=== PATIENT | male | born 1955 | race Caucasian/White ===

== ENCOUNTER 2018-05-07 11:02 | Inpatient (IN) ==
[2018-05-09] MEDS ORDERED: MethylPREDNISolone Sod Succinate Inj 125 MG/2 ML Vial ONE (06:25)
[2018-05-09] MEDS ORDERED: Heparin - SQ 10,000 UNITS/ML Vial SQ ONE (06:25)
--- NOTE | 2018-05-09 08:47 | XR ---
EXAM DATE: 05/09/2018 8:43 AM EDT AGE/SEX: 62 years / Male INDICATIONS: Update on right pneumothorax. CLINICAL DATA: This is the patient's subsequent encounter. Patient reports that signs and symptoms h ave been present for 2 days and indicates a pain score of 0/10. MEDICAL/SURGICAL HISTORY: None. . Abdominal aortic aneurysm repair. Right sided chest tube. COMPARISON: No prior exams available for comparison. FINDINGS: Moderate right pneumothorax with parietal and visceral pleura by 3 cm laterally. Left lung clear. Mild compensated cardiomegaly CONCLUSION: Persistent right pneumothorax. Electronically signed by: Ben Monroy MD 05/09/2018 8:46 AM EDT
--- NOTE | 2018-05-09 08:48 | XR ---
EXAM DATE: 05/09/2018 8:45 AM EDT AGE/SEX: 62 years / Male INDICATIONS: Evaluate right pneumothorax post chest tube placement. CLINICAL DATA: This is the patient's subsequent encounter. Patient reports that signs and symptoms h ave been present for 2 days and indicates a pain score of 0/10. MEDICAL/SURGICAL HISTORY: None. . Abdominal aortic aneurysm repair. Right sided chest tube. COMPARISON: [facility] – [place]ST 1V SINGLE AP, 05/09/2018. . FINDINGS: No interval change in the right pneumothorax. Compensated cardiomegaly. Left lung clear. CONCLUSION: Persistent right pneumothorax, no interval change Electronically signed by: Ben Monroy MD 05/09/2018 8:46 AM EDT
[2018-05-09] MEDS ORDERED: MethylPREDNISolone Sod Succinate Inj 125 MG/2 ML Vial IV.PUSH SCH (09:00)
[2018-05-09] MEDS ORDERED: Heparin - SQ 10,000 UNITS/ML Vial SQ SCH (09:00)
[2018-05-09] MEDS ORDERED: fentaNYL Citrate Inj 100 MCG/2 ML Ampul IV.PUSH ONE (09:00)
--- NOTE | 2018-05-09 09:12 | P.PNCC ---
Subjective Subjective Remarks/Hospital Course: Patient is a 62-year-old obese male with past medical history significant for long-standing tobacco abuse, history of AAA status post repair who presented to the emergency department with ongoing shortness of breath and cough. Apparently he woke up yesterday morning with severe coughing spell which progressed to severe shortness of breath and chest pain. Chest x-ray done in ED showed a spontaneous pneumothorax on the right side. A right pigtail chest tube was placed with expansion of pneumothorax. Patient was admitted to the hospitalist service I was contacted today by Dr. Liao as the patient was acutely short of breath. A stat chest x-ray which showed large tension pneumothorax in the right -sided with dislodgment of the pigtail chest tube. Patient was emergently moved to the ICU where I evaluated him. Patient in severe distress oxygen saturation 75% on 100% nonrebreather. Severe wheezing heard on the left side diminished air entry on the right side. Patient is in respiratory extremis. After explaining the procedure I placed emergent right-sided pigtail catheter with immediate relief of symptoms and improvement in O2 sat. Over the next 5 minutes oxygen saturation improved to 90%. Patient was given [id number] breathing treatments. For COPD exacerbation I will place the patient on DuoNeb every 4 hours scheduled and as needed, IV Solu-Medrol 125 mg 1 and 60 mg IV Q 8 hours. Also start him on Symbicort and Spiriva. IV Levaquin for empiric coverage of COPD exacerbation. Will use BiPAP as needed Patient is breathing more comfortably today facemask oxygen. But chest x-ray today a.m. shows right sided moderate pneumothorax. Despite right pigtail chest tube in place. I will place a large bore chest tube today patient agreeable Objective Vital Signs / I&O: Vital Signs 05/09/18 00:00 05/09/18 04:00 05/09/18 05:15 Temperature 97.7 F 97.7 F Pulse Rate 90 70 76 Respiratory Rate 16 15 18 Blood Pressure 133/60 128/59 L Pulse Oximetry 91 L 91 L Intake & Output 05/08/18 05/09/18 05/09/18 18:59 06:59 18:59 Intake Total 240 / 240 Output Total 800 / 800 Balance -560 / -560 Weight 115 kg 117.3 kg Intake: Oral 240 / 240 Output: Urine 800 / 800 Other: # Voids 3 Result Diagrams: 05/07/18 11:00 05/07/18 11:00 Objective Remarks: GENERAL: Well-nourished obese white male, in mild distress, on simple mask SKIN: Warm and dry EYES: No scleral icterus. No injection or drainage. ENT: Simple mask in place CARDIOVASCULAR: S1-S2 normal no murmurs RESPIRATORY: Air entry diminished on the right side bilateral mild wheezing. Right-sided pigtail catheter in place with 1+ leak GASTROINTESTINAL: Abdomen soft, non-tender. Obese protuberant Extremities: No obvious deformities. NEUROLOGICAL: Awake and alert. No focal deficits Assessment and Plan - Assessment and Plan Plan: ASSESSMENT: Recurrent right-sided pneumothorax Large right tension pneumothorax status post right-sided chest tube Acute hypoxemic respiratory failure Acute COPD exacerbation History of AAA repair Tobacco abuse PLAN: NEURO: -As needed morphine for pain otherwise minimize sedation RESP: -s/p Right 10 [place] pigtail chest tube emergently placed for right-sided tension pneumothorax 05/08 -There is some reexpansion of pneumothorax without tension, plan to place new large bore chest tube today -Avoid BiPAP if possible -IV Solu-Medrol 125 mg IV 1 and 60 mg IV every 8 hours -DuoNeb every 4 hours, Symbicort, and Spiriva. DuoNeb every 2 hours as needed for shortness of breath -Levaquin 500 mg IV daily 24 hours -Strongly advised to quit smoking CV: -Normal saline IV fluids 50 ml per hour for 24 hours -Continue aspirin 325 mg daily GI: -Heart healthy diet after new chest tube is placed : -Monitor renal function closely. No indication for Bryant catheter ID: -Check sputum culture if available, IV Levaquin empirically HEME: -Monitor CBC, CMP, coags if needed ENDO: -Electrolyte replacement per ICU protocol PROPH: -Bilateral lower extremity SCDs. Heparin 5000 units subcu every 8 hours-hold for chest tube placement LINES: -Utilize peripheral IVs, central line if needed CC time 32 min excluding procedures Code Status: Full
[2018-05-09] MEDS ORDERED: Lidocaine 1%/Epinephrine 1:100,000 Inj 50 ML Vial ONE (09:34)
--- NOTE | 2018-05-09 10:13 | P.PCN ---
Date of procedure: 05/09/18 Pre-op diagnosis: Large right pneumothorax Post-op diagnosis: same Procedure: PROCEDURE: Right-sided 20 F chest tube placement INDICATION: Hypoxemic respiratory failure, large right pneumothorax CONSENT: Consent was obtained from patient prior to the procedure. Indications, risks, and benefits were explained. PROCEDURE SUMMARY: Chest x-ray, reviewed, the appropriate side was confirmed. I wore a surgical cap , mask with protective eyewear, sterile gown and sterile gloves throughout the procedure. The patient was prepped and draped in a sterile manner using chlorhexidine scrub after the appropriate level was confirmed. 1% lidocaine with epi was used to anesthetize the skin, subcutaneous tissue, superior aspect of the rib periosteum and parietal pleura. A 1 cml skin incision was made at the marked site and Edyta forceps was used to blunt dissect to the intercostal space and then to enter the pleural space. There was a large gaxiola of air. Finger was used to explore the track and the pleural space. A 20F chest tube was placed and connected to -40 wall suction, and there was initially 4+ airleak. Chest tube was secured with 0 silk sutures and occlusive dressing was applied. Oxygen saturation improved 95. A post-procedure chest x-ray is pending at the time of this note. Estimated blood loss is < 3 ml. Anesthesia: local Surgeon: Bety Mayfield Estimated blood loss (mL): 3 Pathology: none sent Condition: stable Disposition: ICU
--- NOTE | 2018-05-09 11:24 | XR ---
EXAM DATE: 05/09/2018 11:22 AM EDT AGE/SEX: 62 years / Male INDICATIONS: Evaluate right side pneumothorax CLINICAL DATA: This is the patient's subsequent encounter. Patient reports that signs and symptoms h ave been present for 1 day and indicates a pain score of 0/10. MEDICAL/SURGICAL HISTORY: None. Abdominal aortic aneurysm repair. Right chest tube COMPARISON: [facility] – [place] CHEST 1V SINGLE AP, 05/09/2018. . FINDINGS: Good reexpansion of the right lung with large bore chest tube in the right apex. Minimal parenchymal changes left lung. Mild compensated cardiomegaly. CONCLUSION: Good reexpansion of right lung with large bore chest tube. Electronically signed by: Ben Monroy MD 05/09/2018 11:23 AM EDT
[2018-05-09] MEDS ORDERED: Sod Chloride 0.9% Inj 1,000 ML IV.SIG SCH (12:45)
[2018-05-09] MEDS: guaiFENesin/Dextromethorphan 200 MG/20 MG 10 ML UDC PO PRN ×2 (12:47→16:52)
[2018-05-09] MEDS: Heparin - SQ 10,000 UNITS/ML Vial SQ SCH ×2 (13:27→21:06)
[2018-05-09] MEDS: MethylPREDNISolone Sod Succinate Inj 125 MG/2 ML Vial IV.PUSH SCH ×2 (13:29→21:07)
[2018-05-09] MEDS: Budesonide-Formoterol 80/4.5 MCG 6.9 GM Inhaler INH SCH ×2 (21:10→21:19)
--- NOTE | 2018-05-10 03:13 | XR ---
EXAM DATE: 05/10/2018 3:07 AM EDT AGE/SEX: 62 years / Male INDICATIONS: Evaluate right side pneumothorax. CLINICAL DATA: This is the patient's subsequent encounter. Patient reports that signs and symptoms h ave been present for 3 days and indicates a pain score of Nonresponsive. MEDICAL/SURGICAL HISTORY: None. . Abdominal aortic aneurysm repair. Right chest tube. COMPARISON: [facility] – [place], CHEST 1V SINGLE AP, 05/09/2018. . FINDINGS: Right chest tube remains projected in the right apex. No evidence of pneumothorax. There is a new opa city in the right lower lung having configuration suggesting fluid in the minor fissure. No infiltrat es seen in the left lung. Stable subcutaneous emphysema about the right chest wall. CONCLUSION: 1. No evidence of pneumothorax. Right chest tube in place. 2. New opacity in the right lower lung suggesting loculated fluid in the minor fissure. Electronically signed by: Herber Mathis MD 05/10/2018 3:12 AM EDT
[2018-05-10 05:03] LABS: Hematocrit 38.6 % (39.0-51.0); Hemoglobin 12.8 gm/dL (13.0-17.0); Mean Corpuscular HGB Conc 33.2 % (32.0-36.0); Mean Corpuscular Hemoglobin 31.4 pg (27.0-34.0); Mean Corpuscular Volume 94.6 fL (80.0-100.0); Mean Platelet Volume 8.4 fL (7.0-11.0); Platelet Count 355 th/mm3 (150-450); Red Blood Count 4.08 mil/mm3 (4.50-5.90); Red Cell Distribution Width 14.7 % (11.6-17.2); White Blood Count 15.5 th/mm3 (4.0-11.0)
[2018-05-10] MEDS: Heparin - SQ 10,000 UNITS/ML Vial SQ SCH ×3 (06:37→21:04)
[2018-05-10] MEDS: MethylPREDNISolone Sod Succinate Inj 125 MG/2 ML Vial IV.PUSH SCH ×3 (06:37→21:03)
--- NOTE | 2018-05-10 09:20 | P.PN ---
Subjective Interval history: Nursing denies any deterioration since last night. Patient himself says he feels much better, shortness of breath is much improved. Physical Exam Vital signs: Vital Signs 05/09/18 10:10 05/09/18 12:00 05/09/18 12:43 Temperature 97.7 F Pulse Rate 68 Respiratory Rate Blood Pressure 159/68 H Pulse Oximetry 95 92 L 93 L 05/09/18 16:00 05/09/18 20:00 05/09/18 21:06 Temperature 98 F 97.9 F Pulse Rate 68 82 Respiratory Rate 22 Blood Pressure 132/59 L 168/72 H Pulse Oximetry 93 L 93 L 93 L 05/10/18 00:55 05/10/18 00:59 05/10/18 03:17 Temperature 97.7 F Pulse Rate 77 Respiratory Rate 16 Blood Pressure 180/77 H 157/75 H Pulse Oximetry 93 L 05/10/18 04:00 05/10/18 04:03 05/10/18 08:46 Temperature 97.7 F Pulse Rate 65 61 Respiratory Rate 15 15 Blood Pressure 150/70 H Pulse Oximetry 92 L 94 L Intake & Output 05/09/18 05/10/18 05/10/18 18:59 06:59 18:59 Intake Total 820 / 820 1260 / 1260 Output Total 1999 1400 / 1400 Balance -1180 / -1180 -140 / -140 Weight 111.1 kg Intake: Oral 820 / 820 1260 / 1260 Output: Urine 1999 1400 / 1400 Other: # Voids 3 2 Narrative: Good air expansion on bilateral lung sabillon, slight wheezing heard on the right lung field, 2 chest tubes in on the right thorax Unlabored breathing, no acute distress Results - Labs CBC & Chem 7: 05/10/18 04:09 05/07/18 11:00 Laboratory Results - last 24 hr 05/10/18 04:09 WBC 15.5 H RBC 4.08 L Hgb 12.8 L Hct 38.6 L MCV 94.6 MCH 31.4 MCHC 33.2 RDW 14.7 Plt Count 355 MPV 8.4 - Imaging Impressions Chest X-Ray 05/09/18 10:14 CONCLUSION: Good reexpansion of right lung with large bore chest tube. Chest X-Ray 05/10/18 00:00 CONCLUSION: 1. No evidence of pneumothorax. Right chest tube in place. 2. New opacity in the right lower lung suggesting loculated fluid in the minor fissure. Assessment and Plan - Plan Recurrent right-sided pneumothorax likely secondary to ruptured bleb secondary to underlying undiagnosed COPD -Large right tension pneumothorax status post right-sided chest tube -Acute hypoxemic respiratory failure -Acute COPD exacerbation - consulting pulmonology -Avoid BiPAP if possible -IV Solu-Medrol 125 mg IV 1 and 60 mg IV every 8 hours -DuoNeb every 4 hours, Symbicort, and Spiriva. DuoNeb every 2 hours as needed for shortness of breath -Levaquin 500 mg IV daily 24 hours -Bilateral lower extremity SCDs. Heparin 5000 units subcu every 8 hours-hold for chest tube placement
[2018-05-10] MEDS: Budesonide-Formoterol 80/4.5 MCG 6.9 GM Inhaler INH SCH ×2 (10:14→21:04)
[2018-05-11] MEDS: MethylPREDNISolone Sod Succinate Inj 125 MG/2 ML Vial IV.PUSH SCH ×3 (05:41→21:58)
[2018-05-11] MEDS: Heparin - SQ 10,000 UNITS/ML Vial SQ SCH ×3 (05:41→21:59)
[2018-05-11] MEDS: Budesonide-Formoterol 80/4.5 MCG 6.9 GM Inhaler INH SCH ×2 (10:08→22:00)
--- NOTE | 2018-05-11 16:02 | P.PN ---
Subjective Interval history: Nursing denies any deterioration since last night. Patient himself reports feeling no shortness of breath. Reports mild chest pain at insertion sites. Physical Exam Vital signs: Vital Signs 05/10/18 16:35 05/10/18 20:00 05/10/18 21:20 Temperature 98.1 F Pulse Rate 73 76 Respiratory Rate 19 24 Blood Pressure 151/72 H Pulse Oximetry 97 05/10/18 22:35 05/10/18 22:36 05/11/18 00:00 Temperature 98.6 F Pulse Rate 66 Respiratory Rate 16 14 Blood Pressure 163/71 H Pulse Oximetry 98 05/11/18 04:00 05/11/18 04:23 05/11/18 08:00 Temperature 98.4 F 98.0 F Pulse Rate 62 67 Respiratory Rate 10 L 12 Blood Pressure 153/78 H 142/65 H Pulse Oximetry 94 L 94 L 05/11/18 12:00 05/11/18 12:05 05/11/18 13:04 Temperature 98.6 F Pulse Rate 70 77 Respiratory Rate 17 18 12 Blood Pressure 174/96 H Pulse Oximetry 98 Intake & Output 05/10/18 05/11/18 05/11/18 18:59 06:59 18:59 Intake Total 1200 / 1200 720 / 720 Output Total 875 / 875 1550 / 1550 Balance 325 / 325 -830 / -830 Weight 118 kg Intake: Oral 1200 / 1200 720 / 720 Output: Urine 875 / 875 1550 / 1550 Other: # Voids 1 3 Narrative: [address] over the right hemithorax. Unlabored breathing, clear lungs bilaterally No cyanosis Results - Labs CBC & Chem 7: 05/10/18 04:09 05/07/18 11:00 Assessment and Plan - Plan Recurrent right-sided pneumothorax likely secondary to ruptured bleb secondary to underlying undiagnosed COPD -Large right tension pneumothorax status post right-sided chest tube -Acute hypoxemic respiratory failure -Acute COPD exacerbation -pulmonology following; managing Chest tubes -Avoid BiPAP if possible - -DuoNeb every 4 hours, Symbicort, and Spiriva. DuoNeb -Levaquin -Bilateral lower extremity SCDs. Heparin 5000 units subcu every 8 hours-hold for chest tube placement
--- NOTE | 2018-05-11 19:11 | P.PNPL ---
Subjective Interval history: 62 YOWM with Nicotine use, AAA, Rt PTX Breathing better On NC Has mild chest pain Physical Exam Vital signs: Vital Signs 05/10/18 20:00 05/10/18 21:20 05/10/18 22:35 Temperature 98.1 F Pulse Rate 76 66 Respiratory Rate 24 16 Blood Pressure 151/72 H Pulse Oximetry 97 05/10/18 22:36 05/11/18 00:00 05/11/18 04:00 Temperature 98.6 F 98.4 F Pulse Rate 62 Respiratory Rate 14 10 L Blood Pressure 163/71 H 153/78 H Pulse Oximetry 98 05/11/18 04:23 05/11/18 08:00 05/11/18 12:00 Temperature 98.0 F 98.6 F Pulse Rate 67 70 Respiratory Rate 12 17 Blood Pressure 142/65 H 174/96 H Pulse Oximetry 94 L 94 L 98 05/11/18 12:05 05/11/18 13:04 05/11/18 16:00 Temperature 98.3 F Pulse Rate 77 69 Respiratory Rate 18 12 26 H Blood Pressure 153/72 H Pulse Oximetry 95 Intake & Output 05/11/18 05/11/18 05/12/18 06:59 18:59 06:59 Intake Total 720 / 720 720 / 720 Output Total 1550 / 1550 2024 Balance -830 / -830 -1305 / -1305 Weight 118 kg Intake: Oral 720 / 720 720 / 720 Output: Urine 1550 / 1550 2024 Other: # Voids 3 5 Date of Last Bowel Movement 05/10/18 # Bowel Movements 0 GENERAL: SKIN: Warm and dry. HEAD: Normocephalic. EYES: No scleral icterus. No injection or drainage. NECK: Supple, trachea midline. No JVD or lymphadenopathy. CARDIOVASCULAR: Regular rate and rhythm without murmurs, gallops, or rubs. RESPIRATORY: Breath sounds equal bilaterally. No accessory muscle use. Rt chest chest tubes GASTROINTESTINAL: Abdomen soft, non-tender, nondistended. MUSCULOSKELETAL: No cyanosis, or edema. BACK: Nontender without obvious deformity. No CVA tenderness. Assessment and Plan - Plan IMPRESSION: Right PTX COPD Nicotine use H/O AAA repair Chest wall pain PLAN: Chest tubes to suction CXR in AM Supplement 02 Percocet for pain
--- NOTE | 2018-05-12 04:15 | XR ---
EXAM DATE: 05/12/2018 4:09 AM EDT AGE/SEX: 62 years / Male INDICATIONS: Evaluate for pneumothorax. CLINICAL DATA: This is the patient's subsequent encounter. Patient reports that signs and symptoms h ave been present for 3 days and indicates a pain score of 0/10. MEDICAL/SURGICAL HISTORY: None. . Abdominal aortic aneurysm repair. Right chest tube. COMPARISON: [facility], CHEST 1V SINGLE AP, 05/10/2018. [facility], CHEST 1V SINGLE AP, 05/09/2018. [facility], CHEST 1 V SINGLE AP, 05/09/2018. . FINDINGS: Right chest tube tip remains projected in the lateral right apex. No evidence of pneumothorax. Patchy areas of infiltrate in the central lower left lung similar to prior. Interval resolution of the opac ity in the right lower lung. Decreasing subcutaneous emphysema about the lateral right chest wall. CONCLUSION: 1. No evidence of pneumothorax. Chest tube stable position. 2. Interval resolution of the loculated pleural effusion in the right minor fissure. Electronically signed by: Herber Mathis MD 05/12/2018 4:14 AM EDT
[2018-05-12] MEDS: MethylPREDNISolone Sod Succinate Inj 125 MG/2 ML Vial IV.PUSH SCH ×3 (07:35→22:02)
[2018-05-12] MEDS: Heparin - SQ 10,000 UNITS/ML Vial SQ SCH ×3 (07:36→22:01)
[2018-05-12] MEDS: Budesonide-Formoterol 80/4.5 MCG 6.9 GM Inhaler INH SCH ×2 (10:26→20:49)
--- NOTE | 2018-05-12 16:22 | P.PN ---
Subjective Interval history: Nursing reports that night nursing felt that 1 of the patient's chest tubes was getting dislodged. This morning the patient says he only has one chest tube and that it is water-sealed now per pulmonology. Denies any shortness of breath. Physical Exam Vital signs: Vital Signs 05/11/18 20:00 05/11/18 20:52 05/11/18 23:56 Temperature 98.4 F 97.8 F Pulse Rate 77 67 Respiratory Rate 18 18 Blood Pressure 166/77 H 194/87 H Pulse Oximetry 96 96 94 L 05/12/18 00:01 05/12/18 01:14 05/12/18 03:39 Temperature Pulse Rate 68 79 Respiratory Rate 16 19 Blood Pressure 155/72 H Pulse Oximetry 05/12/18 03:41 05/12/18 03:58 05/12/18 05:28 Temperature 98.1 F Pulse Rate 76 74 Respiratory Rate 18 Blood Pressure 158/99 H Pulse Oximetry 93 L 95 05/12/18 08:00 05/12/18 12:00 Temperature 98.5 F 98.4 F Pulse Rate 70 18 L Respiratory Rate 18 18 Blood Pressure 160/72 H 151/78 H Pulse Oximetry 92 L 96 Intake & Output 05/11/18 05/12/18 05/12/18 18:59 06:59 18:59 Intake Total 720 / 720 480 / 480 Output Total 2024 650 / 650 400 / 400 Balance -1305 / -1305 -170 / -170 -400 / -400 Weight 118 kg Intake: Oral 720 / 720 480 / 480 Output: Urine 2024 650 / 650 400 / 400 Chest Tube Drainage 0 / 0 #2 Mid-Axillary Chest 0 / 0 Other: # Voids 5 Date of Last Bowel Movement 05/10/18 05/12/18 # Bowel Movements 0 0 Narrative: Good air movement in bilateral lung sabillon Has mild crackles heard all throughout the right lung field Results - Labs CBC & Chem 7: 05/10/18 04:09 05/07/18 11:00 - Imaging Impressions Chest X-Ray 05/12/18 00:00 CONCLUSION: 1. No evidence of pneumothorax. Chest tube stable position. 2. Interval resolution of the loculated pleural effusion in the right minor fissure. Assessment and Plan - Plan Recurrent right-sided pneumothorax likely secondary to ruptured bleb secondary to underlying undiagnosed COPD -Large right tension pneumothorax status post right-sided chest tube -Acute hypoxemic respiratory failure -Acute COPD exacerbation -pulmonology following; now has one chest tube which is water-sealed. Anticipate discontinuing chest tube tomorrow. -Avoid BiPAP if possible - -DuoNeb every 4 hours, Symbicort, and Spiriva. DuoNeb -Levaquin -Bilateral lower extremity SCDs. Heparin 5000 units subcu every 8 hours-hold for chest tube placement
--- NOTE | 2018-05-12 16:38 | P.PNPL ---
Subjective Interval history: 62 YOWM with PTX One chest tube fell off has one chest tube to suction CXR no PTX no SOB Physical Exam Vital signs: Vital Signs 05/11/18 20:00 05/11/18 20:52 05/11/18 23:56 Temperature 98.4 F 97.8 F Pulse Rate 77 67 Respiratory Rate 18 18 Blood Pressure 166/77 H 194/87 H Pulse Oximetry 96 96 94 L 05/12/18 00:01 05/12/18 01:14 05/12/18 03:39 Temperature Pulse Rate 68 79 Respiratory Rate 16 19 Blood Pressure 155/72 H Pulse Oximetry 05/12/18 03:41 05/12/18 03:58 05/12/18 05:28 Temperature 98.1 F Pulse Rate 76 74 Respiratory Rate 18 Blood Pressure 158/99 H Pulse Oximetry 93 L 95 05/12/18 08:00 05/12/18 12:00 Temperature 98.5 F 98.4 F Pulse Rate 70 18 L Respiratory Rate 18 18 Blood Pressure 160/72 H 151/78 H Pulse Oximetry 92 L 96 Intake & Output 05/11/18 05/12/18 05/12/18 18:59 06:59 18:59 Intake Total 720 / 720 480 / 480 Output Total 2024 650 / 650 400 / 400 Balance -1305 / -1305 -170 / -170 -400 / -400 Weight 118 kg Intake: Oral 720 / 720 480 / 480 Output: Urine 2024 650 / 650 400 / 400 Chest Tube Drainage 0 / 0 #2 Mid-Axillary Chest 0 / 0 Other: # Voids 5 Date of Last Bowel Movement 05/10/18 05/12/18 # Bowel Movements 0 0 GENERAL: WBWN WM, NAD SKIN: Warm and dry. HEAD: Normocephalic. EYES: No scleral icterus. No injection or drainage. NECK: Supple, trachea midline. No JVD or lymphadenopathy. CARDIOVASCULAR: Regular rate and rhythm without murmurs, gallops, or rubs. RESPIRATORY: Breath sounds equal bilaterally. No accessory muscle use. Rt chest tube in place GASTROINTESTINAL: Abdomen soft, non-tender, nondistended. MUSCULOSKELETAL: No cyanosis, or edema. BACK: Nontender without obvious deformity. No CVA tenderness. Assessment and Plan - Plan IMPRESSION: Right PTX COPD Nicotine use H/O AAA repair Chest wall pain PLAN: Clamp Chest tubes CXR in AM Supplement 02 Percocet for pain If no ptx, will dc chest tube tommorow
--- NOTE | 2018-05-12 16:44 | P.PN ---
Subjective Interval history: RN reports that there was a concern that the patient had dislodged 1 of his chest tubes last night. This morning the patient only has one chest tube and it has been water-sealed. Denies any shortness of breath. Physical Exam Vital signs: Vital Signs 05/11/18 20:00 05/11/18 20:52 05/11/18 23:56 Temperature 98.4 F 97.8 F Pulse Rate 77 67 Respiratory Rate 18 18 Blood Pressure 166/77 H 194/87 H Pulse Oximetry 96 96 94 L 05/12/18 00:01 05/12/18 01:14 05/12/18 03:39 Temperature Pulse Rate 68 79 Respiratory Rate 16 19 Blood Pressure 155/72 H Pulse Oximetry 05/12/18 03:41 05/12/18 03:58 05/12/18 05:28 Temperature 98.1 F Pulse Rate 76 74 Respiratory Rate 18 Blood Pressure 158/99 H Pulse Oximetry 93 L 95 05/12/18 08:00 05/12/18 12:00 Temperature 98.5 F 98.4 F Pulse Rate 70 18 L Respiratory Rate 18 18 Blood Pressure 160/72 H 151/78 H Pulse Oximetry 92 L 96 Intake & Output 05/11/18 05/12/18 05/12/18 18:59 06:59 18:59 Intake Total 720 / 720 480 / 480 Output Total 2024 650 / 650 400 / 400 Balance -1305 / -1305 -170 / -170 -400 / -400 Weight 118 kg Intake: Oral 720 / 720 480 / 480 Output: Urine 2024 650 / 650 400 / 400 Chest Tube Drainage 0 / 0 #2 Mid-Axillary Chest 0 / 0 Other: # Voids 5 Date of Last Bowel Movement 05/10/18 05/12/18 # Bowel Movements 0 0 Narrative: right chest tube is in place Unlabored breathing bilaterally, very mild crepitus sounds heard over the right lung field otherwise good airflow in both lungs Results - Labs CBC & Chem 7: 05/10/18 04:09 05/07/18 11:00 - Imaging Impressions Chest X-Ray 05/12/18 00:00 CONCLUSION: 1. No evidence of pneumothorax. Chest tube stable position. 2. Interval resolution of the loculated pleural effusion in the right minor fissure. Assessment and Plan - Plan Recurrent right-sided pneumothorax likely secondary to ruptured bleb secondary to underlying undiagnosed COPD -Large right tension pneumothorax status post right-sided chest tube -Acute hypoxemic respiratory failure -Acute COPD exacerbation -pulmonology following; Now with one right-sided chest tube sealed off,-if no pneumothorax tomorrow can DC chest tube and possibly go home if clear with pulmonology -DuoNeb every 4 hours, Symbicort, and Spiriva. DuoNeb Levaquin -Bilateral lower extremity SCDs. Heparin 5000 units subcu every 8 hours-hold for chest tube placement
[2018-05-13] MEDS: Heparin - SQ 10,000 UNITS/ML Vial SQ SCH ×3 (06:05→21:44)
[2018-05-13] MEDS: MethylPREDNISolone Sod Succinate Inj 125 MG/2 ML Vial IV.PUSH SCH ×3 (06:06→21:45)
[2018-05-13] MEDS: Budesonide-Formoterol 80/4.5 MCG 6.9 GM Inhaler INH SCH ×2 (08:32→20:07)
--- NOTE | 2018-05-13 10:19 | XR ---
EXAM DATE: 05/13/2018 10:14 AM EDT AGE/SEX: 62 years / Male INDICATIONS: Pneumothorax CLINICAL DATA: This is the patient's subsequent encounter. Patient reports that signs and symptoms h ave been present for 1 week and indicates a pain score of 3/10. MEDICAL/SURGICAL HISTORY: None. . Abdominal aortic aneurysm repair. Right chest tube COMPARISON: [facility], CHEST 1V SINGLE AP, 05/12/2018. . FINDINGS: The right-sided chest remains in place. No definite pneumothorax is demonstrated. There continues to be subcutaneous emphysema along the right chest wall which appears to be increased compared to the pr ior study. The left lung is grossly clear. Heart size is stable. The bony structures are stable. CONCLUSION: Right-sided chest tube remains in place. No definite pneumothorax. Increasing subcutaneous emphysema along the right chest wall. Electronically signed by: Pillo Castellanos MD 05/13/2018 10:18 AM EDT
--- NOTE | 2018-05-13 10:41 | P.PNIM ---
Subjective Interval history: 62-year-old white male being admitted for pneumothorax. Patient was in his usual state of health until earlier this week when he had stuffy nose and a runny nose. Last night he had little bit shortness of breath but was able to go to sleep. However he woke up this morning with a substantial coughing spell and had cough associated chest pain. This eventually progressed to having substantial shortness of breath and thus he decided to seek medical attention. Patient was noted to be mildly hypoxic but normotensive upon arriving to the emergency department. he had chest x-ray done which showed a spontaneous pneumothorax in the right side. The ER physician performed chest tube insertion with improvement in the pneumothorax. Patient denies having any chest pain as of the coughing episodes except for after his chest tube was inserted. Doing well on NRB, speaking in complete sentences. Denies any nausea vomiting, denies any fevers or chills. 7-5 has had chest tube placed earlier in this admission it is clamped now PATIENT STATES STILL VERY SOB ON 6L BY SIMPLE MASK STILL HAS RIGHT SIDE CHEST TUBE IN PLACE VERY COARSE AND RHONCHI AND WHEEZES ON LUNG EXAM DW RN AND PT Physical Exam Vital signs: Vital Signs 05/12/18 12:00 05/12/18 16:00 05/12/18 19:03 Temperature 98.4 F 98.2 F Pulse Rate 18 L 85 105 H Respiratory Rate 18 16 18 Blood Pressure 151/78 H 174/88 H Pulse Oximetry 96 94 L 05/12/18 20:00 05/13/18 00:00 05/13/18 03:22 Temperature 97.8 F 97.3 F L 97.9 F Pulse Rate 75 66 71 Respiratory Rate 20 19 18 Blood Pressure 156/77 H 156/73 H 153/68 H Pulse Oximetry 95 94 L 96 05/13/18 03:53 05/13/18 08:00 05/13/18 09:17 Temperature 97.2 F L Pulse Rate 60 77 Respiratory Rate 18 16 Blood Pressure 179/84 H Pulse Oximetry 92 L Intake & Output 05/12/18 05/13/18 05/13/18 18:59 06:59 18:59 Intake Total 240 / 240 480 / 480 Output Total 400 / 400 1375 / 1375 Balance -160 / -160 -895 / -895 Weight 118 kg Intake: Oral 240 / 240 480 / 480 Output: Urine 400 / 400 1375 / 1375 Other: Date of Last Bowel Movement 05/12/18 05/12/18 # Bowel Movements 0 Narrative: GENERAL: AWAKE AND ALERT AND ORIENTED X3 HAS RIGHT SIDE CHEST TUBE SKIN: Warm and dry. HEAD: Atraumatic. Normocephalic. EYES: Pupils equal and round. No scleral icterus. No injection or drainage. EOMI ENT: No nasal bleeding or discharge. Mucous membranes pink and moist. NECK: Trachea midline. No JVD. CARDIOVASCULAR: Regular rate and rhythm. S1-S2 no S3 or S4 no heave or thrill or rub or gallop RESPIRATORY: No accessory muscle use. Rhonchi and wheezes throughout both lung sabillon bilaterally. Very coarse breath sounds Breath sounds equal bilaterally. GASTROINTESTINAL: Abdomen soft, non-tender, nondistended. Hepatic and splenic margins not palpable. MUSCULOSKELETAL: Extremities without clubbing, cyanosis, or edema. No obvious deformities. NEUROLOGICAL: Awake and alert. No obvious cranial nerve deficits. Motor grossly within normal limits. Five out of 5 muscle strength in the arms and legs. Normal speech. PSYCHIATRIC: Appropriate mood and affect; insight and judgment normal. Right-sided chest tube still in place clamped Results - Labs CBC & Chem 7: 05/10/18 04:09 05/07/18 11:00 Laboratory Results WBC 15.5 th/mm3 (4.0-11.0) H 05/10/18 04:09 RBC 4.08 mil/mm3 (4.50-5.90) L 05/10/18 04:09 Hgb 12.8 gm/dL (13.0-17.0) L 05/10/18 04:09 Hct 38.6 % (39.0-51.0) L 05/10/18 04:09 MCV 94.6 fL (80.0-100.0) 05/10/18 04:09 MCH 31.4 pg (27.0-34.0) 05/10/18 04:09 MCHC 33.2 % (32.0-36.0) 05/10/18 04:09 RDW 14.7 % (11.6-17.2) 05/10/18 04:09 Plt Count 355 th/mm3 (150-450) 05/10/18 04:09 MPV 8.4 fL (7.0-11.0) 05/10/18 04:09 Neut % (Auto) 36.6 % (16.0-70.0) 05/07/18 11:00 Lymph % (Auto) 46.2 % (9.0-44.0) H 05/07/18 11:00 [place] % (Auto) 9.4 % (0.0-8.0) H 05/07/18 11:00 Eos % (Auto) 6.6 % (0.0-4.0) H 05/07/18 11:00 Baso % (Auto) 1.2 % (0.0-2.0) 05/07/18 11:00 Neut # (Auto) 3.2 TH/MM3 (1.8-7.7) 05/07/18 11:00 Lymph # (Auto) 4.1 TH/MM3 (1.0-4.8) 05/07/18 11:00 [place] # (Auto) 0.8 TH/MM3 (0-0.9) 05/07/18 11:00 Eos # (Auto) 0.6 TH/MM3 (0-0.4) H 05/07/18 11:00 Baso # (Auto) 0.1 TH/MM3 (0-0.2) 05/07/18 11:00 CBC Comment DIFF FINAL 05/07/18 11:00 PT 10.3 SEC (9.8-11.6) 05/07/18 11:00 INR 1.0 RATIO 05/07/18 11:00 APTT 22.9 SEC (24.3-30.1) L 05/07/18 11:00 Puncture Site RT BRACHIAL 05/08/18 10:45 Patient Temperature 98.6 05/08/18 10:45 HCO3 24 mmol/L (22-26) 05/08/18 10:45 Base Excess -1.2 mmol/L (-2-2) 05/08/18 10:45 O2 Saturation 84 % (90-100) L* 05/08/18 10:45 ABG pH 7.33 (7.380-7.420) L 05/08/18 10:45 ABG pCO2 46 mmHg (38-42) H 05/08/18 10:45 ABG pO2 53 mmHg (61-120) L* 05/08/18 10:45 ABG O2 Content 16.1 Vol % (12.0-20.0) 05/08/18 10:45 ABG Carboxyhemoglobin 0.9 % (0-4) 05/08/18 10:45 ABG Methemoglobin 1.0 % (0-2) 05/08/18 10:45 Hemoglobin 13.7 G/DL (12.0-16.0) 05/08/18 10:45 O2 Delivery Device NRB 05/08/18 10:45 Liter Flow 15 L/M 05/08/18 10:45 Vent Setting [id number] 05/07/18 11:07 Inspired O2 100 % 05/07/18 11:07 Sodium 140 MEQ/L (136-145) 05/07/18 11:00 Potassium 3.8 MEQ/L (3.5-5.1) 05/07/18 11:00 Chloride 107 MEQ/L (98-107) 05/07/18 11:00 Carbon Dioxide 23.1 MEQ/L (21.0-32.0) 05/07/18 11:00 Anion Gap 10 MEQ/L (5-15) 05/07/18 11:00 BUN 18 MG/DL (7-18) 05/07/18 11:00 Creatinine 1.12 MG/DL (0.60-1.30) 05/07/18 11:00 Estimated GFR 66 ML/MIN (>89) L 05/07/18 11:00 Random Glucose 144 MG/DL (74-106) H 05/07/18 11:00 Calcium 9.0 MG/DL (8.5-10.1) 05/07/18 11:00 Magnesium 2.0 MG/DL (1.5-2.5) 05/07/18 11:00 Total Bilirubin 0.4 MG/DL (0.2-1.0) 05/07/18 11:00 AST 54 U/L (15-37) H 05/07/18 11:00 ALT 66 U/L (12-78) 05/07/18 11:00 Alkaline Phosphatase 79 U/L (45-117) 05/07/18 11:00 Total Creatine Kinase 148 U/L (39-308) 05/07/18 11:00 CK-MB (CK-2) 2.6 NG/ML (0.5-3.6) 05/07/18 11:00 Troponin I LESS THAN 0.02 NG/ML (0.02-0.05) L 05/07/18 11:00 B-Natriuretic Peptide 32 PG/ML (0-100) 05/07/18 11:00 Total Protein 8.0 GM/DL (6.4-8.2) 05/07/18 11:00 Albumin 4.1 GM/DL (3.4-5.0) 05/07/18 11:00 Nasal Screen MRSA (PCR) MRSA NOT DETECTED (NOT DETECT) 05/08/18 13:30 Impressions Chest X-Ray 05/13/18 00:00 CONCLUSION: Right-sided chest tube remains in place. No definite pneumothorax. Increasing subcutaneous emphysema along the right chest wall. - Imaging Impressions Chest X-Ray 05/13/18 00:00 CONCLUSION: Right-sided chest tube remains in place. No definite pneumothorax. Increasing subcutaneous emphysema along the right chest wall. - Procedures Chest tube on the right Assessment and Plan - Plan Recurrent right-sided pneumothorax likely secondary to ruptured bleb secondary to underlying undiagnosed COPD -Large right tension pneumothorax status post right-sided chest tube -Acute hypoxemic respiratory failure -Acute COPD exacerbation -pulmonology following; Now with one right-sided chest tube sealed off,-if no pneumothorax tomorrow can DC chest tube if clear with pulmonology -DuoNeb every 4 hours, Symbicort, and Spiriva. DuoNeb Levaquin ADD MUCINEX AND IS -Bilateral lower extremity SCDs. Heparin 5000 units subcu every 8 hours-hold for chest tube placement Code Status: FULL CODE Discussed Condition With: DEREJE RN AND PT Discharge Planning: WILL NEED HOME OXYGEN AND NEBULIZER AT DISCHARGE
[2018-05-13] MEDS: guaiFENesin 600 MG ER Tablet PO SCH ×2 (14:05→20:07)
--- NOTE | 2018-05-13 19:06 | P.PNPL ---
Subjective Interval history: 62 YOWM with PTX One chest tube fell off has one chest tube to suction CXR no PTX but has increased SQ Emphysema SOB, felt better after putting chest tube to suction Physical Exam Vital signs: Vital Signs 05/12/18 20:00 05/13/18 00:00 05/13/18 03:22 Temperature 97.8 F 97.3 F L 97.9 F Pulse Rate 75 66 71 Respiratory Rate 20 19 18 Blood Pressure 156/77 H 156/73 H 153/68 H Pulse Oximetry 95 94 L 96 05/13/18 03:53 05/13/18 08:00 05/13/18 09:17 Temperature 97.2 F L Pulse Rate 60 77 Respiratory Rate 18 16 Blood Pressure 179/84 H Pulse Oximetry 92 L 05/13/18 11:07 05/13/18 12:00 05/13/18 16:58 Temperature 97.6 F Pulse Rate 81 80 Respiratory Rate 19 18 Blood Pressure 158/74 H Pulse Oximetry 97 95 Intake & Output 05/13/18 05/13/18 05/14/18 06:59 18:59 06:59 Intake Total 480 / 480 960 / 960 Output Total 1375 / 1375 600 / 600 Balance -895 / -895 360 / 360 Weight 118 kg Intake: Oral 480 / 480 960 / 960 Output: Urine 1375 / 1375 600 / 600 Other: Date of Last Bowel Movement 05/12/18 # Bowel Movements 0 Narrative: GENERAL: AWAKE AND ALERT AND ORIENTED X3 HAS RIGHT SIDE CHEST TUBE SKIN: Warm and dry. HEAD: Atraumatic. Normocephalic. EYES: Pupils equal and round. No scleral icterus. No injection or drainage. EOMI ENT: No nasal bleeding or discharge. Mucous membranes pink and moist. NECK: Trachea midline. No JVD. CARDIOVASCULAR: Regular rate and rhythm. S1-S2 no S3 or S4 no heave or thrill or rub or gallop RESPIRATORY: No accessory muscle use. Rhonchi and wheezes throughout both lung sabillon bilaterally. Very coarse breath sounds Breath sounds equal bilaterally. SQ Emphysema GASTROINTESTINAL: Abdomen soft, non-tender, nondistended. Hepatic and splenic margins not palpable. MUSCULOSKELETAL: Extremities without clubbing, cyanosis, or edema. No obvious deformities. NEUROLOGICAL: Awake and alert. No obvious cranial nerve deficits. Motor grossly within normal limits. Five out of 5 muscle strength in the arms and legs. Normal speech. PSYCHIATRIC: Appropriate mood and affect; insight and judgment normal. Assessment and Plan - Plan IMPRESSION: Right PTX COPD Nicotine use H/O AAA repair Chest wall pain PLAN: Chest tubes to suction Rpt cxr in AM CXR in AM Supplement 02 Percocet for pain
[2018-05-14] MEDS: MethylPREDNISolone Sod Succinate Inj 125 MG/2 ML Vial IV.PUSH SCH ×3 (05:44→21:59)
[2018-05-14] MEDS: Heparin - SQ 10,000 UNITS/ML Vial SQ SCH ×3 (05:44→21:59)
--- NOTE | 2018-05-14 06:56 | XR ---
EXAM DATE: 05/14/2018 6:50 AM EDT AGE/SEX: 62 years / Male INDICATIONS: Short of breath, cough, evaluate right side chest tube and pneumothorax CLINICAL DATA: This is the patient's subsequent encounter. Patient reports that signs and symptoms h ave been present for 1 week and indicates a pain score of 2/10. MEDICAL/SURGICAL HISTORY: . pneumothorax, subcutaneous emphysema . chest tube COMPARISON: . FINDINGS: Left base parenchymal consolidation again noted, not significantly changed. Small right pleural effus ion, some loculated laterally also not significantly changed. Right chest tube remains in place. A small apical pneumothorax is suspected. There is persistent ches t wall emphysema. Stable heart size, upper limits of normal. CONCLUSION: 1. Right chest tube with a tiny apical pneumothorax. 2. Very small right pleural effusion not significantly changed. 3. No significant change left base consolidation. 4. Persistent chest wall emphysema. Electronically signed by: Chaparro Patel MD 05/14/2018 6:55 AM EDT
[2018-05-14 07:20] LABS: Baso % (Auto) 0.1 % (0.0-2.0); Hematocrit 39.9 % (39.0-51.0); Hemoglobin 13.4 gm/dL (13.0-17.0); Lymph # (Auto) 1.2 th/mm3 (1.0-4.8); Lymph % (Auto) 7.8 % (9.0-44.0); Mean Corpuscular HGB Conc 33.7 % (32.0-36.0); Mean Corpuscular Volume 94.9 fL (80.0-100.0); Mean Platelet Volume 8.5 fL (7.0-11.0); Mono # (Auto) 0.9 th/mm3 (0.0-0.9); Mono % (Auto) 5.6 % (0.0-8.0); Neut # (Auto) 13.3 th/mm3 (1.8-7.7); Neut % (Auto) 86.5 % (16.0-70.0); Platelet Count 324 th/mm3 (150-450); Red Cell Distribution Width 14.4 % (11.6-17.2); White Blood Count 15.4 th/mm3 (4.0-11.0)
[2018-05-14 07:44] LABS: Alanine Aminotransferase 179 U/L (12-78); Albumin 3.1 g/dL (3.4-5.0); Alkaline Phosphatase 69 U/L (45-117); Anion Gap 11 meq/L (5-15); Aspartate Aminotransferase 79 U/L (15-37); Blood Urea Nitrogen 33 mg/dL (7-18); Calcium 8.5 mg/dL (8.5-10.1); Carbon Dioxide 24.2 meq/L (21.0-32.0); Chloride 108 meq/L (98-107); Glomerular Filtration Rate 63 mL/min (>89); Glucose,Random 291 mg/dL (74-106); Magnesium 2.4 mg/dL (1.5-2.5); Phosphorus 2.6 mg/dL (2.5-4.9); Potassium 4.7 meq/L (3.5-5.1); Sodium 143 meq/L (136-145); Thyroid Stimulating Hormone 0.212 uIU/mL (0.358-3.740); Total Protein 6.4 g/dL (6.4-8.2)
[2018-05-14] MEDS: guaiFENesin 600 MG ER Tablet PO SCH ×2 (08:21→22:00)
--- NOTE | 2018-05-14 10:50 | XR ---
EXAM DATE: 05/14/2018 10:29 AM EDT AGE/SEX: 62 years / Male INDICATIONS: Pneumothorax. CLINICAL DATA: This is the patient's subsequent encounter. Patient reports that signs and symptoms h ave been present for 4 - 6 days and indicates a pain score of 0/10. MEDICAL/SURGICAL HISTORY: None. . Abdominal aortic aneurysm repair. Right chest tube COMPARISON: [facility], CHEST 1V SINGLE AP, 05/14/2018. . , FINDINGS: The right chest tube remains in place. No definite pneumothorax is seen. However, there is some limit ation due to the subcutaneous emphysema overlying the right chest. There has been no significant zuniga ges compared to the prior study. There is some mild atelectasis in the left lung base which is stable . The heart size is stable. No significant pleural effusions. CONCLUSION: Right-sided chest tube remains in place with no significant pneumothorax. No significant changes compared to the prior study. Electronically signed by: Pillo Castellanos MD 05/14/2018 10:49 AM EDT
--- NOTE | 2018-05-14 11:49 | P.PNIM ---
Subjective Interval history: Reports breathing in the same not worse. No productive cough. Feels better when chest tubes on suction. Reports that as needed breathing treatments to help Physical Exam Vital signs: Vital Signs 05/13/18 12:00 05/13/18 16:00 05/13/18 16:58 Temperature 97.6 F 97.7 F Pulse Rate 81 80 80 Respiratory Rate 19 18 18 Blood Pressure 158/74 H 145/82 H Pulse Oximetry 95 98 05/13/18 19:51 05/13/18 20:10 05/13/18 23:57 Temperature 97.8 F Pulse Rate 85 91 H 71 Respiratory Rate 18 Blood Pressure 159/89 H Pulse Oximetry 92 L 05/14/18 00:00 05/14/18 04:00 05/14/18 08:00 Temperature 97.6 F 98.0 F 97.6 F Pulse Rate 85 68 64 Respiratory Rate 17 18 18 Blood Pressure 167/83 H 158/76 H 146/71 H Pulse Oximetry 99 97 95 Intake & Output 05/13/18 05/14/18 05/14/18 18:59 06:59 18:59 Intake Total 960 / 960 720 / 720 Output Total 600 / 600 1400 / 1400 Balance 360 / 360 -680 / -680 Intake: Oral 960 / 960 720 / 720 Output: Urine 600 / 600 1400 / 1400 Chest Tube Drainage 0 / 0 #2 Mid-Axillary Chest 0 / 0 Other: Date of Last Bowel Movement 05/12/18 05/12/18 05/13/18 # Bowel Movements 0 Narrative: GENERAL: This is a well-nourished, well-developed patient, in no apparent distress. CARDIOVASCULAR: Regular rate and rhythm without murmurs, gallops, or rubs. RESPIRATORY: Right-sided expiratory wheeze with some crackles Right chest wallchest tube in place GASTROINTESTINAL: Abdomen soft, non-tender, nondistended. Normal active bowel sounds MUSCULOSKELETAL: Extremities without clubbing, cyanosis, or edema. NEURO: Alert & Oriented x4 to person, place, time, situation. Moves all ext x4 Results - Labs CBC & Chem 7: 05/14/18 05:05 05/14/18 05:35 Laboratory Results - last 24 hr 05/14/18 05/14/18 05/14/18 05:05 05:35 05:35 WBC 15.4 H RBC 4.20 L Hgb 13.4 Hct 39.9 MCV 94.9 MCH 32.0 MCHC 33.7 RDW 14.4 Plt Count 324 MPV 8.5 Prelim Diff (Auto) Slide review pending Neut % (Auto) 86.5 H Lymph % (Auto) 7.8 L [place] % (Auto) 5.6 Eos % (Auto) 0.0 Baso % (Auto) 0.1 Neut # (Auto) 13.3 H Lymph # (Auto) 1.2 [place] # (Auto) 0.9 Eos # (Auto) 0.0 Baso # (Auto) 0.0 WBC Differential . Diff Scan Auto diff confirmed Differential Comment . Sodium 143 Potassium 4.7 Chloride 108 H Carbon Dioxide 24.2 Anion Gap 11 BUN 33 H Creatinine 1.16 Estimated GFR 63 L Random Glucose 291 H Calcium 8.5 Phosphorus 2.6 Magnesium 2.4 Total Bilirubin 0.3 AST 79 H ALT 179 H Alkaline Phosphatase 69 Total Protein 6.4 Albumin 3.1 L TSH 0.212 L Free T4 0.76 - Imaging Impressions Chest X-Ray 05/14/18 00:00 CONCLUSION: 1. Right chest tube with a tiny apical pneumothorax. 2. Very small right pleural effusion not significantly changed. 3. No significant change left base consolidation. 4. Persistent chest wall emphysema. Chest X-Ray 05/14/18 00:00 CONCLUSION: Right-sided chest tube remains in place with no significant pneumothorax. No significant changes compared to the prior study. - Procedures Chest tube on the right Assessment and Plan - Plan 1. Recurrent right-sided pneumothorax likely secondary to ruptured bleb secondary to underlying undiagnosed COPD with continued hypoxemia -Large right tension pneumothorax status post right-sided chest tube, management per pulmonary Dr. Lennon -Acute hypoxemic respiratory failure -Acute COPD exacerbationstart scheduled DuoNeb treatments -pulmonology following; -DuoNeb every 6 hours, Levaquin Encourage incentive spirometry use Dose of Lasix given today Portable chest x-ray reviewed 2. Leukocytosis likely due to steroids 3. DVT prophylaxis-Bilateral lower extremity SCDs. Heparin 5000 units subcu every 8 hours-hold for chest tube placement Discharge Planning: Home when medically stable
[2018-05-14 12:47] LABS: Hemoglobin A1c 6.8 % (4.3-6.0)
[2018-05-14] MEDS: Budesonide-Formoterol 80/4.5 MCG 6.9 GM Inhaler INH SCH ×2 (14:46→22:06)
[2018-05-14] MEDS: levoFLOXacin 750 MG Tablet PO SCH (14:50)
--- NOTE | 2018-05-14 18:40 | P.PNPL ---
Subjective Interval history: 62 YOWM with PTX Chest tube to suction CXR no ptx Denies sob or CP Physical Exam Vital signs: Vital Signs 05/13/18 19:51 05/13/18 20:10 05/13/18 23:57 Temperature 97.8 F Pulse Rate 85 91 H 71 Respiratory Rate 18 Blood Pressure 159/89 H Pulse Oximetry 92 L 05/14/18 00:00 05/14/18 04:00 05/14/18 08:00 Temperature 97.6 F 98.0 F 97.6 F Pulse Rate 85 68 64 Respiratory Rate 17 18 18 Blood Pressure 167/83 H 158/76 H 146/71 H Pulse Oximetry 99 97 95 05/14/18 12:00 05/14/18 15:31 05/14/18 16:00 Temperature 98.3 F 97.6 F Pulse Rate 83 83 79 Respiratory Rate 19 19 18 Blood Pressure 131/58 L 125/57 L Pulse Oximetry 98 95 Intake & Output 05/13/18 05/14/18 05/14/18 18:59 06:59 18:59 Intake Total 960 / 960 720 / 720 1200 / 1200 Output Total 600 / 600 1400 / 1400 2100 / 2100 Balance 360 / 360 -680 / -680 -900 / -900 Intake: Oral 960 / 960 720 / 720 1200 / 1200 Output: Urine 600 / 600 1400 / 1400 2100 / 2100 Chest Tube Drainage 0 / 0 #2 Mid-Axillary Chest 0 / 0 Other: Date of Last Bowel Movement 05/12/18 05/12/18 05/13/18 # Bowel Movements 0 Narrative: GENERAL: This is a well-nourished, well-developed patient, in no apparent distress. CARDIOVASCULAR: Regular rate and rhythm without murmurs, gallops, or rubs. RESPIRATORY: Right-sided expiratory wheeze with some crackles Right chest wallchest tube in place No air leak GASTROINTESTINAL: Abdomen soft, non-tender, nondistended. Normal active bowel sounds MUSCULOSKELETAL: Extremities without clubbing, cyanosis, or edema. NEURO: Alert & Oriented x4 to person, place, time, situation. Moves all ext x4 Assessment and Plan - Plan IMPRESSION: Right PTX COPD Nicotine use H/O AAA repair Chest wall pain PLAN: Chest tubes to water seal CXR in AM Supplement 02 Percocet for pain
--- NOTE | 2018-05-14 20:27 | P.PN ---
Subjective Interval history: not seen Physical Exam Vital signs: Vital Signs 05/13/18 23:57 05/14/18 00:00 05/14/18 04:00 Temperature 97.6 F 98.0 F Pulse Rate 71 85 68 Respiratory Rate 17 18 Blood Pressure 167/83 H 158/76 H Pulse Oximetry 99 97 05/14/18 08:00 05/14/18 12:00 05/14/18 15:31 Temperature 97.6 F 98.3 F Pulse Rate 64 83 83 Respiratory Rate 18 19 19 Blood Pressure 146/71 H 131/58 L Pulse Oximetry 95 98 05/14/18 16:00 Temperature 97.6 F Pulse Rate 79 Respiratory Rate 18 Blood Pressure 125/57 L Pulse Oximetry 95 Intake & Output 05/14/18 05/14/18 05/15/18 06:59 18:59 06:59 Intake Total 720 / 720 1200 / 1200 Output Total 1400 / 1400 2100 / 2100 Balance -680 / -680 -900 / -900 Intake: Oral 720 / 720 1200 / 1200 Output: Urine 1400 / 1400 2100 / 2100 Chest Tube Drainage 0 / 0 #2 Mid-Axillary Chest 0 / 0 Other: Date of Last Bowel Movement 05/12/18 05/13/18 # Bowel Movements 0 Results - Labs CBC & Chem 7: 05/14/18 05:05 05/14/18 05:35 Laboratory Results - last 24 hr 05/14/18 05/14/18 05/14/18 05:05 05:35 05:35 WBC 15.4 H RBC 4.20 L Hgb 13.4 Hct 39.9 MCV 94.9 MCH 32.0 MCHC 33.7 RDW 14.4 Plt Count 324 MPV 8.5 Prelim Diff (Auto) Slide review pending Neut % (Auto) 86.5 H Lymph % (Auto) 7.8 L [place] % (Auto) 5.6 Eos % (Auto) 0.0 Baso % (Auto) 0.1 Neut # (Auto) 13.3 H Lymph # (Auto) 1.2 [place] # (Auto) 0.9 Eos # (Auto) 0.0 Baso # (Auto) 0.0 WBC Differential . Diff Scan Auto diff confirmed Differential Comment . Sodium Potassium Chloride Carbon Dioxide Anion Gap BUN Creatinine Estimated GFR Random Glucose Hemoglobin A1c 6.8 H Calcium Phosphorus Magnesium Total Bilirubin AST ALT Alkaline Phosphatase Total Protein Albumin TSH Free T4 0.76 05/14/18 05:35 WBC RBC Hgb Hct MCV MCH MCHC RDW Plt Count MPV Prelim Diff (Auto) Neut % (Auto) Lymph % (Auto) [place] % (Auto) Eos % (Auto) Baso % (Auto) Neut # (Auto) Lymph # (Auto) [place] # (Auto) Eos # (Auto) Baso # (Auto) WBC Differential Diff Scan Differential Comment Sodium 143 Potassium 4.7 Chloride 108 H Carbon Dioxide 24.2 Anion Gap 11 BUN 33 H Creatinine 1.16 Estimated GFR 63 L Random Glucose 291 H Hemoglobin A1c Calcium 8.5 Phosphorus 2.6 Magnesium 2.4 Total Bilirubin 0.3 AST 79 H ALT 179 H Alkaline Phosphatase 69 Total Protein 6.4 Albumin 3.1 L TSH 0.212 L Free T4 - Imaging Impressions Chest X-Ray 05/14/18 00:00 CONCLUSION: 1. Right chest tube with a tiny apical pneumothorax. 2. Very small right pleural effusion not significantly changed. 3. No significant change left base consolidation. 4. Persistent chest wall emphysema. Chest X-Ray 05/14/18 00:00 CONCLUSION: Right-sided chest tube remains in place with no significant pneumothorax. No significant changes compared to the prior study. - Procedures Chest tube on the right Assessment and Plan - Plan 1. Recurrent right-sided pneumothorax likely secondary to ruptured bleb secondary to underlying undiagnosed COPD with continued hypoxemia -Large right tension pneumothorax status post right-sided chest tube, management per pulmonary. On water seal -Acute hypoxemic respiratory failure -Acute COPD exacerbation scheduled DuoNeb treatments -Levaquin Encourage incentive spirometry use 2. Leukocytosis likely due to steroids 3. New onset DM A1c 6.8. Diabetic education. Monitor FS with SSC 4. Elevated AST and ALT. Med related ? Asymptomatic. Monitor DVT prophylaxis-Bilateral lower extremity SCDs. Heparin 5000 units subcu every 8 hours
--- NOTE | 2018-05-15 05:40 | XR ---
EXAM DATE: 05/15/2018 4:03 AM EDT AGE/SEX: 62 years / Male INDICATIONS: Shortness of breath. CLINICAL DATA: This is the patient's subsequent encounter. Patient reports that signs and symptoms h ave been present for 1 week and indicates a pain score of 1/10. MEDICAL/SURGICAL HISTORY: Aneurysm, abdominal. . Abdominal aortic aneurysm repair. Right chest tube COMPARISON: [facility] [place], CHEST 1V SINGLE AP, 05/14/2018. . FINDINGS: Single AP view of the chest. Subcutaneous emphysema again seen on the right. Right-sided chest tube r emains in place. There is evidence of a small right apical pneumothorax measuring 1 cm. Lungs are hanna ar. Cardiomediastinal silhouette unchanged. CONCLUSION: 1. Small right apical pneumothorax now seen. 2. Right-sided chest tube remains in place. Electronically signed by: Raimundo Barragan MD 05/15/2018 5:39 AM EDT
[2018-05-15] MEDS: Heparin - SQ 10,000 UNITS/ML Vial SQ SCH ×3 (05:53→22:05)
[2018-05-15] MEDS: MethylPREDNISolone Sod Succinate Inj 125 MG/2 ML Vial IV.PUSH SCH ×2 (05:53→13:50)
[2018-05-15 07:58] LABS: Alanine Aminotransferase 171 U/L (12-78)
[2018-05-15 08:00] LABS: Alkaline Phosphatase 70 U/L (45-117); Total Protein 6.6 g/dL (6.4-8.2)
[2018-05-15 08:01] LABS: Albumin 3.1 g/dL (3.4-5.0); Anion Gap 12 meq/L (5-15); Blood Urea Nitrogen 40 mg/dL (7-18); Calcium 9.2 mg/dL (8.5-10.1); Carbon Dioxide 23.7 meq/L (21.0-32.0); Chloride 103 meq/L (98-107); Glomerular Filtration Rate 56 mL/min (>89); Glucose,Random 310 mg/dL (74-106); Sodium 139 meq/L (136-145)
[2018-05-15 08:09] LABS: Aspartate Aminotransferase 40 U/L (15-37); Potassium 4.9 meq/L (3.5-5.1)
[2018-05-15] MEDS: levoFLOXacin 750 MG Tablet PO SCH (09:41)
[2018-05-15] MEDS: Budesonide-Formoterol 80/4.5 MCG 6.9 GM Inhaler INH SCH ×2 (09:41→20:36)
[2018-05-15] MEDS: guaiFENesin 600 MG ER Tablet PO SCH ×2 (09:41→20:35)
--- NOTE | 2018-05-15 17:17 | P.PN ---
Subjective Interval history: Follow-up pneumothorax. Denies chest pain and shortness of breath still on nasal cannula. Physical Exam Vital signs: Vital Signs 05/14/18 20:00 05/14/18 20:41 05/14/18 23:00 Temperature 98.6 F Pulse Rate 98 H 79 Respiratory Rate 18 18 20 Blood Pressure 151/76 H Pulse Oximetry 96 05/15/18 00:00 05/15/18 04:00 05/15/18 08:00 Temperature 98.2 F 97.8 F 97.4 F L Pulse Rate 73 65 67 Respiratory Rate 18 18 12 Blood Pressure 152/67 H 149/67 H 152/77 H Pulse Oximetry 95 98 96 05/15/18 08:58 05/15/18 12:00 05/15/18 13:23 Temperature 98.0 F Pulse Rate 85 92 H 73 Respiratory Rate 17 12 14 Blood Pressure 149/74 H Pulse Oximetry 97 95 Intake & Output 05/14/18 05/15/18 05/15/18 18:59 06:59 18:59 Intake Total 1200 / 1200 640 / 640 Output Total 2100 / 2100 1525 / 1525 Balance -900 / -900 -885 / -885 Intake: Oral 1200 / 1200 640 / 640 Output: Urine 2100 / 2100 1525 / 1525 Other: Date of Last Bowel Movement 05/13/18 05/13/18 Narrative: GENERAL: This is a well-nourished, well-developed patient, in no apparent distress. Skin is warm no lesions CARDIOVASCULAR: Regular rate and rhythm without murmurs, gallops, or rubs. RESPIRATORY: Equal breath sounds right chest tube in place GASTROINTESTINAL: Abdomen soft, non-tender, nondistended. Normal active bowel sounds MUSCULOSKELETAL: Extremities without clubbing, cyanosis, or edema. NEURO: Alert & Oriented x4 to person, place, time, situation. Moves all ext x4 Results - Labs CBC & Chem 7: 05/14/18 05:05 05/15/18 06:37 Laboratory Results - last 24 hr 05/15/18 06:37 Sodium 139 Potassium 4.9 Chloride 103 Carbon Dioxide 23.7 Anion Gap 12 BUN 40 H Creatinine 1.30 Estimated GFR 56 L Random Glucose 310 H Calcium 9.2 Total Bilirubin 0.5 AST 40 H ALT 171 H Alkaline Phosphatase 70 Total Protein 6.6 Albumin 3.1 L - Imaging Impressions Chest X-Ray 05/15/18 18:40 CONCLUSION: 1. Small right apical pneumothorax now seen. 2. Right-sided chest tube remains in place. - Procedures Chest tube on the right Assessment and Plan - Plan 1. Recurrent right-sided pneumothorax likely secondary to ruptured bleb secondary to underlying undiagnosed COPD with continued hypoxemia -Large right tension pneumothorax status post right-sided chest tube, management per pulmonary. Repeat chest x-ray shows small right pneumothorax however patient is asymptomatic per pulmonary continue waterseal and repeat chest x-ray in the morning. If patient develops chest pain or increasing shortness of breath or increasing pneumothorax may need to be back on suction 2. Acute hypoxemic respiratory failure. Improving wean oxygen to keep saturations at least 92% 3. Acute COPD exacerbation scheduled DuoNeb treatments -Levaquin, Encourage incentive spirometry use 4. Leukocytosis likely due to steroids 5. New onset DM A1c 6.8. Diabetic education. Monitor FS with SSC 6. Elevated AST and ALT. Med related ? Asymptomatic. Monitor check Tylenol level and hepatitis profile DVT prophylaxis-Bilateral lower extremity SCDs. Heparin 5000 units subcu every 8 hours Discharge Planning: Discharge when chest tube removed
[2018-05-15] MEDS: MethylPREDNISolone Sod Succinate Inj 40 MG/ML Vial IV.PUSH SCH (20:35)
[2018-05-16] MEDS: Heparin - SQ 10,000 UNITS/ML Vial SQ SCH ×3 (06:30→21:29)
--- NOTE | 2018-05-16 09:25 | XR ---
EXAM DATE: 05/16/2018 9:22 AM EDT AGE/SEX: 62 years / Male INDICATIONS: Evaluate pneumothorax CLINICAL DATA: This is the patient's subsequent encounter. Patient reports that signs and symptoms h ave been present for 1 week and indicates a pain score of 0/10. MEDICAL/SURGICAL HISTORY: . Aneurysm, abdominal. . Abdominal aortic aneurysm repair . . Right chest tube COMPARISON: [facility] – [place], CHEST 1V SINGLE AP, 05/15/2018. . FINDINGS: A single AP view of the chest demonstrates bibasilar densities. Diminished lung volumes. Subcutaneous emphysema on the right. Right-sided chest tube without pneumothorax. The cardiomediastinal contours are unremarkable. Osseous structures are intact. CONCLUSION: Right-sided chest tube without pneumothorax. Electronically signed by: Mariano Lawrence MD 05/16/2018 9:23 AM EDT
[2018-05-16] MEDS: guaiFENesin 600 MG ER Tablet PO SCH ×2 (09:30→20:39)
[2018-05-16] MEDS: levoFLOXacin 750 MG Tablet PO SCH (09:30)
[2018-05-16] MEDS: MethylPREDNISolone Sod Succinate Inj 40 MG/ML Vial IV.PUSH SCH ×2 (09:30→20:39)
[2018-05-16] MEDS: Budesonide-Formoterol 80/4.5 MCG 6.9 GM Inhaler INH SCH ×2 (09:31→20:41)
[2018-05-16 12:58] LABS: Total Protein 6.4 g/dL (6.4-8.2)
[2018-05-16 13:54] LABS: Hepatitis A IgM Antibody Nonreactive (Nonreactive); Hepatitits B Surface Antigen Nonreactive (Nonreactive)
--- NOTE | 2018-05-16 15:12 | P.PN ---
Subjective Interval history: Follow-up pneumothorax. Denies chest pain and shortness of breath. Asking if he has COPD Physical Exam Vital signs: Vital Signs 05/15/18 16:00 05/15/18 20:00 05/15/18 20:47 Temperature 97.7 F 97.6 F Pulse Rate 79 78 Respiratory Rate 12 18 Blood Pressure 151/78 H 155/74 H Pulse Oximetry 97 96 95 05/16/18 00:00 05/16/18 04:00 05/16/18 08:00 Temperature 97.8 F 97.2 F L 97.4 F L Pulse Rate 83 98 H 73 Respiratory Rate 18 18 12 Blood Pressure 140/69 148/69 H 153/78 H Pulse Oximetry 95 95 96 05/16/18 08:24 05/16/18 12:00 Temperature 97.6 F Pulse Rate 80 Respiratory Rate 12 Blood Pressure 158/73 H Pulse Oximetry 97 94 L Intake & Output 05/15/18 05/16/18 05/16/18 18:59 06:59 18:59 Intake Total 1500 / 1500 Output Total 3500 / 3500 Balance -1999 / -1999 Weight 118 kg Intake: Oral 1500 / 1500 Output: Urine 3500 / 3500 Other: # Voids 5 Date of Last Bowel Movement 05/13/18 05/13/18 05/13/18 # Bowel Movements 1 Narrative: GENERAL: This is a well-nourished, well-developed patient, in no apparent distress. Skin is warm no lesions CARDIOVASCULAR: Regular rate and rhythm RESPIRATORY: Equal breath sounds right chest tube in place GASTROINTESTINAL: Abdomen soft, non-tender, nondistended. Normal active bowel sounds MUSCULOSKELETAL: Extremities without clubbing, cyanosis, or edema. NEURO: Alert & Oriented x4 to person, place, time, situation. Moves all ext x4 Results - Labs CBC & Chem 7: 05/14/18 05:05 05/15/18 06:37 Laboratory Results - last 24 hr 05/14/18 05/15/18 05/16/18 05:35 06:37 11:50 Sodium 139 Potassium 4.9 Chloride 103 Carbon Dioxide 23.7 Anion Gap 12 BUN 40 H Creatinine 1.30 Estimated GFR 56 L Random Glucose 310 H Calcium 9.2 Total Bilirubin 0.5 Direct Bilirubin Indirect Bilirubin AST 40 H ALT 171 H Alkaline Phosphatase 70 Total Protein 6.6 Albumin 3.1 L Acetaminophen Less than 2.0 L Less than 2.0 L Hepatitis A IgM Ab Nonreactive Hep Bs Antigen Nonreactive Hep B Core IgM Ab Nonreactive Hep C IgG Ab Nonreactive 05/16/18 11:50 Sodium Potassium Chloride Carbon Dioxide Anion Gap BUN Creatinine Estimated GFR Random Glucose Calcium Total Bilirubin 0.6 Direct Bilirubin 0.1 Indirect Bilirubin 0.5 AST 60 H ALT 198 H Alkaline Phosphatase 74 Total Protein 6.4 Albumin 3.0 L Acetaminophen Hepatitis A IgM Ab Hep Bs Antigen Hep B Core IgM Ab Hep C IgG Ab - Imaging Impressions Chest X-Ray 05/16/18 09:00 CONCLUSION: Right-sided chest tube without pneumothorax. Assessment and Plan - Assessment (1) Pneumothorax, acute Code(s): J93.83 - Other pneumothorax Status: Acute (2) COPD (chronic obstructive pulmonary disease) Code(s): J44.9 - Chronic obstructive pulmonary disease, unspecified Status: Chronic - Plan 1. Recurrent right-sided pneumothorax likely secondary to ruptured bleb secondary to underlying undiagnosed COPD with continued hypoxemia -Large right tension pneumothorax status post right-sided chest tube, management per pulmonary. Repeat chest x-ray shows no pneumothorax per pulmonary continue waterseal and repeat chest x-ray in the morning. If patient develops chest pain or increasing shortness of breath or increasing pneumothorax may need to be back on suction 2. Acute hypoxemic respiratory failure. Improving wean oxygen to keep saturations at least 92% 3. Acute COPD exacerbation scheduled DuoNeb treatments -Levaquin, Encourage incentive spirometry use 4. Leukocytosis likely due to steroids 5. New onset DM A1c 6.8. Diabetic education. Monitor FS with SSC 6. Elevated AST and ALT. Med related ? Tylenol level not elevated. Hepatitis profile negative. Asymptomatic. Monitor DVT prophylaxis-Bilateral lower extremity SCDs. Heparin 5000 units subcu every 8 hours Discharge Planning: Discharge when chest tube removed
[2018-05-17] MEDS: Heparin - SQ 10,000 UNITS/ML Vial SQ SCH ×3 (05:44→21:02)
--- NOTE | 2018-05-17 09:39 | XR ---
EXAM DATE: 05/17/2018 9:37 AM EDT AGE/SEX: 62 years / Male INDICATIONS: Shortness of breath. CLINICAL DATA: This is the patient's subsequent encounter. Patient reports that signs and symptoms h ave been present for 1 week and indicates a pain score of 0/10. MEDICAL/SURGICAL HISTORY: Aneurysm, abdominal. Abdominal aortic aneurysm repair. COMPARISON: [facility], CHEST 1V SINGLE AP, 05/16/2018. . FINDINGS: Large bore chest tube in place on the left moderate subcutis emphysema. Moderate cardiomegaly without significant failure. Minimal parenchymal changes left base. CONCLUSION: Moderate compensated cardiomegaly Large bore chest tube in place in the left with decreasing interstitial edema. Electronically signed by: Ben Monroy MD 05/17/2018 9:38 AM EDT
[2018-05-17] MEDS: guaiFENesin 600 MG ER Tablet PO SCH ×2 (10:08→21:02)
[2018-05-17] MEDS: levoFLOXacin 750 MG Tablet PO SCH (10:08)
[2018-05-17] MEDS: MethylPREDNISolone Sod Succinate Inj 40 MG/ML Vial IV.PUSH SCH (10:10)
--- NOTE | 2018-05-17 10:33 | P.PN ---
Subjective Interval history: Follow-up pneumothorax. No new complaints. Chest tube currently on waterseal repeat chest x-ray shows no pneumothorax awaiting pulmonary evaluation. Physical Exam Vital signs: Vital Signs 05/16/18 12:00 05/16/18 16:00 05/16/18 16:06 Temperature 97.6 F 97.7 F Pulse Rate 80 72 76 Respiratory Rate 12 14 16 Blood Pressure 158/73 H 158/80 H Pulse Oximetry 94 L 95 05/16/18 20:00 05/16/18 20:07 05/17/18 00:00 Temperature 97.8 F 97.8 F Pulse Rate 93 H 81 77 Respiratory Rate 18 18 18 Blood Pressure 165/90 H 146/69 H Pulse Oximetry 96 94 L 95 05/17/18 04:00 05/17/18 07:52 05/17/18 08:00 Temperature 98.1 F 97.6 F Pulse Rate 82 91 H 95 H Respiratory Rate 18 16 20 Blood Pressure 136/76 142/80 H Pulse Oximetry 93 L 94 L 94 L Intake & Output 05/16/18 05/17/18 05/17/18 18:59 06:59 18:59 Intake Total 900 / 900 Output Total 40 / 40 1300 / 1300 Balance -40 / -40 -400 / -400 Weight 118.2 kg Intake: Oral 900 / 900 Output: Urine 1300 / 1300 Chest Tube Drainage 40 / 40 #2 Mid-Axillary Chest 40 / 40 Other: # Voids 6 Date of Last Bowel Movement 05/13/18 # Bowel Movements 1 Narrative: GENERAL: This is a well-nourished, well-developed patient, in no apparent distress. Skin is warm no lesions CARDIOVASCULAR: Regular rate and rhythm RESPIRATORY: Equal breath sounds right chest tube in place on waterseal GASTROINTESTINAL: Abdomen soft, non-tender, nondistended. Normal active bowel sounds MUSCULOSKELETAL: Extremities without clubbing, cyanosis, or edema. NEURO: Alert & Oriented x4 to person, place, time, situation. Moves all ext x4 Results - Labs CBC & Chem 7: 05/14/18 05:05 05/15/18 06:37 Laboratory Results - last 24 hr 05/15/18 05/16/18 05/16/18 06:37 11:50 11:50 Total Bilirubin 0.6 Direct Bilirubin 0.1 Indirect Bilirubin 0.5 AST 60 H ALT 198 H Alkaline Phosphatase 74 Total Protein 6.4 Albumin 3.0 L Acetaminophen Less than 2.0 L Hepatitis A IgM Ab Nonreactive Hep Bs Antigen Nonreactive Hep B Core IgM Ab Nonreactive Hep C IgG Ab Nonreactive - Imaging Impressions Chest X-Ray 05/17/18 09:00 CONCLUSION: Moderate compensated cardiomegaly Large bore chest tube in place in the left with decreasing interstitial edema. Assessment and Plan - Assessment (1) Pneumothorax, acute Code(s): J93.83 - Other pneumothorax Status: Acute (2) COPD (chronic obstructive pulmonary disease) Code(s): J44.9 - Chronic obstructive pulmonary disease, unspecified Status: Chronic - Plan 1. Recurrent right-sided pneumothorax likely secondary to ruptured bleb secondary to underlying undiagnosed COPD with continued hypoxemia -Large right tension pneumothorax status post right-sided chest tube, management per pulmonary. Repeat chest x-ray shows no pneumothorax on waterseal. Anticipate to be clamped today and repeat chest x-ray in the morning. If patient develops chest pain or increasing shortness of breath or increasing pneumothorax may need to be back on suction 2. Acute hypoxemic respiratory failure. Improving wean oxygen to keep saturations at least 92% 3. Acute COPD exacerbation scheduled DuoNeb treatments. Improving -Levaquin, Encourage incentive spirometry use 4. Leukocytosis likely due to steroids 5. New onset DM A1c 6.8. Diabetic education. Monitor FS with SSC 6. Elevated AST and ALT. Med related ? Tylenol level not elevated. Hepatitis profile negative. Asymptomatic. Monitor DVT prophylaxis-Bilateral lower extremity SCDs. Heparin 5000 units subcu every 8 hours Discharge Planning: Discharge when chest tube removed
--- NOTE | 2018-05-17 16:48 | P.PNPL ---
Subjective Interval history: 62 YOWM with PTX Chest tube to water seal CXR no ptx Denies sob or CP Up in chair Physical Exam Vital signs: Vital Signs 05/16/18 20:00 05/16/18 20:07 05/17/18 00:00 Temperature 97.8 F 97.8 F Pulse Rate 93 H 81 77 Respiratory Rate 18 18 18 Blood Pressure 165/90 H 146/69 H Pulse Oximetry 96 94 L 95 05/17/18 04:00 05/17/18 07:52 05/17/18 08:00 Temperature 98.1 F 97.6 F Pulse Rate 82 91 H 95 H Respiratory Rate 18 16 20 Blood Pressure 136/76 142/80 H Pulse Oximetry 93 L 94 L 94 L 05/17/18 11:40 05/17/18 12:01 Temperature 99.1 F Pulse Rate 105 H 81 Respiratory Rate 20 16 Blood Pressure 130/82 Pulse Oximetry 94 L Intake & Output 05/16/18 05/17/18 05/17/18 18:59 06:59 18:59 Intake Total 900 / 900 Output Total 40 / 40 1300 / 1300 Balance -40 / -40 -400 / -400 Weight 118.2 kg Intake: Oral 900 / 900 Output: Urine 1300 / 1300 Chest Tube Drainage 40 / 40 #2 Mid-Axillary Chest 40 / 40 Other: # Voids 6 Date of Last Bowel Movement 05/13/18 # Bowel Movements 1 Narrative: GENERAL: This is a well-nourished, well-developed patient, in no apparent distress. Skin is warm no lesions CARDIOVASCULAR: Regular rate and rhythm RESPIRATORY: Equal breath sounds right chest tube in place on waterseal Small SQ Emphtsema GASTROINTESTINAL: Abdomen soft, non-tender, nondistended. Normal active bowel sounds MUSCULOSKELETAL: Extremities without clubbing, cyanosis, or edema. NEURO: Alert & Oriented x4 to person, place, time, situation. Moves all ext x4 Assessment and Plan - Plan IMPRESSION: Right PTX COPD Nicotine use H/O AAA repair Chest wall pain PLAN: Chest tubes to water seal CXR in AM Supplement 02 Percocet for pain Advised pt to call RN if sob or CP DW RN, if SOB or CP, get stat CXR and Unclamp chest tube
[2018-05-17] MEDS: Morphine Inj 4 MG/ML Vial IV.PUSH PRN (16:52)
[2018-05-17] MEDS: predniSONE 20 MG Tablet PO SCH (21:02)
[2018-05-17] MEDS: Budesonide-Formoterol 80/4.5 MCG 6.9 GM Inhaler INH SCH ×2 (22:03)
[2018-05-18 02:16] LABS: Creatine Kinase 76 U/L (39-308)
--- NOTE | 2018-05-18 02:45 | XR ---
EXAM DATE: 05/18/2018 2:28 AM EDT AGE/SEX: 62 years / Male INDICATIONS: Chest Pain. CLINICAL DATA: This is the patient's subsequent encounter. Patient reports that signs and symptoms h ave been present for 1 week and indicates a pain score of 3/10. MEDICAL/SURGICAL HISTORY: . Aneurysm, abdominal . Abdominal aortic aneurysm repair. COMPARISON: [facility] – [place], CHEST EXPIRATION ONLY, 05/17/2018. . FINDINGS: Stable large bore left-sided chest tube in place. Interval development of large left-sided pneumothor ax with slight mediastinal shift to the left Worsening chest wall subcutaneous emphysema. Persistent bilateral lower lobe airspace disease. Cardiomediastinal contours are stable. Remainder of exam is un changed. CONCLUSION: 1. Stable right-sided chest tube with interval development of large right-sided pneumothorax with sl ight leftward mediastinal shift. Findings were personally discussed with the patient's nurse, Reg, at the time of this dictation. Electronically signed by: Joel Auguste MD 05/18/2018 2:44 AM EDT
[2018-05-18] MEDS: Heparin - SQ 10,000 UNITS/ML Vial SQ SCH ×3 (05:24→22:08)
--- NOTE | 2018-05-18 06:39 | XR ---
EXAM DATE: 05/18/2018 6:32 AM EDT AGE/SEX: 62 years / Male INDICATIONS: Evaluate pneumothorax. CLINICAL DATA: This is the patient's initial encounter. Patient reports that signs and symptoms have been present for 1 day and indicates a pain score of 2/10. MEDICAL/SURGICAL HISTORY: None. Chest tube, right. COMPARISON: [facility] – [place], CHEST 1V SINGLE AP, 05/18/2018. . FINDINGS: There is a stable right-sided chest tube with significant interval improvement in right-sided pneumot horax. Stable bibasilar airspace disease. Cardiomediastinal contours are stable. Redemonstration of d iffuse subcutaneous emphysema. CONCLUSION: 1. Stable right-sided chest tube with near interval resolution of right-sided pneumothorax. 2. Persistent moderate subcutaneous emphysema. 3. Stable bilateral lower lung zone airspace disease. Electronically signed by: Joel Auguste MD 05/18/2018 6:38 AM EDT
[2018-05-18] MEDS: levoFLOXacin 750 MG Tablet PO SCH (08:56)
[2018-05-18] MEDS: guaiFENesin 600 MG ER Tablet PO SCH ×2 (08:56→20:37)
[2018-05-18] MEDS: predniSONE 20 MG Tablet PO SCH (08:56)
[2018-05-18] MEDS: Budesonide-Formoterol 80/4.5 MCG 6.9 GM Inhaler INH SCH ×2 (08:56→20:37)
--- NOTE | 2018-05-18 10:37 | P.PN ---
Subjective Interval history: Follow-up pneumothorax. Events noted increase right sided pneumothorax when CT was clamped. CT was then placed on suction with resolved pneumothorax on follow -up x-ray. At this time patient has no complaints. Discussed with pulmonary will consult CTS and obtain chest CT. Physical Exam Vital signs: Vital Signs 05/17/18 11:40 05/17/18 12:01 05/17/18 16:59 Temperature 99.1 F 98.9 F Pulse Rate 105 H 81 86 Respiratory Rate 20 16 20 Blood Pressure 130/82 136/74 Pulse Oximetry 94 L 95 05/17/18 19:49 05/17/18 20:00 05/18/18 00:00 Temperature 98.4 F 98 F Pulse Rate 100 H 90 75 Respiratory Rate 16 18 20 Blood Pressure 145/75 H 178/82 H Pulse Oximetry 93 L 91 L 93 L 05/18/18 04:00 05/18/18 07:42 05/18/18 08:00 Temperature 98.4 F 98.1 F Pulse Rate 73 75 78 Respiratory Rate 20 14 17 Blood Pressure 133/71 140/79 Pulse Oximetry 95 93 L 94 L Intake & Output 05/17/18 05/18/18 05/18/18 18:59 06:59 18:59 Intake Total 480 / 480 Output Total 600 / 600 Balance -120 / -120 Intake: Oral 480 / 480 Output: Urine 600 / 600 Other: Date of Last Bowel Movement 05/13/18 05/17/18 Narrative: GENERAL: This is a well-nourished, well-developed patient, in no apparent distress. Skin is warm no lesions CARDIOVASCULAR: Regular rate and rhythm RESPIRATORY: Equal breath sounds right chest tube in place on suction Small SQ Emphtsema GASTROINTESTINAL: Abdomen soft, non-tender, nondistended. Normal active bowel sounds MUSCULOSKELETAL: Extremities without clubbing, cyanosis, or edema. NEURO: Alert & Oriented x4 to person, place, time, situation. Moves all ext x4 Results - Labs CBC & Chem 7: 05/14/18 05:05 05/15/18 06:37 Laboratory Results - last 24 hr 05/18/18 01:41 Total Creatine Kinase 76 Troponin I Less than 0.02 L - Imaging Impressions Chest X-Ray 05/18/18 06:00 CONCLUSION: 1. Stable right-sided chest tube with near interval resolution of right-sided pneumothorax. 2. Persistent moderate subcutaneous emphysema. 3. Stable bilateral lower lung zone airspace disease. Chest X-Ray 05/18/18 16:49 CONCLUSION: 1. Stable right-sided chest tube with interval development of large right- sided pneumothorax with slight leftward mediastinal shift. Findings were personally discussed with the patient's nurse, Reg, at the time of this dictation. Assessment and Plan - Assessment (1) Pneumothorax, acute Code(s): J93.83 - Other pneumothorax Status: Acute (2) COPD (chronic obstructive pulmonary disease) Code(s): J44.9 - Chronic obstructive pulmonary disease, unspecified Status: Chronic - Plan 1. Recurrent right-sided pneumothorax likely secondary to ruptured bleb secondary to underlying undiagnosed COPD with continued hypoxemia -Large right tension pneumothorax with clamped CT status post right-sided chest tube, management per pulmonary. Repeat chest x-ray shows no pneumothorax on suction. At this time patient has no complaints. Discussed with pulmonary will consult CTS and obtain chest CT. 2. Acute hypoxemic respiratory failure. Improving wean oxygen to keep saturations at least 92% 3. Acute COPD exacerbation scheduled DuoNeb treatments. Improving -Levaquin, Encourage incentive spirometry use 4. Leukocytosis likely due to steroids 5. New onset DM A1c 6.8. Diabetic education. Monitor FS with SSC 6. Elevated AST and ALT. Med related ? Tylenol level not elevated. Hepatitis profile negative. Asymptomatic. Monitor DVT prophylaxis-Bilateral lower extremity SCDs. Heparin 5000 units subcu every 8 hours Discharge Planning: Discharge when chest tube removed
[2018-05-18 11:08] LABS: Creatine Kinase 66 U/L (39-308)
--- NOTE | 2018-05-18 11:54 | CT ---
EXAM DATE: 05/18/2018 11:47 AM EDT AGE/SEX: 62 years / Male INDICATIONS: PNU EMO THORAX/CHEST TUBE CLINICAL DATA: This is the patient's subsequent encounter. Patient reports that signs and symptoms h ave been present for 2 weeks and indicates a pain score of 5/10. MEDICAL/SURGICAL HISTORY: None. None. RADIATION DOSE: 19.39 CTDI (mGy) COMPARISON: No prior exams available for comparison. TECHNIQUE: Multiple contiguous axial images were obtained through the chest without contrast. Image s were obtained in suspended respiration using multiple row detector helical technique. Using automa roula exposure control and adjustment of the mA and/or kV according to patient size, radiation dose was kept as low as reasonably achievable to obtain optimal diagnostic quality images. DICOM format imag e data is available electronically for review and comparison. FINDINGS: There is severe subcutaneous emphysema present extending into the base of the neck as well as along b oth lateral chest aguayo. There is a right-sided pneumothorax without tension. Chest tube is in place laterally and could be further advanced into the lung apex. There is subsegmental atelectasis in the both bases. A small pneumomediastinum is present. Examination of the mediastinum demonstrates no abnormally enlarged lymph nodes by CT criteria. No axi llary or hilar abnormalities are identified. Coronary artery calcifications are not present. The adre nal glands are unremarkable. There is decreased density of the liver with respect to the spleen comp atible with fatty infiltration. The spleen is unremarkable. CONCLUSION: Severe subcutaneous emphysema with right apical pneumothorax without tension. Chest tube is present but could be further advanced into the right apex. Electronically signed by: Chris Phan MD 05/18/2018 11:53 AM EDT
--- NOTE | 2018-05-18 14:39 | ECG ---
Date Performed: 05/18/2018 Time Performed: 13:19:21 PTAGE: 62 years EKG: Sinus rhythm WITH OCCASIONAL VENTRICULAR PREMATURE COMPLEXES LEFT ANTERIOR FASCICULAR BLOCK POSSIBLE ANTERIOR ERNESTO CARDIAL INFARCTION , OF INDETERMINATE AGE ABNORMAL ECG Compared to prior electrocardiogram, Premature ventricular contractions are now present . PREVIOUS TRACING : 05/18/2018 08.19 DOCTOR: Berto Baker Interpretating Date/Time 05/18/2018 14:38:22
--- NOTE | 2018-05-18 16:54 | ECG ---
Date Performed: 05/18/2018 Time Performed: 01:35:30 PTAGE: 62 years EKG: Sinus rhythm Left axis deviation Possible inferior infarct - age undetermined Abnormal ECG PREVIOUS TRACING : 05/07/2018 11.05 Since the previous tracing, no significant change noted DOCTOR: Casandra Lucas Interpretating Date/Time 05/18/2018 16:53:52
--- NOTE | 2018-05-18 16:54 | ECG ---
Date Performed: 05/18/2018 Time Performed: 08:19:10 PTAGE: 62 years EKG: Sinus rhythm MARKED LEFT AXIS DEVIATION POSSIBLE ANTERIOR MYOCARDIAL INFARCTION , PROBABLY OLD ABNORMAL ECG PREVIOUS TRACING : 05/18/2018 01.35 Since the previous tracing, no significant change noted DOCTOR: Casandra Lucas Interpretating Date/Time 05/18/2018 16:54:07
--- NOTE | 2018-05-18 18:51 | P.PNPL ---
Subjective Interval history: 62 YOWM with PTX Chest tube to Suction Developed large ptx after clamping, resolved when CT put to suction CXR no ptx Denies sob or CP Up in chair Physical Exam Vital signs: Vital Signs 05/17/18 19:49 05/17/18 20:00 05/18/18 00:00 Temperature 98.4 F 98 F Pulse Rate 100 H 90 75 Respiratory Rate 16 18 20 Blood Pressure 145/75 H 178/82 H Pulse Oximetry 93 L 91 L 93 L 05/18/18 04:00 05/18/18 07:42 05/18/18 08:00 Temperature 98.4 F 98.1 F Pulse Rate 73 75 78 Respiratory Rate 20 14 17 Blood Pressure 133/71 140/79 Pulse Oximetry 95 93 L 94 L 05/18/18 09:25 05/18/18 12:00 05/18/18 13:25 Temperature 97.2 F L Pulse Rate 98 H 99 H Respiratory Rate 18 18 14 Blood Pressure 118/75 Pulse Oximetry 94 L 05/18/18 16:00 Temperature 97.8 F Pulse Rate 96 H Respiratory Rate 17 Blood Pressure 134/70 Pulse Oximetry 95 Intake & Output 05/17/18 05/18/18 05/18/18 18:59 06:59 18:59 Intake Total 480 / 480 1560 / 1560 Output Total 600 / 600 1350 / 1350 Balance -120 / -120 210 / 210 Intake: Oral 480 / 480 1560 / 1560 Output: Urine 600 / 600 1300 / 1300 Chest Tube Drainage 50 / 50 #2 Mid-Axillary Chest 50 / 50 Other: Date of Last Bowel Movement 05/13/18 05/17/18 # Bowel Movements 0 Narrative: GENERAL: This is a well-nourished, well-developed patient, in no apparent distress. Skin is warm no lesions CARDIOVASCULAR: Regular rate and rhythm RESPIRATORY: Equal breath sounds right chest tube in place on suction Small SQ Emphtsema GASTROINTESTINAL: Abdomen soft, non-tender, nondistended. Normal active bowel sounds MUSCULOSKELETAL: Extremities without clubbing, cyanosis, or edema. NEURO: Alert & Oriented x4 to person, place, time, situation. Moves all ext x4 Assessment and Plan - Plan IMPRESSION: Right PTX COPD Nicotine use H/O AAA repair Chest wall pain PLAN: Chest tubes to Suction Supplement 02 Percocet for pain CTS consulted DW Pt
[2018-05-19] MEDS: Morphine Inj 4 MG/ML Vial IV.PUSH PRN ×3 (04:00→11:07)
[2018-05-19] MEDS: Heparin - SQ 10,000 UNITS/ML Vial SQ SCH ×3 (05:06→21:12)
[2018-05-19] MEDS: guaiFENesin 600 MG ER Tablet PO SCH ×2 (09:53→21:10)
[2018-05-19] MEDS: predniSONE 20 MG Tablet PO SCH (09:53)
[2018-05-19] MEDS: Budesonide-Formoterol 80/4.5 MCG 6.9 GM Inhaler INH SCH ×2 (09:54→21:10)
--- NOTE | 2018-05-19 11:34 | XR ---
EXAM DATE: 05/19/2018 11:27 AM EDT AGE/SEX: 62 years / Male INDICATIONS: Cough and shortness of breath. CLINICAL DATA: This is the patient's subsequent encounter. Patient reports that signs and symptoms h ave been present for 3 weeks and indicates a pain score of 3/10. MEDICAL/SURGICAL HISTORY: None. . Chest tube, right. COMPARISON: [facility] – [place], CHEST 1V SINGLE AP, 05/18/2018. . FINDINGS: Large bore chest tube in place on the right. Tube has been pulled back slightly. Stable right subcutaneous emphysema. Minimal bibasilar parenchymal changes Mild prominence the cardiac silhouette. CONCLUSION: No pneumothorax with chest tube on the right. Stable subcutaneous emphysema. Chest tube has been pulled back slightly. Electronically signed by: Ben Monroy MD 05/19/2018 11:32 AM EDT
--- NOTE | 2018-05-19 12:45 | P.PN ---
Subjective Interval history: Follow-up pneumothorax. He has no new complaints. Awaiting CTS evaluation Physical Exam Vital signs: Vital Signs 05/18/18 12:55 05/18/18 13:25 05/18/18 16:00 Temperature 97.8 F Pulse Rate 99 H 96 H Respiratory Rate 18 14 17 Blood Pressure 134/70 Pulse Oximetry 95 05/18/18 16:30 05/18/18 20:00 05/18/18 20:15 Temperature 98.4 F Pulse Rate 94 H Respiratory Rate 18 17 Blood Pressure 153/85 H Pulse Oximetry 98 93 L 05/19/18 00:20 05/19/18 05:25 05/19/18 08:00 Temperature 98.6 F 98.2 F 98.3 F Pulse Rate 113 H 110 H 114 H Respiratory Rate 18 19 22 Blood Pressure 120/59 L 133/94 H 114/67 Pulse Oximetry 94 L 93 L 94 L Intake & Output 05/18/18 05/19/18 05/19/18 18:59 06:59 18:59 Intake Total 1560 / 1560 720 / 720 Output Total 1350 / 1350 1100 / 1100 150 / 150 Balance 210 / 210 -380 / -380 -150 / -150 Intake: Oral 1560 / 1560 720 / 720 Output: Urine 1300 / 1300 1100 / 1100 Chest Tube Drainage 50 / 50 150 / 150 #2 Mid-Axillary Chest 50 / 50 150 / 150 Other: Date of Last Bowel Movement 05/17/18 05/17/18 # Bowel Movements 0 0 Narrative: GENERAL: This is a well-nourished, well-developed patient, in no apparent distress. Skin is warm no lesions CARDIOVASCULAR: Regular rate and rhythm RESPIRATORY: Equal breath sounds right chest tube in place on suction Small SQ Emphysema. B/l expiratory GASTROINTESTINAL: Abdomen soft, non-tender, nondistended. Normal active bowel sounds MUSCULOSKELETAL: Extremities without clubbing, cyanosis, or edema. NEURO: Alert & Oriented x4 to person, place, time, situation. Moves all ext x4 Results - Labs CBC & Chem 7: 05/14/18 05:05 05/15/18 06:37 - Imaging Impressions Chest X-Ray 05/19/18 10:57 CONCLUSION: No pneumothorax with chest tube on the right. Stable subcutaneous emphysema. Chest tube has been pulled back slightly. Assessment and Plan - Assessment (1) Pneumothorax, acute Code(s): J93.83 - Other pneumothorax Status: Acute (2) COPD (chronic obstructive pulmonary disease) Code(s): J44.9 - Chronic obstructive pulmonary disease, unspecified Status: Chronic - Plan 1. Recurrent right-sided pneumothorax likely secondary to ruptured bleb secondary to underlying undiagnosed COPD with continued hypoxemia -Large right tension pneumothorax with clamped CT status post right-sided chest tube, management per pulmonary. Repeat chest x-ray shows no pneumothorax on suction. At this time patient has no complaints. Discussed with pulmonary, awaiting CTS consult. CT chest results noted 2. Acute hypoxemic respiratory failure. Improving wean oxygen to keep saturations at least 92% 3. Acute COPD exacerbation scheduled DuoNeb treatments. Improving continue scheduled nebulizations status post Levaquin 4. Leukocytosis likely due to steroids 5. New onset DM A1c 6.8. Diabetic education. Monitor FS with SSC 6. Elevated AST and ALT. Med related ? Tylenol level not elevated. Hepatitis profile negative. Asymptomatic. Monitor DVT prophylaxis-Bilateral lower extremity SCDs. Heparin 5000 units subcu every 8 hours Discharge Planning: Discharge when chest tube removed
--- NOTE | 2018-05-19 18:27 | P.PNPL ---
Subjective Interval history: 62 YOWM with PTX Chest tube to Suction CXR no ptx Denies sob or CP Up in chair Physical Exam Vital signs: Vital Signs 05/18/18 20:00 05/18/18 20:15 05/19/18 00:20 Temperature 98.4 F 98.6 F Pulse Rate 94 H 113 H Respiratory Rate 17 18 Blood Pressure 153/85 H 120/59 L Pulse Oximetry 98 93 L 94 L 05/19/18 05:25 05/19/18 08:00 05/19/18 12:00 Temperature 98.2 F 98.3 F 97.7 F Pulse Rate 110 H 114 H 112 H Respiratory Rate 19 22 18 Blood Pressure 133/94 H 114/67 99/59 L Pulse Oximetry 93 L 94 L 90 L 05/19/18 16:00 Temperature 98.1 F Pulse Rate 98 H Respiratory Rate 17 Blood Pressure 111/61 Pulse Oximetry 90 L Intake & Output 05/18/18 05/19/18 05/19/18 18:59 06:59 18:59 Intake Total 1560 / 1560 720 / 720 Output Total 1350 / 1350 1100 / 1100 150 / 150 Balance 210 / 210 -380 / -380 -150 / -150 Intake: Oral 1560 / 1560 720 / 720 Output: Urine 1300 / 1300 1100 / 1100 Chest Tube Drainage 50 / 50 150 / 150 #2 Mid-Axillary Chest 50 / 50 150 / 150 Other: Date of Last Bowel Movement 05/17/18 05/17/18 # Bowel Movements 0 0 Narrative: GENERAL: This is a well-nourished, well-developed patient, in no apparent distress. Skin is warm no lesions CARDIOVASCULAR: Regular rate and rhythm RESPIRATORY: Equal breath sounds right chest tube in place on suction Small SQ Emphysema. B/l expiratory GASTROINTESTINAL: Abdomen soft, non-tender, nondistended. Normal active bowel sounds MUSCULOSKELETAL: Extremities without clubbing, cyanosis, or edema. NEURO: Alert & Oriented x4 to person, place, time, situation. Moves all ext x4 Assessment and Plan - Plan IMPRESSION: Right PTX COPD Nicotine use H/O AAA repair Chest wall pain PLAN: Chest tubes to Suction Supplement 02 Percocet for pain CTS consulted DW Pt Awaiting CTS input.
[2018-05-20] MEDS: Heparin - SQ 10,000 UNITS/ML Vial SQ SCH ×3 (06:26→21:09)
--- NOTE | 2018-05-20 07:35 | MB ---
cc: Kaushal Barroso MD DATE: 05/19/2018 HISTORY OF PRESENT ILLNESS: This is a 62-year-old male, chronic COPD, tobacco abuse, presented to the emergency room with recent upper respiratory symptoms, severe coughing spell, which was worse and severe shortness of breath and right-sided chest discomfort. The ED showed a spontaneous pneumothorax on the right, a right pigtail catheter was placed with expansion of the pneumothorax. Patient then developed a post large tension pneumothorax. He was seen in the ICU. An emergent right-sided pigtail catheter with immediate relief of symptoms was obtained by critical care. O2 saturation improved. He was placed on medication for COPD exacerbation and also Levaquin for chronic obstructive pulmonary disease exacerbation. Apparently, they have attempted to clamp his chest tube unsuccessfully and pneumothorax recurred. We were consulted for possible video-assisted thoracoscopy, bleb resection. PAST MEDICAL HISTORY: Tobacco abuse, COPD. PAST SURGICAL HISTORY: Include history of aortic abdominal aneurysm repair in 2008 in [facility]. ALLERGIES: THE PATIENT HAS NO KNOWN ALLERGIES. MEDICATIONS: He takes an aspirin at home. Has not seen a physician in a couple of years. His prior physician was Dr. Geraldo Jesus. FAMILY HISTORY: Noncontributory. SOCIAL HISTORY: Again, the patient lives with his significant other. He is with 4 children. Has been smoking for about 40 years. REVIEW OF SYSTEMS: As above in the HPI, other 12 systems unremarkable. PHYSICAL EXAMINATION: VITAL SIGNS: Blood pressure 114/60, heart rate of 110, temperature max 98.3. GENERAL: The patient is awake, alert, no acute distress. HEENT: Head is normocephalic, atraumatic. Pupils equal and reactive. 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 HEART: Sounds S1, S2, slightly tachycardic. LUNGS: He has got some coarse breath sounds with some faint expiratory wheeze. Right-sided chest tube to 40 cm of suction. No air leak. ABDOMEN: Soft, nontender. No masses or organomegaly. EXTREMITIES: No cyanosis, clubbing, or edema. LABORATORY DATA: Shows hemoglobin 13, hematocrit of 39. White cell count of 15, platelet count of 324. Sodium 139, potassium 4.9, BUN of 40, creatinine 1.30, AST 60, ALT to 198. INR 1.0. IMPRESSION: This is 62-year-old with spontaneous pneumothorax with a CT showing blebs in the right apical area. He has severe subcutaneous emphysema in the base of the neck also, both chest side with some improvement. He failed a clamping of his tube. At this time, he has reexpanded his right lung. He is to continue the suction at 40 cm and slowly reduce that suction as tolerated. If the patient again is unable to keep his right lung expanded, evaluation for video-assisted thoracoscopy, bleb resection as per Dr. Taylor العلي, who is following for Dr. Barroso. Dictated by GABBY Zheng MD MONO Gill/HERNAN , 02:13 PM , 02:39 PM
[2018-05-20] MEDS: predniSONE 20 MG Tablet PO SCH (09:59)
[2018-05-20] MEDS: guaiFENesin 600 MG ER Tablet PO SCH ×2 (09:59→21:09)
[2018-05-20] MEDS: Budesonide-Formoterol 80/4.5 MCG 6.9 GM Inhaler INH SCH ×2 (10:18→21:10)
--- NOTE | 2018-05-20 11:23 | P.PN ---
Subjective Interval history: Follow-up pneumothorax with difficulty sleeping because of coughing. Denies increasing shortness of breath or chest pain. Discussed with pulmonary recommendations of cardiothoracic surgery Physical Exam Vital signs: Vital Signs 05/19/18 12:00 05/19/18 16:00 05/19/18 17:20 Temperature 97.7 F 98.1 F Pulse Rate 112 H 98 H 96 H Respiratory Rate 18 17 24 Blood Pressure 99/59 L 111/61 Pulse Oximetry 90 L 90 L 05/19/18 21:35 05/19/18 21:49 05/20/18 00:40 Temperature 98.4 F 97.9 F Pulse Rate 109 H 111 H 91 H Respiratory Rate 17 19 18 Blood Pressure 109/64 134/72 Pulse Oximetry 92 L 94 L 92 L 05/20/18 04:00 05/20/18 10:25 Temperature 98.4 F Pulse Rate 96 H 94 H Respiratory Rate 18 17 Blood Pressure 160/89 H Pulse Oximetry 95 Intake & Output 05/19/18 05/20/18 05/20/18 18:59 06:59 18:59 Intake Total 720 / 720 Output Total 150 / 150 145 / 145 Balance -150 / -150 575 / 575 Intake: Oral 720 / 720 Output: Chest Tube Drainage 150 / 150 145 / 145 #2 Mid-Axillary Chest 150 / 150 145 / 145 Other: # Voids 2 Date of Last Bowel Movement 05/17/18 # Bowel Movements 0 Narrative: GENERAL: This is a well-nourished, well-developed patient, in no apparent distress. Skin is warm no lesions CARDIOVASCULAR: Regular rate and rhythm RESPIRATORY: Equal breath sounds right chest tube in place on suction Small SQ Emphysema. No wheezes today GASTROINTESTINAL: Abdomen soft, non-tender, nondistended. Normal active bowel sounds MUSCULOSKELETAL: Extremities without clubbing, cyanosis, or edema. NEURO: Alert & Oriented x4 to person, place, time, situation. Moves all ext x4 Results - Labs CBC & Chem 7: 05/14/18 05:05 05/15/18 06:37 - Imaging Impressions Chest X-Ray 05/19/18 10:57 CONCLUSION: No pneumothorax with chest tube on the right. Stable subcutaneous emphysema. Chest tube has been pulled back slightly. Assessment and Plan - Assessment (1) Pneumothorax, acute Code(s): J93.83 - Other pneumothorax Status: Acute (2) COPD (chronic obstructive pulmonary disease) Code(s): J44.9 - Chronic obstructive pulmonary disease, unspecified Status: Chronic - Plan 1. Recurrent right-sided pneumothorax likely secondary to ruptured bleb secondary to underlying undiagnosed COPD with continued hypoxemia -Large right tension pneumothorax with clamped CT status post right-sided chest tube, management per pulmonary. Repeat chest x-ray shows no pneumothorax on suction. At this time patient has no complaints. Discussed with pulmonary recommendations CTS repeat weaning process chest tube. If he fails again he may need VATS with bleb resection 2. Acute hypoxemic respiratory failure. Improving wean oxygen to keep saturations at least 92% 3. Acute COPD exacerbation scheduled DuoNeb treatments. Improving continue scheduled nebulizations status post Levaquin 4. Leukocytosis likely due to steroids 5. New onset DM A1c 6.8. Diabetic education. Monitor FS with SSC 6. Elevated AST and ALT. Med related ? Tylenol level not elevated. Hepatitis profile negative. Asymptomatic. Monitor DVT prophylaxis-Bilateral lower extremity SCDs. Heparin 5000 units subcu every 8 hours Discharge Planning: Discharge when chest tube removed
--- NOTE | 2018-05-20 16:35 | XR ---
EXAM DATE: 05/20/2018 4:28 PM EDT AGE/SEX: 62 years / Male INDICATIONS: R/o pneumothorax, short of breath. CLINICAL DATA: This is the patient's initial encounter. Patient reports that signs and symptoms have been present for 1 day and indicates a pain score of 0/10. MEDICAL/SURGICAL HISTORY: None. . chest tube COMPARISON: [facility], CHEST 1V SINGLE AP, 05/19/2018. . FINDINGS: There is a right-sided chest tube. A pneumothorax is not seen. There is a right pleural effusion. The re is increased density at the right base. The left lung is grossly clear. The heart size is mild enl arged. There are subjacent emphysema seen in the right chest. CONCLUSION: Right chest tube with a persistent moderate right pleural effusion. A pneumothorax is not seen. Increased density at the right base likely related to some accompanying atelectasis or consolidation. Cardiomegaly. Electronically signed by: Chaparro Blount MD 05/20/2018 4:34 PM EDT
--- NOTE | 2018-05-20 16:40 | P.PNCA ---
- Note Subjective/Hospital Course: No complaints. Right chest tube is clamped. Objective: Vital Signs - 24 hr 05/19/18 17:20 05/19/18 21:35 05/19/18 21:49 Temperature 98.4 F Pulse Rate 96 H 109 H 111 H Respiratory Rate 24 17 19 Blood Pressure 109/64 Pulse Oximetry 92 L 94 L 05/20/18 00:40 05/20/18 04:00 05/20/18 08:00 Temperature 97.9 F 98.4 F 98.2 F Pulse Rate 91 H 96 H 101 H Respiratory Rate 18 18 20 Blood Pressure 134/72 160/89 H 140/93 H Pulse Oximetry 92 L 95 92 L 05/20/18 10:25 05/20/18 12:00 Temperature 98 F Pulse Rate 94 H 86 Respiratory Rate 17 20 Blood Pressure 130/71 Pulse Oximetry 92 L Result Diagrams: 05/14/18 05:05 05/15/18 06:37 Imaging: Chest CT 05/18/18 00:00 CONCLUSION: Severe subcutaneous emphysema with right apical pneumothorax without tension. Chest tube is present but could be further advanced into the right apex. Chest X-Ray 05/20/18 16:05 CONCLUSION: Right chest tube with a persistent moderate right pleural effusion. A pneumothorax is not seen. Increased density at the right base likely related to some accompanying atelectasis or consolidation. Cardiomegaly. Cardiovascular: RRR Pulmonary: CTA CT: 145ml cloudy yellow fluid/12 hrs, no air leak - Plan (1) Pneumothorax, acute Plan: Chest tube has been clamped by Dr. Sanders. Will review CXR tomorrow. He may have an issue with pleural fluid, but I do not see an air leak. If his CXR is stable, agree with pulling tube.
[2018-05-20] MEDS: Morphine Inj 4 MG/ML Vial IV.PUSH PRN (17:27)
--- NOTE | 2018-05-20 18:13 | P.PNPL ---
Subjective Interval history: 62 YOWM with PTX Chest tube to Clamped CXR no ptx Denies sob or CP Up in chair Seen by If no ptx, plans to dc chest tube. Physical Exam Vital signs: Vital Signs 05/19/18 21:35 05/19/18 21:49 05/20/18 00:40 Temperature 98.4 F 97.9 F Pulse Rate 109 H 111 H 91 H Respiratory Rate 17 19 18 Blood Pressure 109/64 134/72 Pulse Oximetry 92 L 94 L 92 L 05/20/18 04:00 05/20/18 08:00 05/20/18 10:25 Temperature 98.4 F 98.2 F Pulse Rate 96 H 101 H 94 H Respiratory Rate 18 20 17 Blood Pressure 160/89 H 140/93 H Pulse Oximetry 95 92 L 05/20/18 12:00 05/20/18 16:46 Temperature 98 F Pulse Rate 86 77 Respiratory Rate 20 18 Blood Pressure 130/71 Pulse Oximetry 92 L 90 L Intake & Output 05/19/18 05/20/18 05/20/18 18:59 06:59 18:59 Intake Total 720 / 720 Output Total 150 / 150 145 / 145 Balance -150 / -150 575 / 575 Intake: Oral 720 / 720 Output: Chest Tube Drainage 150 / 150 145 / 145 #2 Mid-Axillary Chest 150 / 150 145 / 145 Other: # Voids 2 Date of Last Bowel Movement 05/17/18 05/17/18 # Bowel Movements 0 GENERAL: WBWN WM,NAD SKIN: Warm and dry. HEAD: Normocephalic. EYES: No scleral icterus. No injection or drainage. NECK: Supple, trachea midline. No JVD or lymphadenopathy. CARDIOVASCULAR: Regular rate and rhythm without murmurs, gallops, or rubs. RESPIRATORY: Breath sounds equal bilaterally. No accessory muscle use. Rt chest tube clamped GASTROINTESTINAL: Abdomen soft, non-tender, nondistended. MUSCULOSKELETAL: No cyanosis, or edema. BACK: Nontender without obvious deformity. No CVA tenderness. Assessment and Plan - Plan IMPRESSION: Right PTX COPD Nicotine use H/O AAA repair Chest wall pain PLAN: Chest tubes clamped Supplement 02 Percocet for pain DW Pt Ian CTS. CXR in AM DW pt and RN Unclamp chest tube and stat cxr if sob or CP
[2018-05-21] MEDS: Heparin - SQ 10,000 UNITS/ML Vial SQ SCH ×3 (06:54→21:38)
--- NOTE | 2018-05-21 06:54 | XR ---
EXAM DATE: 05/21/2018 6:49 AM EDT AGE/SEX: 62 years / Male INDICATIONS: Follow up pneumothorax. CLINICAL DATA: This is the patient's subsequent encounter. Patient reports that signs and symptoms h ave been present for 2 weeks and indicates a pain score of 3/10. MEDICAL/SURGICAL HISTORY: None. . Abdominal aortic aneurysm repair. Right sided chest tube COMPARISON: [facility] [place]ST 1V SINGLE AP, 05/20/2018. . FINDINGS: A single AP view of the chest demonstrates bibasilar densities with right basilar pleural-parenchymal density. Right-sided chest tube again seen. No pneumothorax. Subcutaneous emphysema on the right. Ri ght scapular fracture.. The cardiomediastinal contours are unremarkable. CONCLUSION: Stable chest. Electronically signed by: Mariano Lawrence MD 05/21/2018 6:53 AM EDT
[2018-05-21] MEDS: predniSONE 20 MG Tablet PO SCH (08:32)
[2018-05-21] MEDS: guaiFENesin 600 MG ER Tablet PO SCH ×2 (08:32→20:16)
--- NOTE | 2018-05-21 11:36 | P.PN ---
Subjective Interval history: Follow-up pneumothorax. Patient is doing well CT clamped since yesterday. Physical Exam Vital signs: Vital Signs 05/20/18 12:00 05/20/18 16:00 05/20/18 16:46 Temperature 98 F 98.6 F Pulse Rate 86 100 H 77 Respiratory Rate 20 16 18 Blood Pressure 130/71 129/66 Pulse Oximetry 92 L 100 90 L 05/20/18 19:24 05/20/18 19:48 05/20/18 23:54 Temperature 98.0 F 97.9 F Pulse Rate 78 95 H 84 Respiratory Rate 16 19 18 Blood Pressure 125/70 118/66 Pulse Oximetry 91 L 94 L 05/21/18 04:25 05/21/18 04:55 05/21/18 08:00 Temperature 97.5 F L 98.1 F Pulse Rate 76 87 90 Respiratory Rate 18 18 18 Blood Pressure 112/57 L 127/72 Pulse Oximetry 92 L 92 L 05/21/18 11:17 Temperature Pulse Rate 90 Respiratory Rate 17 Blood Pressure Pulse Oximetry Intake & Output 05/20/18 05/21/18 05/21/18 18:59 06:59 18:59 Intake Total 360 / 360 Output Total 100 / 100 300 / 300 Balance -100 / -100 60 / 60 Weight 118.2 kg Intake: Oral 360 / 360 Output: Urine 300 / 300 Chest Tube Drainage 100 / 100 #2 Mid-Axillary Chest 100 / 100 Other: # Voids 4 Date of Last Bowel Movement 05/17/18 05/21/18 # Bowel Movements 0 Narrative: GENERAL: This is a well-nourished, well-developed patient, in no apparent distress. Skin is warm no lesions CARDIOVASCULAR: Regular rate and rhythm RESPIRATORY: Equal breath sounds clamped right chest tube Small SQ Emphysema. Rhonchi noted GASTROINTESTINAL: Abdomen soft, non-tender, nondistended. Normal active bowel sounds MUSCULOSKELETAL: Extremities without clubbing, cyanosis, or edema. NEURO: Alert & Oriented x4 to person, place, time, situation. Moves all ext x4 Results - Labs CBC & Chem 7: 05/14/18 05:05 05/15/18 06:37 - Imaging Impressions Chest X-Ray 05/20/18 16:05 CONCLUSION: Right chest tube with a persistent moderate right pleural effusion. A pneumothorax is not seen. Increased density at the right base likely related to some accompanying atelectasis or consolidation. Cardiomegaly. Chest X-Ray 05/21/18 06:30 CONCLUSION: Stable chest. - Procedures chest tube right Assessment and Plan - Assessment (1) Pneumothorax, acute Code(s): J93.83 - Other pneumothorax Status: Acute (2) COPD (chronic obstructive pulmonary disease) Code(s): J44.9 - Chronic obstructive pulmonary disease, unspecified Status: Chronic - Plan 1. Recurrent right-sided pneumothorax likely secondary to ruptured bleb secondary to underlying undiagnosed COPD with continued hypoxemia. Improved chest tube clamped yesterday repeat chest x-ray 2 with no pneumothorax. Patient has right pleural effusion. Anticipate removal of chest tube today. Will defer to pulmonary regarding pleural effusion management. Oxygen walk test. 2. Acute hypoxemic respiratory failure. Improving wean oxygen to keep saturations at least 92% 3. Acute COPD exacerbation scheduled DuoNeb treatments. Improving continue scheduled nebulizations and tapering steroids status post Levaquin 4. Leukocytosis likely due to steroids 5. New onset DM A1c 6.8. Diabetic education. Monitor FS with SSC 6. Elevated AST and ALT. Med related ? Tylenol level not elevated. Hepatitis profile negative. Asymptomatic. Monitor DVT prophylaxis-Bilateral lower extremity SCDs. Heparin 5000 units subcu every 8 hours Discharge Planning: Discharge when chest tube removed. Aware not to take plane rides
[2018-05-21] MEDS: Budesonide-Formoterol 80/4.5 MCG 6.9 GM Inhaler INH SCH ×2 (16:19→20:16)
--- NOTE | 2018-05-21 18:17 | P.PNPL ---
Subjective Interval history: 62 YOWM with PTX Chest tube to Clamped CXR no ptx Denies sob or CP On unclamping chest tube, it drains pus like material Physical Exam Vital signs: Vital Signs 05/20/18 19:24 05/20/18 19:48 05/20/18 23:54 Temperature 98.0 F 97.9 F Pulse Rate 78 95 H 84 Respiratory Rate 16 19 18 Blood Pressure 125/70 118/66 Pulse Oximetry 91 L 94 L Pulse Oximetry [Resting on Room Air] Pulse Oximetry [Resting with Oxygen] 05/21/18 04:25 05/21/18 04:55 05/21/18 08:00 Temperature 97.5 F L 98.1 F Pulse Rate 76 87 90 Respiratory Rate 18 18 18 Blood Pressure 112/57 L 127/72 Pulse Oximetry 92 L 92 L Pulse Oximetry [Resting on Room Air] Pulse Oximetry [Resting with Oxygen] 05/21/18 11:17 05/21/18 12:00 05/21/18 13:21 Temperature 97.8 F Pulse Rate 90 Respiratory Rate 17 Blood Pressure 118/72 Pulse Oximetry 90 L Pulse Oximetry [Resting on Room Air] 85 L Pulse Oximetry [Resting with Oxygen] 93 L 05/21/18 15:51 Temperature Pulse Rate 70 Respiratory Rate 18 Blood Pressure Pulse Oximetry 93 L Pulse Oximetry [Resting on Room Air] Pulse Oximetry [Resting with Oxygen] Intake & Output 05/20/18 05/21/18 05/21/18 18:59 06:59 18:59 Intake Total 360 / 360 Output Total 100 / 100 300 / 300 Balance -100 / -100 60 / 60 Weight 118.2 kg Intake: Oral 360 / 360 Output: Urine 300 / 300 Chest Tube Drainage 100 / 100 #2 Mid-Axillary Chest 100 / 100 Other: # Voids 4 Date of Last Bowel Movement 05/17/18 05/21/18 # Bowel Movements 0 GENERAL: WBWN Male,NAD, non toxic SKIN: Warm and dry. HEAD: Normocephalic. EYES: No scleral icterus. No injection or drainage. NECK: Supple, trachea midline. No JVD or lymphadenopathy. CARDIOVASCULAR: Regular rate and rhythm without murmurs, gallops, or rubs. RESPIRATORY: Breath sounds equal bilaterally. No accessory muscle use. Chest tube in place GASTROINTESTINAL: Abdomen soft, non-tender, nondistended. MUSCULOSKELETAL: No cyanosis, or edema. BACK: Nontender without obvious deformity. No CVA tenderness. Narrative: GENERAL: This is a well-nourished, well-developed patient, in no apparent distress. Skin is warm no lesions CARDIOVASCULAR: Regular rate and rhythm RESPIRATORY: Equal breath sounds clamped right chest tube Small SQ Emphysema. Rhonchi noted GASTROINTESTINAL: Abdomen soft, non-tender, nondistended. Normal active bowel sounds MUSCULOSKELETAL: Extremities without clubbing, cyanosis, or edema. NEURO: Alert & Oriented x4 to person, place, time, situation. Moves all ext x4 Assessment and Plan - Plan IMPRESSION: Right PTX COPD Nicotine use H/O AAA repair Chest wall pain Pleural effusion, ? Empyema PLAN: Chest tubes back to suction Pl fluid for studies Start Abx Supplement 02 Percocet for pain DW Pt
[2018-05-21] MEDS: Piperacil/Tazo 3.375 GM Premix 50 ML IV.SIG SCH (20:16)
[2018-05-21 20:17] LABS: Lymphocytes,Pleural Fluid 1 %; Neutrophils,Pleural Fluid 94 %
[2018-05-21 20:18] LABS: Monocytes,Pleural Fluid 4 %
[2018-05-21 20:19] LABS: RBC,Pleural Fluid 10750 /mm3 (0-0)
[2018-05-22] MEDS: Morphine Inj 4 MG/ML Vial IV.PUSH PRN (00:04)
[2018-05-22] MEDS: Piperacil/Tazo 3.375 GM Premix 50 ML IV.SIG SCH ×3 (01:26→16:33)
[2018-05-22] MEDS: Heparin - SQ 10,000 UNITS/ML Vial SQ SCH ×3 (06:10→22:48)
[2018-05-22 07:33] LABS: Baso # (Auto) 0.2 th/mm3 (0.0-0.2); Baso % (Auto) 0.9 % (0.0-2.0); Eos # (Auto) 0.1 th/mm3 (0.0-0.4); Eos % (Auto) 0.5 % (0.0-4.0); Hematocrit 40.7 % (39.0-51.0); Hemoglobin 13.7 gm/dL (13.0-17.0); Lymph # (Auto) 2.1 th/mm3 (1.0-4.8); Lymph % (Auto) 11.9 % (9.0-44.0); Mean Corpuscular HGB Conc 33.7 % (32.0-36.0); Mean Corpuscular Volume 94.9 fL (80.0-100.0); Mean Platelet Volume 8.8 fL (7.0-11.0); Mono # (Auto) 1.1 th/mm3 (0.0-0.9); Mono % (Auto) 6.4 % (0.0-8.0); Neut # (Auto) 14.2 th/mm3 (1.8-7.7); Neut % (Auto) 80.3 % (16.0-70.0); Platelet Count 245 th/mm3 (150-450); Red Blood Count 4.29 mil/mm3 (4.50-5.90); Red Cell Distribution Width 14.1 % (11.6-17.2); White Blood Count 17.7 th/mm3 (4.0-11.0)
[2018-05-22 07:43] LABS: Alanine Aminotransferase 121 U/L (12-78); Albumin 2.2 g/dL (3.4-5.0); Anion Gap 12 meq/L (5-15); Aspartate Aminotransferase 53 U/L (15-37); Blood Urea Nitrogen 28 mg/dL (7-18); Carbon Dioxide 26.1 meq/L (21.0-32.0); Chloride 99 meq/L (98-107); Glomerular Filtration Rate 83 mL/min (>89); Glucose,Random 181 mg/dL (74-106); Magnesium 2.2 mg/dL (1.5-2.5); Potassium 4.5 meq/L (3.5-5.1); Sodium 137 meq/L (136-145)
[2018-05-22 07:46] LABS: Alkaline Phosphatase 82 U/L (45-117); Total Protein 6.7 g/dL (6.4-8.2)
[2018-05-22 08:16] LABS: Lactate Dehydrogenase 255 U/L (87-241)
[2018-05-22] MEDS: guaiFENesin 600 MG ER Tablet PO SCH ×2 (08:26→22:48)
[2018-05-22] MEDS: predniSONE 20 MG Tablet PO SCH (08:26)
[2018-05-22] MEDS: Budesonide-Formoterol 80/4.5 MCG 6.9 GM Inhaler INH SCH ×2 (08:28→23:04)
[2018-05-22] MEDS ORDERED: Dextrose 50% in Water 50 ML Vial IV.PUSH PRN (11:18)
--- NOTE | 2018-05-22 11:21 | P.PNIM ---
Subjective Interval history: The patient said that he had a lot of pain at times, especially when he coughed. He wanted to know what antibiotics he was on. He said he had a hard time sleeping. Discussed with nursing. Physical Exam Vital signs: Vital Signs 05/21/18 12:00 05/21/18 13:21 05/21/18 15:51 Temperature 97.8 F Pulse Rate 70 Respiratory Rate 18 Blood Pressure 118/72 Pulse Oximetry 90 L 93 L Pulse Oximetry [Resting on Room Air] 85 L Pulse Oximetry [Resting with Oxygen] 93 L 05/21/18 19:55 05/21/18 20:00 05/21/18 20:38 Temperature 98.1 F Pulse Rate 105 H 96 H 72 Respiratory Rate 17 16 Blood Pressure 143/70 H Pulse Oximetry 93 L Pulse Oximetry [Resting on Room Air] Pulse Oximetry [Resting with Oxygen] 05/22/18 00:00 05/22/18 04:01 05/22/18 08:00 Temperature 97.9 F 97.9 F Pulse Rate 78 83 95 H Respiratory Rate 16 18 Blood Pressure 156/85 H 134/70 Pulse Oximetry 98 94 L Pulse Oximetry [Resting on Room Air] Pulse Oximetry [Resting with Oxygen] 05/22/18 08:54 Temperature Pulse Rate 104 H Respiratory Rate 18 Blood Pressure Pulse Oximetry 93 L Pulse Oximetry [Resting on Room Air] Pulse Oximetry [Resting with Oxygen] Intake & Output 05/21/18 05/22/18 05/22/18 18:59 06:59 18:59 Intake Total 700 / 700 50 / 50 Output Total 0 / 0 910 / 910 Balance 0 / 0 -210 / -210 50 / 50 Weight 111.7 kg Intake: IV 100 / 100 50 / 50 Zosyn 3.375 GM Premix 50 ML @ 100 / 100 50 / 50 100 mls/hr IV.SIG Q6H SERGIO Rx#: [id number] Oral 600 / 600 Output: Urine 900 / 900 Chest Tube Drainage 0 / 0 10 / 10 #2 Mid-Axillary Chest 0 / 0 10 10 Other: # Voids 200 Date of Last Bowel Movement 05/21/18 05/21/18 05/21/18 Narrative: GENERAL: This is a well-nourished, well-developed patient, in no apparent distress CARDIOVASCULAR: Regular rate and rhythm RESPIRATORY: Chest tube on right; Rhonchi noted GASTROINTESTINAL: Abdomen soft, non-tender, nondistended. Normal active bowel sounds MUSCULOSKELETAL: Extremities without clubbing, cyanosis, or edema. NEURO: Alert & Oriented x4 to person, place, time, situation. Moves all ext x4 Results - Labs CBC & Chem 7: 05/22/18 06:34 05/22/18 06:34 Laboratory Results - last 24 hr 05/21/18 05/21/18 05/22/18 17:41 17:41 06:34 WBC 17.7 H RBC 4.29 L Hgb 13.7 Hct 40.7 MCV 94.9 MCH 32.0 MCHC 33.7 RDW 14.1 Plt Count 245 MPV 8.8 Neut % (Auto) 80.3 H Lymph % (Auto) 11.9 [place] % (Auto) 6.4 Eos % (Auto) 0.5 Baso % (Auto) 0.9 Neut # (Auto) 14.2 H Lymph # (Auto) 2.1 [place] # (Auto) 1.1 H Eos # (Auto) 0.1 Baso # (Auto) 0.2 WBC Differential . Differential Comment Auto diff final Sodium Potassium Chloride Carbon Dioxide Anion Gap BUN Creatinine Estimated GFR Random Glucose Calcium Magnesium Total Bilirubin AST ALT Alkaline Phosphatase Lactate Dehydrogenase Total Protein Albumin Pleural pH 6.5 Pleural RBC 01575 H Pleural Nuc Cells 937270 H Pleural Neutrophils 94 Pleural Lymphocytes 1 Pleural Monocytes 4 Pleural Histocytes 1 Pleural Fluid Comment Pleural Total Protein 5.0 Pleural LDH 04552 Pleural Glucose 19 05/22/18 05/22/18 06:34 06:35 WBC RBC Hgb Hct MCV MCH MCHC RDW Plt Count MPV Neut % (Auto) Lymph % (Auto) [place] % (Auto) Eos % (Auto) Baso % (Auto) Neut # (Auto) Lymph # (Auto) [place] # (Auto) Eos # (Auto) Baso # (Auto) WBC Differential Differential Comment Sodium 137 Potassium 4.5 Chloride 99 Carbon Dioxide 26.1 Anion Gap 12 BUN 28 H Creatinine 0.92 Estimated GFR 83 L Random Glucose 181 H Calcium 9.0 Magnesium 2.2 Total Bilirubin 0.9 AST 53 H ALT 121 H Alkaline Phosphatase 82 Lactate Dehydrogenase 255 H Cancelled Total Protein 6.7 Albumin 2.2 L Pleural pH Pleural RBC Pleural Nuc Cells Pleural Neutrophils Pleural Lymphocytes Pleural Monocytes Pleural Histocytes Pleural Fluid Comment Pleural Total Protein Pleural LDH Pleural Glucose Microbiology 05/21/18 17:41 Fluid - Pleural fluid Fungal Smear - Final No fungal elements seen 05/21/18 17:42 Fluid - Pleural fluid Gram Stain - Final - Procedures chest tube right Assessment and Plan - Assessment (1) Pneumothorax, acute Code(s): J93.83 - Other pneumothorax Status: Acute (2) COPD (chronic obstructive pulmonary disease) Code(s): J44.9 - Chronic obstructive pulmonary disease, unspecified Status: Chronic - Plan Recurrent right-sided pneumothorax Likely secondary to ruptured bleb secondary to underlying undiagnosed COPD with continued hypoxemia. Patient has right pleural effusion. When tube unclamped by pulmonology pus started draining so antibiotics were started. -continue IV Zosyn. Add vancomycin. -wean oxygen to keep saturations at least 92% -scheduled DuoNeb treatments. -tapering steroids. -follow up with pulmonology. Pain S/t chest tube. - pain control with a bowel regimen. Leukocytosis Likely s/t steroids. - monitor. New onset DM A1c 6.8%. - Diabetic education. - Monitor FS with SSC. Elevated AST and ALT Med related ? Tylenol level not elevated. Hepatitis profile negative. Asymptomatic. - Monitor. DVT prophylaxis-Bilateral lower extremity SCDs. Heparin 5000 units subcu every 8 hours
[2018-05-22] MEDS ORDERED: Vancomycin Consult Pharmacy 1 EACH OTHER SCH (12:00)
--- NOTE | 2018-05-22 12:18 | P.PNCA ---
- Note Subjective/Hospital Course: No complaints. Right chest tube is clamped. 05/22/18 Patient with copious purulent drainage from right chest tube. No complaints otherwise. Objective: Vital Signs - 24 hr 05/21/18 13:21 05/21/18 15:51 05/21/18 19:55 Temperature Pulse Rate 70 105 H Respiratory Rate 18 Blood Pressure Pulse Oximetry 93 L Pulse Oximetry [Resting on Room Air] 85 L Pulse Oximetry [Resting with Oxygen] 93 L 05/21/18 20:00 05/21/18 20:38 05/22/18 00:00 Temperature 98.1 F 97.9 F Pulse Rate 96 H 72 78 Respiratory Rate 17 16 16 Blood Pressure 143/70 H 156/85 H Pulse Oximetry 93 L 98 Pulse Oximetry [Resting on Room Air] Pulse Oximetry [Resting with Oxygen] 05/22/18 04:01 05/22/18 08:00 05/22/18 08:54 Temperature 97.9 F Pulse Rate 83 95 H 104 H Respiratory Rate 18 18 Blood Pressure 134/70 Pulse Oximetry 94 L 93 L Pulse Oximetry [Resting on Room Air] Pulse Oximetry [Resting with Oxygen] Labs: Laboratory Results - last 12 hr 05/22/18 05/22/18 05/22/18 06:34 06:34 06:35 WBC 17.7 H RBC 4.29 L Hgb 13.7 Hct 40.7 MCV 94.9 MCH 32.0 MCHC 33.7 RDW 14.1 Plt Count 245 MPV 8.8 Neut % (Auto) 80.3 H Lymph % (Auto) 11.9 [place] % (Auto) 6.4 Eos % (Auto) 0.5 Baso % (Auto) 0.9 Neut # (Auto) 14.2 H Lymph # (Auto) 2.1 [place] # (Auto) 1.1 H Eos # (Auto) 0.1 Baso # (Auto) 0.2 WBC Differential . Differential Comment Auto diff final Sodium 137 Potassium 4.5 Chloride 99 Carbon Dioxide 26.1 Anion Gap 12 BUN 28 H Creatinine 0.92 Estimated GFR 83 L POC Glucose Random Glucose 181 H Calcium 9.0 Magnesium 2.2 Total Bilirubin 0.9 AST 53 H ALT 121 H Alkaline Phosphatase 82 Lactate Dehydrogenase 255 H Cancelled Total Protein 6.7 Albumin 2.2 L 05/22/18 11:42 WBC RBC Hgb Hct MCV MCH MCHC RDW Plt Count MPV Neut % (Auto) Lymph % (Auto) [place] % (Auto) Eos % (Auto) Baso % (Auto) Neut # (Auto) Lymph # (Auto) [place] # (Auto) Eos # (Auto) Baso # (Auto) WBC Differential Differential Comment Sodium Potassium Chloride Carbon Dioxide Anion Gap BUN Creatinine Estimated GFR POC Glucose 327 H Random Glucose Calcium Magnesium Total Bilirubin AST ALT Alkaline Phosphatase Lactate Dehydrogenase Total Protein Albumin Result Diagrams: 05/22/18 06:34 05/22/18 06:34 Imaging: Chest CT 05/18/18 00:00 CONCLUSION: Severe subcutaneous emphysema with right apical pneumothorax without tension. Chest tube is present but could be further advanced into the right apex. Chest X-Ray 05/21/18 06:30 CONCLUSION: Stable chest. Pulmonary: decreased BS on right CT: minimal output today - Plan (1) Pneumothorax, acute Plan: Chest tube has been clamped by Dr. Sanders. Will review CXR tomorrow. He may have an issue with pleural fluid, but I do not see an air leak. If his CXR is stable, agree with pulling tube. Patient appears to have an empyema. He appears to have loculated fluid on the right on CXR I offered VATS exploration Thursday, but he is hesitant to have surgery. Chest CT ordered. I will discuss surgery again with him tomorrow if the CT shows loculated fluid.
[2018-05-22] MEDS: Insulin NovoLOG Aspart Correctional Sugar Inj SQ SCH ×3 (13:19→22:50)
--- NOTE | 2018-05-22 13:23 | XR ---
EXAM DATE: 05/22/2018 1:09 PM EDT AGE/SEX: 62 years / Male INDICATIONS: Shortness of breath. Cough. CLINICAL DATA: This is the patient's subsequent encounter. Patient reports that signs and symptoms h ave been present for 2 weeks and indicates a pain score of 4/10. MEDICAL/SURGICAL HISTORY: None. . Abdominal aortic aneurysm repair. Right sided chest tube COMPARISON: C, CHEST 1V SINGLE AP, 05/21/2018. C, [place]ST 1V SINGLE AP[place]2018[place] [facility] [place]18[place]2018. . FINDINGS: AP upright portable view of the chest demonstrates a moderate sized right-sided pleural effusion whic h appears essentially stable to slightly decreased in size as compared to the prior exam. Right-sided apically directed chest tube is present. Previously noted right-sided pneumothorax is not visible to day. Adjacent atelectasis is present. Heart size is normal. Pulmonary vasculature is normal. CONCLUSION: Stable right-sided chest tube. No visible pneumothorax on the current exam. The right-sided pleural e ffusion and adjacent atelectasis appears stable to slightly decreased in amount as compared to the pr ior exam. Electronically signed by: Daniela Villagomez MD 05/22/2018 1:21 PM EDT
--- NOTE | 2018-05-22 15:25 | MB ---
cc: Gurdeep Atkinson MD DATE: 05/22/2018 REQUESTING PHYSICIAN: Dr. Alex Garcia. REASON FOR CONSULTATION: Empyema of the lung. HISTORY OF PRESENT ILLNESS: This is a 62-year-old white male who was admitted to the hospital on 05/09/2018. The patient was noted to have spontaneous pneumothorax of the right lung. He underwent insertion of a pigtail chest tube after admission. He had subsequent x-rays that showed emphysema of the right lung and also persistent pleural effusion. The patient is now draining purulent drainage via the chest tube. Evaluation of the pleural fluid showed 135,000 nucleated cells with 94% neutrophils. Culture of the fluid has grown MRSA. The patient states that he is comfortable except for pain at the chest tube site. Because of the persistent drainage and now purulence, a repeat CAT scan has been ordered for further evaluation. He is afebrile. His white blood cell count is increasing. Today's white count is 17.7. The patient denies chills, fever, nausea, vomiting or shortness of breath. He has occasional cough. He states that he has no other complaints. The patient's blood sugar has been elevated this admission. PAST MEDICAL HISTORY: Abdominal aortic aneurysm repair in 2008. ALLERGIES: NO KNOWN DRUG ALLERGIES. MEDICATIONS: 1. Piperacillin/tazobactam 2. Vancomycin. 3. Percocet 5 every 4 hours p.r.n. 4. Morphine sulfate p.r.n. 5. Subcutaneous heparin. 6. Robitussin. 7. Mucinex. 8. Symbicort. 9. Aspirin. 10. DuoNebs. SOCIAL HISTORY: The patient smokes a pack of cigarettes a week. He has smoked for 40 years. No alcohol. No illicit drugs. FAMILY HISTORY: Noncontributory. REVIEW OF SYSTEMS: All systems have been reviewed and are negative, except for that listed in the history of present illness. PHYSICAL EXAMINATION: GENERAL: This is a well-developed male who is in no acute distress. He is awake and alert and oriented. VITAL SIGNS: Temperature 97.5, blood pressure 127/77, respirations 18, heart rate 81. HEENT: Head is atraumatic. Extraocular movements are grossly intact. Pupils reactive to light. No icterus. No conjunctival erythema. Oropharynx moist mucosa without lesions. NECK: Supple, no adenopathy. LUNGS: Decreased breath sounds on the right. Clear on the left. Chest tube exits the right lung and has purulent drainage. There is drainage around the chest tube and onto the dressing on the chest wall, which is very foul smelling. ABDOMEN: Bowel sounds present, soft, no tenderness appreciated. RECTAL: Not performed. EXTREMITIES: No clubbing, cyanosis or edema. SKIN: No diffuse rash. The skin is warm and moist. NEUROLOGIC: Nonfocal. PSYCHIATRIC: The patient is calm and cooperative. LABORATORY FINDINGS: WBC 17.7, platelets 245, 80% neutrophils, hemoglobin 13.7. Creatinine 1.3, estimated GFR 56, sodium 139, AST 60, ALT 198. IMPRESSION: 1. Right lung empyema. This probably is loculated. Methicillin resistant Staphylococcus aureus positive culture. 2. Leukocytosis secondary to empyema. RECOMMENDATIONS: 1. Continue the vancomycin. 2. Discontinue piperacillin/tazobactam. 3. Add clindamycin, which will give anaerobic coverage as well. 4. Isolation for coverage of MRSA. 5. The patient very likely will need surgical intervention to evacuate the empyema. He will need prolonged antibiotic treatment for this infection going forward. Thank you for this consultation. I will monitor the patient's progress and make further recommendations on followup. MD DANIEL Aviles/JACOB , 03:01 PM , 03:23 PM
[2018-05-22] MEDS: Vancomycin Inj 2,000 MG in Sodium Chlor 0.9% Inj 500 ML IV.SIG SCH (15:48)
--- NOTE | 2018-05-22 16:26 | P.PNPL ---
Subjective Interval history: 62 YOWM with PTX Chest tube to suction Has Purulent material draining Denies sob or CP Ian ID Physical Exam Vital signs: Vital Signs 05/21/18 19:55 05/21/18 20:00 05/21/18 20:38 Temperature 98.1 F Pulse Rate 105 H 96 H 72 Respiratory Rate 17 16 Blood Pressure 143/70 H Pulse Oximetry 93 L 05/22/18 00:00 05/22/18 04:01 05/22/18 08:00 Temperature 97.9 F 97.9 F Pulse Rate 78 83 95 H Respiratory Rate 16 18 Blood Pressure 156/85 H 134/70 Pulse Oximetry 98 94 L 05/22/18 08:54 05/22/18 12:00 05/22/18 12:21 Temperature 97.5 F L Pulse Rate 104 H 81 79 Respiratory Rate 18 19 18 Blood Pressure 127/77 Pulse Oximetry 93 L 91 L 05/22/18 13:19 05/22/18 16:00 Temperature 98.5 F Pulse Rate 83 Respiratory Rate 20 19 Blood Pressure 119/62 Pulse Oximetry 93 L Intake & Output 05/21/18 05/22/18 05/22/18 18:59 06:59 18:59 Intake Total 700 / 700 50 / 50 Output Total 0 / 0 910 / 910 Balance 0 / 0 -210 / -210 50 / 50 Weight 111.7 kg Intake: IV 100 / 100 50 / 50 Zosyn 3.375 GM Premix 50 ML @ 100 / 100 50 / 50 100 mls/hr IV.SIG Q6H SERGIO Rx#: [id number] Oral 600 / 600 Output: Urine 900 / 900 Chest Tube Drainage 0 / 0 10 / 10 #2 Mid-Axillary Chest 0 / 0 10 / 10 Other: # Voids 200 Date of Last Bowel Movement 05/21/18 05/21/18 05/21/18 GENERAL: WBWN Male,NAD SKIN: Warm and dry. HEAD: Normocephalic. EYES: No scleral icterus. No injection or drainage. NECK: Supple, trachea midline. No JVD or lymphadenopathy. CARDIOVASCULAR: Regular rate and rhythm without murmurs, gallops, or rubs. RESPIRATORY: Breath sounds equal bilaterally. No accessory muscle use. Rt Chest tube draining GASTROINTESTINAL: Abdomen soft, non-tender, nondistended. MUSCULOSKELETAL: No cyanosis, or edema. BACK: Nontender without obvious deformity. No CVA tenderness. Narrative: GENERAL: This is a well-nourished, well-developed patient, in no apparent distress CARDIOVASCULAR: Regular rate and rhythm RESPIRATORY: Chest tube on right; Rhonchi noted GASTROINTESTINAL: Abdomen soft, non-tender, nondistended. Normal active bowel sounds MUSCULOSKELETAL: Extremities without clubbing, cyanosis, or edema. NEURO: Alert & Oriented x4 to person, place, time, situation. Moves all ext x4 Assessment and Plan - Plan IMPRESSION: Right PTX COPD Nicotine use H/O AAA repair Chest wall pain Pleural effusion, Empyema PLAN: Chest tubes to suction Pl fluid for studies Abx Vanco and Clinda per ID Supplement 02 Percocet for pain DW Pt Will need decortication
[2018-05-22] MEDS: Clindamycin 900 mg/NS Premix 900 MG/50 ML PIGGYBACK IV.SIG SCH ×2 (17:57→23:04)
--- NOTE | 2018-05-22 21:09 | CT ---
EXAM DATE: 05/22/2018 9:00 PM EDT AGE/SEX: 62 years / Male INDICATIONS: Dyspnea; pleural effusion. CLINICAL DATA: This is the patient's subsequent encounter. Patient reports that signs and symptoms h ave been present for 4 - 6 days and indicates a pain score of 6/10. MEDICAL/SURGICAL HISTORY: Chronic obstructive pulmonary disease. Acute pneumothorax / empyema . RADIATION DOSE: 9.59 CTDI (mGy) COMPARISON: [facility] [place], [place] CHEST W/O CONTRAST, 05/18/2018. . TECHNIQUE: Multiple contiguous axial images were obtained through the chest without contrast. Image s were obtained in suspended respiration using multiple row detector helical technique. Using automa roula exposure control and adjustment of the mA and/or kV according to patient size, radiation dose was kept as low as reasonably achievable to obtain optimal diagnostic quality images. DICOM format imag e data is available electronically for review and comparison. FINDINGS: Lungs: There is a right-sided chest tube with a mild to moderate hydropneumothorax seen measuring up to 2.3 cm in thickness. There is emphysematous change in the upper lungs. There is increased density at the right middle and lower lobes. There are some mild patchy density at the anterior left lower l obe. Mediastinum: There is a mild amount is scattered air within the mediastinum. Significant adenopathy is not seen. Normal-sized lymph nodes are identified. Pleurae: There is a mild to moderate right hydropneumothorax measuring up to 2.3 cm. There is a righ t-sided chest tube present. Axillae: Unremarkable. Bony Structures: Unremarkable. Miscellaneous: There is very prominent soft tissue emphysema seen in the chest. This more prominent on the right side. There is diffuse decreased attenuation to the liver. CONCLUSION: 1. Fxid-gx-newistat right hydropneumothorax with a right-sided chest tube. 2. There is a consolidation or atelectasis at the right middle lobe, right lower lobe and to a lesse r degree the anterior left lower lobe. 3. Soft tissue emphysema. 4. Emphysematous change seen within the lungs. 5. Hepatic steatosis. Electronically signed by: Chaparro Blount MD 05/22/2018 9:08 PM EDT
[2018-05-23] MEDS: Heparin - SQ 10,000 UNITS/ML Vial SQ SCH ×3 (05:55→21:31)
[2018-05-23] MEDS: Clindamycin 900 mg/NS Premix 900 MG/50 ML PIGGYBACK IV.SIG SCH ×3 (06:00→22:03)
[2018-05-23 07:24] LABS: Hematocrit 39.4 % (39.0-51.0); Hemoglobin 12.9 gm/dL (13.0-17.0); Mean Corpuscular HGB Conc 32.9 % (32.0-36.0); Mean Corpuscular Hemoglobin 31.6 pg (27.0-34.0); Mean Corpuscular Volume 96.2 fL (80.0-100.0); Mean Platelet Volume 8.3 fL (7.0-11.0); Platelet Count 251 th/mm3 (150-450); Red Cell Distribution Width 14.9 % (11.6-17.2); White Blood Count 13.8 th/mm3 (4.0-11.0)
[2018-05-23] MEDS: predniSONE 20 MG Tablet PO SCH (08:31)
[2018-05-23] MEDS: guaiFENesin 600 MG ER Tablet PO SCH ×2 (08:33→21:31)
[2018-05-23] MEDS: Insulin NovoLOG Aspart Correctional Sugar Inj SQ SCH ×4 (10:40→21:32)
[2018-05-23] MEDS: Budesonide-Formoterol 80/4.5 MCG 6.9 GM Inhaler INH SCH ×2 (10:41→22:04)
--- NOTE | 2018-05-23 10:56 | P.PNIM ---
Subjective Interval history: The patient said he was feeling better now that he took his pain medications. He was hoping to avoid surgery. He says he would like to work with physical therapy every day if possible. No acute complaints at this time. He says [birth year]. Physical Exam Vital signs: Vital Signs 05/22/18 12:00 05/22/18 12:21 05/22/18 13:19 Temperature 97.5 F L Pulse Rate 93 H 79 Respiratory Rate 19 18 20 Blood Pressure 127/77 Pulse Oximetry 91 L 05/22/18 16:00 05/22/18 16:43 05/22/18 19:11 Temperature 98.5 F 98.7 F Pulse Rate 82 76 97 H Respiratory Rate 19 17 19 Blood Pressure 119/62 123/62 Pulse Oximetry 93 L 96 05/22/18 19:50 05/22/18 20:00 05/22/18 23:00 Temperature 98.4 F Pulse Rate 97 H 93 H 86 Respiratory Rate 16 19 Blood Pressure 134/73 Pulse Oximetry 95 97 05/22/18 23:13 05/23/18 00:00 05/23/18 01:09 Temperature Pulse Rate 89 Respiratory Rate 18 18 Blood Pressure Pulse Oximetry 05/23/18 03:45 05/23/18 04:01 05/23/18 08:00 Temperature 98.0 F 98.7 F Pulse Rate 84 71 82 Respiratory Rate 18 20 Blood Pressure 124/63 138/66 Pulse Oximetry 94 L 98 Intake & Output 05/22/18 05/23/18 05/23/18 18:59 06:59 18:59 Intake Total 1240 / 1240 770 / 770 Output Total 800 / 800 960 / 960 Balance 440 / 440 -190 / -190 Weight 111.7 kg Intake: IV 620 / 620 50 / 50 Cleocin 900 mg/NS Premix 900 mg 50 / 50 50 / 50 In 50 ml @ 100 mls/hr IV.SIG Q8H SERGIO Rx#:[id number] Zosyn 3.375 GM Premix 50 ML @ 50 / 50 100 mls/hr IV.SIG Q6H SERGIO Rx#: [id number] Vancomycin Inj 2,000 MG In NS 520 / 520 Inj 500 ML @ 250 mls/hr IV.SIG Q24H SERGIO Rx#:[id number] Oral 620 / 620 720 / 720 Output: Urine 800 / 800 950 / 950 Chest Tube Drainage #2 Mid-Axillary Chest Other: Date of Last Bowel Movement 05/21/18 05/21/18 # Bowel Movements 2 0 Narrative: GENERAL: This is a well-nourished, well-developed patient, in no apparent distress CARDIOVASCULAR: Regular rate and rhythm RESPIRATORY: Chest tube on right with purulent material draining; Rhonchi noted GASTROINTESTINAL: Abdomen soft, non-tender, nondistended. Normal active bowel sounds MUSCULOSKELETAL: Extremities without clubbing, cyanosis, or edema. NEURO: Alert & Oriented x4 to person, place, time, situation. Moves all ext x4 Results - Labs CBC & Chem 7: 05/23/18 06:20 05/22/18 06:34 Laboratory Results - last 24 hr 05/22/18 05/22/18 05/22/18 11:42 16:47 20:04 WBC RBC Hgb Hct MCV MCH MCHC RDW Plt Count MPV POC Glucose 327 H 309 H 265 H 05/23/18 05/23/18 06:20 07:57 WBC 13.8 H RBC 4.10 L Hgb 12.9 L Hct 39.4 MCV 96.2 MCH 31.6 MCHC 32.9 RDW 14.9 Plt Count 251 MPV 8.3 POC Glucose 130 H Microbiology 05/21/18 17:42 Fluid - Pleural fluid Gram Stain - Final 05/21/18 17:42 Fluid - Pleural fluid Body Fluid Culture - Final S. aureus MRSA 05/21/18 17:41 Fluid - Pleural fluid Fungal Smear - Final No fungal elements seen - Imaging Impressions Chest CT 05/22/18 00:00 CONCLUSION: 1. [id number] right hydropneumothorax with a right-sided chest tube. 2. There is a consolidation or atelectasis at the right middle lobe, right lower lobe and to a lesser degree the anterior left lower lobe. 3. Soft tissue emphysema. 4. Emphysematous change seen within the lungs. 5. Hepatic steatosis. Chest X-Ray 05/22/18 11:51 CONCLUSION: Stable right-sided chest tube. No visible pneumothorax on the current exam. The right-sided pleural effusion and adjacent atelectasis appears stable to slightly decreased in amount as compared to the prior exam. - Procedures chest tube right Assessment and Plan - Assessment (1) Pneumothorax, acute Code(s): J93.83 - Other pneumothorax Status: Acute (2) COPD (chronic obstructive pulmonary disease) Code(s): J44.9 - Chronic obstructive pulmonary disease, unspecified Status: Chronic - Plan Recurrent right-sided pneumothorax Likely secondary to ruptured bleb secondary to underlying undiagnosed COPD with continued hypoxemia. Patient has right pleural effusion. When tube unclamped by pulmonology pus started draining so antibiotics were started. CT surgery and ID consults appreciated. -continue IV vancomycin and clindamycin per ID. -wean oxygen to keep saturations at least 92%. -scheduled DuoNeb treatments. -tapering steroids to 20 mg daily. -follow up with pulmonology. Consult appreciated. -CTS following for possible procedure. Pain S/t chest tube. -pain control with a bowel regimen. -PT. Leukocytosis Likely s/t steroids. -monitor. New onset DM A1c 6.8%. -Diabetic education. -Monitor FS with SSC. -wean steroids. Elevated AST and ALT Med related ? Tylenol level not elevated. Hepatitis profile negative. Asymptomatic. - Monitor as needed. DVT prophylaxis-Bilateral lower extremity SCDs. Heparin 5000 units subcu every 8 hours
--- NOTE | 2018-05-23 11:53 | P.PNCA ---
- Note Subjective/Hospital Course: No complaints. Right chest tube is clamped. 05/22/18 Patient with copious purulent drainage from right chest tube. No complaints otherwise. 05/23/18 Doing well, no complaints Objective: Vital Signs - 24 hr 05/22/18 12:00 05/22/18 12:21 05/22/18 13:19 Temperature 97.5 F L Pulse Rate 93 H 79 Respiratory Rate 19 18 20 Blood Pressure 127/77 Pulse Oximetry 91 L 05/22/18 16:00 05/22/18 16:43 05/22/18 19:11 Temperature 98.5 F 98.7 F Pulse Rate 82 76 97 H Respiratory Rate 19 17 19 Blood Pressure 119/62 123/62 Pulse Oximetry 93 L 96 05/22/18 19:50 05/22/18 20:00 05/22/18 23:00 Temperature 98.4 F Pulse Rate 97 H 93 H 86 Respiratory Rate 16 19 Blood Pressure 134/73 Pulse Oximetry 95 97 05/22/18 23:13 05/23/18 00:00 05/23/18 01:09 Temperature Pulse Rate 89 Respiratory Rate 18 18 Blood Pressure Pulse Oximetry 05/23/18 03:45 05/23/18 04:01 05/23/18 08:00 Temperature 98.0 F 98.7 F Pulse Rate 84 71 82 Respiratory Rate 18 20 Blood Pressure 124/63 138/66 Pulse Oximetry 94 L 98 Labs: Laboratory Results - last 12 hr 05/23/18 05/23/18 06:20 07:57 WBC 13.8 H RBC 4.10 L Hgb 12.9 L Hct 39.4 MCV 96.2 MCH 31.6 MCHC 32.9 RDW 14.9 Plt Count 251 MPV 8.3 POC Glucose 130 H Result Diagrams: 05/23/18 06:20 05/22/18 06:34 Imaging: Chest CT 05/22/18 00:00 CONCLUSION: 1. [id number] right hydropneumothorax with a right-sided chest tube. 2. There is a consolidation or atelectasis at the right middle lobe, right lower lobe and to a lesser degree the anterior left lower lobe. 3. Soft tissue emphysema. 4. Emphysematous change seen within the lungs. 5. Hepatic steatosis. Chest X-Ray 05/22/18 11:51 CONCLUSION: Stable right-sided chest tube. No visible pneumothorax on the current exam. The right-sided pleural effusion and adjacent atelectasis appears stable to slightly decreased in amount as compared to the prior exam. Cardiovascular: RRR Pulmonary: Decreased BS on R CT: minimal output No air leak - Plan (1) Pneumothorax, acute Plan: Chest tube has been clamped by Dr. Sanders. Will review CXR tomorrow. He may have an issue with pleural fluid, but I do not see an air leak. If his CXR is stable, agree with pulling tube. I reviewed the chest CT and he has a mild to moderate loculated effusion. He is clinically improving with decreasing WBC. He has had a long course with the chest tube and there is a significant risk of morbidity with surgical intervention. He would likely require a formal decortication procedure if he decompensates. Recommend chest tube to water seal today and consider removal tomorrow if his CXR is stable.
[2018-05-23] MEDS: Vancomycin Inj 2,000 MG in Sodium Chlor 0.9% Inj 500 ML IV.SIG SCH (14:09)
--- NOTE | 2018-05-23 18:44 | P.PNPL ---
Subjective Interval history: 62 YOWM with PTX Chest tube to suction Has Purulent material draining Denies sob or CP Feels comfortable is following Physical Exam Vital signs: Vital Signs 05/22/18 19:11 05/22/18 19:50 05/22/18 20:00 Temperature 98.7 F Pulse Rate 97 H 97 H 93 H Respiratory Rate 19 16 Blood Pressure 123/62 Pulse Oximetry 96 95 05/22/18 23:00 05/22/18 23:13 05/23/18 00:00 Temperature 98.4 F Pulse Rate 86 89 Respiratory Rate 19 18 Blood Pressure 134/73 Pulse Oximetry 97 05/23/18 01:09 05/23/18 03:45 05/23/18 04:01 Temperature 98.0 F Pulse Rate 84 71 Respiratory Rate 18 18 Blood Pressure 124/63 Pulse Oximetry 94 L 05/23/18 08:00 05/23/18 12:00 05/23/18 12:05 Temperature 98.7 F 99.1 F Pulse Rate 77 87 Respiratory Rate 20 20 15 Blood Pressure 138/66 116/65 Pulse Oximetry 98 95 05/23/18 13:14 Temperature Pulse Rate Respiratory Rate 20 Blood Pressure Pulse Oximetry Intake & Output 05/22/18 05/23/18 05/23/18 18:59 06:59 18:59 Intake Total 1240 / 1240 820 / 820 550 / 550 Output Total 800 / 800 960 / 960 Balance 440 / 440 -140 / -140 550 / 550 Weight 111.7 kg Intake: IV 620 / 620 100 / 100 Cleocin 900 mg/NS Premix 900 mg 50 / 50 100 / 100 In 50 ml @ 100 mls/hr IV.SIG Q8H SERGIO Rx#:[id number] Zosyn 3.375 GM Premix 50 ML @ 50 / 50 100 mls/hr IV.SIG Q6H SERGIO Rx#: [id number] Vancomycin Inj 2,000 MG In NS 520 / 520 Inj 500 ML @ 250 mls/hr IV.SIG Q24H SERGIO Rx#:[id number] Oral 620 / 620 720 / 720 Other 550 / 550 Output: Urine 800 / 800 950 / 950 Chest Tube Drainage #2 Mid-Axillary Chest Other: Other Intake Source Saline Solution Date of Last Bowel Movement 07/13/18 07/13/18 07/13/18 # Bowel Movements 2 0 GENERAL: Obese WM,NAD, non toxic SKIN: Warm and dry. HEAD: Normocephalic. EYES: No scleral icterus. No injection or drainage. NECK: Supple, trachea midline. No JVD or lymphadenopathy. CARDIOVASCULAR: Regular rate and rhythm without murmurs, gallops, or rubs. RESPIRATORY: Breath sounds equal bilaterally. No accessory muscle use. Rt chest tube draining purulent drainage GASTROINTESTINAL: Abdomen soft, non-tender, nondistended. MUSCULOSKELETAL: No cyanosis, or edema. BACK: Nontender without obvious deformity. No CVA tenderness. Narrative: GENERAL: This is a well-nourished, well-developed patient, in no apparent distress CARDIOVASCULAR: Regular rate and rhythm RESPIRATORY: Chest tube on right with purulent material draining; Rhonchi noted GASTROINTESTINAL: Abdomen soft, non-tender, nondistended. Normal active bowel sounds MUSCULOSKELETAL: Extremities without clubbing, cyanosis, or edema. NEURO: Alert & Oriented x4 to person, place, time, situation. Moves all ext x4 Assessment and Plan - Plan IMPRESSION: Right PTX COPD Nicotine use H/O AAA repair Chest wall pain Pleural effusion, Empyema PLAN: Chest tubes to suction Pl fluid for studies Abx Vanco and Clinda per ID Supplement 02 Percocet for pain DW Pt Chest tube management per CTS.
[2018-05-24] MEDS: Heparin - SQ 10,000 UNITS/ML Vial SQ SCH ×3 (05:39→21:45)
[2018-05-24] MEDS: Clindamycin 900 mg/NS Premix 900 MG/50 ML PIGGYBACK IV.SIG SCH ×2 (06:05→15:45)
[2018-05-24] MEDS: Insulin NovoLOG Aspart Correctional Sugar Inj SQ SCH ×4 (08:18→21:45)
--- NOTE | 2018-05-24 09:30 | XR ---
EXAM DATE: 05/24/2018 8:48 AM EDT AGE/SEX: 63 years / Male INDICATIONS: Follow up pneumothorax. CLINICAL DATA: This is the patient's subsequent encounter. Patient reports that signs and symptoms h ave been present for 4 - 6 days and indicates a pain score of 0/10. MEDICAL/SURGICAL HISTORY: None. . Abdominal aortic aneurysm repair. Right sided chest tube [place]PAR[place]: [facility] [place]/22/2018. [facility] [place] 1[place]ING[place] AP, 05/22/[place]. . FINDINGS: Portable AP semiupright single view of the chest demonstrates a normal-sized cardiac silhouette. EKG lines overlie the patient and right chest tube remains present in the peripheral right mid hemithorax . Lungs are underinflated with subsegmental atelectasis at the left lung base. There is a small right pleural-based opacity with airspace opacity at the right lung base. No pneumothorax is identified. T here is stable right chest wall subcutaneous emphysema. CONCLUSION: Stable small right pleural effusion with atelectasis versus consolidation at the right lung base. Rig ht chest tube remains present and no pneumothorax is identified. Electronically signed by: Chaparro Beltran MD 05/24/2018 9:28 AM EDT
[2018-05-24] MEDS: guaiFENesin 600 MG ER Tablet PO SCH ×2 (11:29→21:45)
[2018-05-24] MEDS: predniSONE 20 MG Tablet PO SCH (11:29)
[2018-05-24] MEDS: Budesonide-Formoterol 80/4.5 MCG 6.9 GM Inhaler INH SCH ×2 (11:30→21:50)
--- NOTE | 2018-05-24 12:13 | P.PNIM ---
Subjective Interval history: The patient wants to go home. He says the only discomfort is at the site of his chest tube. He thinks he will have a bowel movement today. No other acute complaints. Physical Exam Vital signs: Vital Signs 05/23/18 13:14 05/23/18 16:00 05/23/18 19:40 Temperature 98.2 F Pulse Rate 65 Respiratory Rate 20 20 18 Blood Pressure 128/73 Pulse Oximetry 98 05/23/18 19:58 05/23/18 20:19 05/23/18 21:29 Temperature 98.7 F Pulse Rate 77 77 84 Respiratory Rate 18 16 Blood Pressure 143/87 H Pulse Oximetry 96 96 05/23/18 23:39 05/23/18 23:57 05/24/18 00:44 Temperature 98.9 F Pulse Rate 77 74 Respiratory Rate 19 18 Blood Pressure 128/79 Pulse Oximetry 97 05/24/18 03:18 05/24/18 04:00 05/24/18 07:14 Temperature 98.6 F Pulse Rate 75 67 78 Respiratory Rate 18 Blood Pressure 158/73 H Pulse Oximetry 96 05/24/18 08:00 05/24/18 08:19 05/24/18 11:21 Temperature 98.6 F Pulse Rate 72 76 80 Respiratory Rate 20 17 17 Blood Pressure 143/69 H Pulse Oximetry 96 96 Intake & Output 05/23/18 05/24/18 05/24/18 18:59 06:59 18:59 Intake Total 1000 / 1000 530 / 530 Output Total 1700 / 1700 975 / 975 Balance -700 / -700 -445 / -445 Weight 111.7 kg Intake: IV 50 / 50 50 / 50 Cleocin 900 mg/NS Premix 900 mg 50 / 50 50 / 50 In 50 ml @ 100 mls/hr IV.SIG Q8H SERGIO Rx#:[id number] Oral 400 / 400 480 / 480 Other 550 / 550 Output: Urine 1700 / 1700 975 / 975 Chest Tube Drainage 0 / 0 #2 Mid-Axillary Chest 0 / 0 Other: Other Intake Source Saline Solution Date of Last Bowel Movement 05/21/18 05/21/18 05/21/18 # Bowel Movements 0 0 Narrative: GENERAL: This is a well-nourished, well-developed patient, in no apparent distress CARDIOVASCULAR: Regular rate and rhythm RESPIRATORY: Chest tube on right with purulent material draining; Rhonchi noted. GASTROINTESTINAL: Abdomen soft, non-tender, nondistended. Normal active bowel sounds. MUSCULOSKELETAL: Extremities without clubbing, cyanosis, or edema. NEURO: Alert & Oriented x4 to person, place, time, situation. Moves all ext x4 Results - Labs CBC & Chem 7: 05/23/18 06:20 05/22/18 06:34 Laboratory Results - last 24 hr 05/21/18 05/23/18 05/23/18 17:41 12:13 16:26 POC Glucose 345 H 292 H Pleural Fluid Comment 05/23/18 05/24/18 05/24/18 21:25 08:00 11:27 POC Glucose 265 H 147 H 172 H Pleural Fluid Comment Microbiology 05/21/18 17:42 Fluid - Pleural fluid Gram Stain - Final 05/21/18 17:42 Fluid - Pleural fluid Body Fluid Culture - Final S. aureus MRSA - Imaging Impressions Chest X-Ray 05/24/18 06:00 CONCLUSION: Stable small right pleural effusion with atelectasis versus consolidation at the right lung base. Right chest tube remains present and no pneumothorax is identified. - Procedures chest tube right Assessment and Plan - Assessment (1) Pneumothorax, acute Code(s): J93.83 - Other pneumothorax Status: Acute (2) COPD (chronic obstructive pulmonary disease) Code(s): J44.9 - Chronic obstructive pulmonary disease, unspecified Status: Chronic - Plan Recurrent right-sided pneumothorax Likely secondary to ruptured bleb secondary to underlying undiagnosed COPD with continued hypoxemia. Patient has right pleural effusion. When tube unclamped by pulmonology pus started draining so antibiotics were started. CT surgery and ID consults appreciated. -continue IV vancomycin and clindamycin per ID. -wean oxygen to keep saturations at least 92%. -scheduled DuoNeb treatments. -tapering steroids to 20 mg daily. -follow up with pulmonology. Consult appreciated. -CTS following. Monitor for now. Pain S/t chest tube. -pain control with a bowel regimen. -PT. Leukocytosis Likely s/t steroids. -monitor. -wean steroids. New onset DM A1c 6.8%. -Diabetic education. -Monitor FS with SSC. -wean steroids. Elevated AST and ALT Med related ? Tylenol level not elevated. Hepatitis profile negative. Asymptomatic. - Monitor as needed. DVT prophylaxis-Bilateral lower extremity SCDs. Heparin 5000 units subcu every 8 hours
[2018-05-24] MEDS: Vancomycin Inj 2,000 MG in Sodium Chlor 0.9% Inj 500 ML IV.SIG SCH (13:09)
[2018-05-24 14:07] LABS: Baso # (Auto) 0.1 th/mm3 (0.0-0.2); Baso % (Auto) 0.5 % (0.0-2.0); Eos # (Auto) 0.2 th/mm3 (0.0-0.4); Eos % (Auto) 1.5 % (0.0-4.0); Hematocrit 38.7 % (39.0-51.0); Hemoglobin 12.8 gm/dL (13.0-17.0); Lymph # (Auto) 1.6 th/mm3 (1.0-4.8); Lymph % (Auto) 10.9 % (9.0-44.0); Mean Corpuscular HGB Conc 33.2 % (32.0-36.0); Mean Corpuscular Hemoglobin 31.5 pg (27.0-34.0); Mean Platelet Volume 8.1 fL (7.0-11.0); Mono # (Auto) 0.7 th/mm3 (0.0-0.9); Neut # (Auto) 12.4 th/mm3 (1.8-7.7); Neut % (Auto) 82.1 % (16.0-70.0); Platelet Count 255 th/mm3 (150-450); Red Blood Count 4.07 mil/mm3 (4.50-5.90); Red Cell Distribution Width 14.9 % (11.6-17.2); White Blood Count 15.1 th/mm3 (4.0-11.0)
--- NOTE | 2018-05-24 14:47 | P.PNCA ---
- Note Subjective/Hospital Course: No complaints. Right chest tube is clamped. 05/22/18 Patient with copious purulent drainage from right chest tube. No complaints otherwise. 05/23/18 Doing well, no complaints 05/24/18 no drainage from chest tube/ no air leak chest tube removed without difficulty pt chest tube site had yellowish foul smelling purulent drainage tube was not securely sutured site cleansed with chlorhexidine / sterile vaseline gauze dressing applied f/u CXR in am if worsening effusion / may need to consider right vats with decortication Objective: Vital Signs - 24 hr 05/23/18 16:00 05/23/18 19:40 05/23/18 19:58 Temperature 98.2 F Pulse Rate 65 77 Respiratory Rate 20 18 Blood Pressure 128/73 Pulse Oximetry 98 05/23/18 20:19 05/23/18 21:29 05/23/18 23:39 Temperature 98.7 F 98.9 F Pulse Rate 77 84 77 Respiratory Rate 18 16 19 Blood Pressure 143/87 H 128/79 Pulse Oximetry 96 96 97 05/23/18 23:57 05/24/18 00:44 05/24/18 03:18 Temperature 98.6 F Pulse Rate 74 75 Respiratory Rate 18 18 Blood Pressure 158/73 H Pulse Oximetry 96 05/24/18 04:00 05/24/18 07:14 05/24/18 08:00 Temperature 98.6 F Pulse Rate 67 78 72 Respiratory Rate 20 Blood Pressure 143/69 H Pulse Oximetry 96 05/24/18 08:19 05/24/18 11:21 05/24/18 12:00 Temperature 98.5 F Pulse Rate 76 80 78 Respiratory Rate 17 17 18 Blood Pressure 131/60 Pulse Oximetry 96 92 L GENERAL: SKIN: Warm and dry. HEAD: Normocephalic. EYES: No scleral icterus. No injection or drainage. NECK: Supple, trachea midline. No JVD or lymphadenopathy. CARDIOVASCULAR: Regular rate and rhythm without murmurs, gallops, or rubs. RESPIRATORY: Breath sounds equal bilaterally. No accessory muscle use. diminished right lower lobe / chest tube removed GASTROINTESTINAL: Abdomen soft, non-tender, nondistended. MUSCULOSKELETAL: No cyanosis, or edema. BACK: Nontender without obvious deformity. No CVA tenderness. Labs: Laboratory Results - last 12 hr 05/21/18 05/24/18 05/24/18 17:41 08:00 11:27 WBC RBC Hgb Hct MCV MCH MCHC RDW Plt Count MPV Neut % (Auto) Lymph % (Auto) [place] % (Auto) Eos % (Auto) Baso % (Auto) Neut # (Auto) Lymph # (Auto) [place] # (Auto) Eos # (Auto) Baso # (Auto) WBC Differential Differential Comment POC Glucose 147 H 172 H Pleural Fluid Comment 05/24/18 13:43 WBC 15.1 H RBC 4.07 L Hgb 12.8 L Hct 38.7 L MCV 95.0 MCH 31.5 MCHC 33.2 RDW 14.9 Plt Count 255 MPV 8.1 Neut % (Auto) 82.1 H Lymph % (Auto) 10.9 [place] % (Auto) 5.0 Eos % (Auto) 1.5 Baso % (Auto) 0.5 Neut # (Auto) 12.4 H Lymph # (Auto) 1.6 [place] # (Auto) 0.7 Eos # (Auto) 0.2 Baso # (Auto) 0.1 WBC Differential . Differential Comment Auto diff final POC Glucose Pleural Fluid Comment Result Diagrams: 05/24/18 13:43 05/22/18 06:34 - Plan (1) Pneumothorax, acute Plan: Chest tube has been clamped by Dr. Sanders. Will review CXR tomorrow. He may have an issue with pleural fluid, but I do not see an air leak. If his CXR is stable, agree with pulling tube. chest tube removed f/u CXR in am leave current dressing in place until Thursday, then ok to remove, and allow pt to shower
--- NOTE | 2018-05-24 19:13 | P.PNPL ---
Subjective Interval history: 62 YOWM with PTX Chest tube to suction Chest tube removed On RA Breathing better Physical Exam Vital signs: Vital Signs 05/23/18 19:40 05/23/18 19:58 05/23/18 20:19 Temperature 98.7 F Pulse Rate 77 77 Respiratory Rate 18 18 Blood Pressure 143/87 H Pulse Oximetry 96 05/23/18 21:29 05/23/18 23:39 05/23/18 23:57 Temperature 98.9 F Pulse Rate 84 77 74 Respiratory Rate 16 19 Blood Pressure 128/79 Pulse Oximetry 96 97 05/24/18 00:44 05/24/18 03:18 05/24/18 04:00 Temperature 98.6 F Pulse Rate 75 67 Respiratory Rate 18 18 Blood Pressure 158/73 H Pulse Oximetry 96 05/24/18 07:14 05/24/18 08:00 05/24/18 08:19 Temperature 98.6 F Pulse Rate 78 72 76 Respiratory Rate 20 17 Blood Pressure 143/69 H Pulse Oximetry 96 96 05/24/18 11:21 05/24/18 12:00 05/24/18 16:00 Temperature 98.5 F 98.9 F Pulse Rate 80 78 75 Respiratory Rate 17 18 18 Blood Pressure 131/60 143/76 H Pulse Oximetry 92 L 93 L 05/24/18 16:13 Temperature Pulse Rate 72 Respiratory Rate 16 Blood Pressure Pulse Oximetry 97 Intake & Output 05/24/18 05/24/18 05/25/18 06:59 18:59 06:59 Intake Total 580 / 580 1050 / 1050 Output Total 975 / 975 525 / 525 Balance -395 / -395 525 / 525 Weight 111.7 kg Intake: IV 100 / 100 570 / 570 Cleocin 900 mg/NS Premix 900 mg 100 / 100 50 / 50 In 50 ml @ 100 mls/hr IV.SIG Q8H SERGIO Rx#:[id number] Vancomycin Inj 2,000 MG In NS 520 / 520 Inj 500 ML @ 250 mls/hr IV.SIG Q24H SERGIO Rx#:[id number] Oral 480 / 480 480 / 480 Output: Urine 975 / 975 525 / 525 Chest Tube Drainage 0 / 0 #2 Mid-Axillary Chest 0 / 0 Other: Date of Last Bowel Movement 05/21/18 05/21/18 # Bowel Movements 0 GENERAL: WBWN WM,NAD SKIN: Warm and dry. HEAD: Normocephalic. EYES: No scleral icterus. No injection or drainage. NECK: Supple, trachea midline. No JVD or lymphadenopathy. CARDIOVASCULAR: Regular rate and rhythm without murmurs, gallops, or rubs. RESPIRATORY: Breath sounds equal bilaterally. No accessory muscle use. GASTROINTESTINAL: Abdomen soft, non-tender, nondistended. MUSCULOSKELETAL: No cyanosis, or edema. BACK: Nontender without obvious deformity. No CVA tenderness. Narrative: GENERAL: This is a well-nourished, well-developed patient, in no apparent distress CARDIOVASCULAR: Regular rate and rhythm RESPIRATORY: Chest tube on right with purulent material draining; Rhonchi noted. GASTROINTESTINAL: Abdomen soft, non-tender, nondistended. Normal active bowel sounds. MUSCULOSKELETAL: Extremities without clubbing, cyanosis, or edema. NEURO: Alert & Oriented x4 to person, place, time, situation. Moves all ext x4 Assessment and Plan - Plan IMPRESSION: Right PTX COPD Nicotine use H/O AAA repair Chest wall pain Pleural effusion, Empyema PLAN: Chest tube removed Abx Vanco and Clinda per ID Supplement 02 Percocet for pain DW Pt
--- NOTE | 2018-05-25 03:56 | XR ---
EXAM DATE: 05/25/2018 3:27 AM EDT AGE/SEX: 63 years / Male INDICATIONS: . R/O PTX CLINICAL DATA: This is the patient's subsequent encounter. Patient reports that signs and symptoms h ave been present for 1 week and indicates a pain score of 0/10. MEDICAL/SURGICAL HISTORY: None. . Abdominal aortic aneurysm repair. Right sided chest tube COMPARISON: [facility], CHEST 1V SINGLE AP, 05/24/2018. . FINDINGS: Right chest tube has been removed. No pneumothorax. Bilateral effusions, right greater than left basi lar airspace disease right greater than left remains fairly stable. Heart size mildly enlarged. CONCLUSION: Removal of right chest tube without pneumothorax. Basilar airspace disease and right effusion appears stable. Electronically signed by: Kel Skinner MD 05/25/2018 3:54 AM EDT
[2018-05-25] MEDS: Heparin - SQ 10,000 UNITS/ML Vial SQ SCH ×3 (06:33→21:44)
[2018-05-25] MEDS: Insulin NovoLOG Aspart Correctional Sugar Inj SQ SCH ×3 (09:02→18:00)
[2018-05-25] MEDS: guaiFENesin 600 MG ER Tablet PO SCH ×2 (09:03→21:43)
[2018-05-25] MEDS: predniSONE 20 MG Tablet PO SCH (09:03)
[2018-05-25] MEDS: Budesonide-Formoterol 80/4.5 MCG 6.9 GM Inhaler INH SCH ×2 (09:06→21:44)
--- NOTE | 2018-05-25 11:31 | P.PNIM ---
Subjective Interval history: The patient was asking why he was not going home yet. He denies any pain except for the incision. He says he has been having bowel movements. Discussed with pulmonology. Physical Exam Vital signs: Vital Signs 05/24/18 12:00 05/24/18 16:00 05/24/18 16:13 Temperature 98.5 F 98.9 F Pulse Rate 78 75 72 Respiratory Rate 18 18 16 Blood Pressure 131/60 143/76 H Pulse Oximetry 92 L 93 L 97 05/24/18 19:59 05/24/18 20:00 05/24/18 22:15 Temperature 98.1 F Pulse Rate 89 88 Respiratory Rate 17 18 Blood Pressure 118/64 Pulse Oximetry 94 L 05/25/18 00:00 05/25/18 00:11 05/25/18 01:09 Temperature 97.9 F Pulse Rate 77 66 Respiratory Rate 17 18 Blood Pressure 132/68 Pulse Oximetry 92 L 05/25/18 04:50 05/25/18 08:00 05/25/18 08:06 Temperature 98.5 F 98.4 F Pulse Rate 79 80 68 Respiratory Rate 17 18 Blood Pressure 134/65 133/68 Pulse Oximetry 95 93 L 05/25/18 09:11 Temperature Pulse Rate 107 H Respiratory Rate 17 Blood Pressure Pulse Oximetry Intake & Output 05/24/18 05/25/18 05/25/18 18:59 06:59 18:59 Intake Total 1050 / 1050 720 / 720 Output Total 525 / 525 Balance 525 / 525 720 / 720 Weight 111.7 kg Intake: IV 570 / 570 Cleocin 900 mg/NS Premix 900 mg 50 / 50 In 50 ml @ 100 mls/hr IV.SIG Q8H SERGIO Rx#:[id number] Vancomycin Inj 2,000 MG In NS 520 / 520 Inj 500 ML @ 250 mls/hr IV.SIG Q24H SERGIO Rx#:[id number] Oral 480 / 480 720 / 720 Output: Urine 525 / 525 Other: # Voids 3 Date of Last Bowel Movement 05/21/18 05/21/18 # Bowel Movements 0 Narrative: GENERAL: This is a well-nourished, well-developed patient, in no apparent distress CARDIOVASCULAR: Regular rate and rhythm RESPIRATORY: CTAB GASTROINTESTINAL: Abdomen soft, non-tender, nondistended. Normal active bowel sounds MUSCULOSKELETAL: Extremities without clubbing, cyanosis, or edema NEURO: Alert & Oriented x4 to person, place, time, situation. Moves all ext x4 Results - Labs CBC & Chem 7: 05/24/18 13:43 05/22/18 06:34 Laboratory Results - last 24 hr 05/21/18 05/24/18 05/24/18 17:41 11:27 13:43 WBC 15.1 H RBC 4.07 L Hgb 12.8 L Hct 38.7 L MCV 95.0 MCH 31.5 MCHC 33.2 RDW 14.9 Plt Count 255 MPV 8.1 Neut % (Auto) 82.1 H Lymph % (Auto) 10.9 [place] % (Auto) 5.0 Eos % (Auto) 1.5 Baso % (Auto) 0.5 Neut # (Auto) 12.4 H Lymph # (Auto) 1.6 [place] # (Auto) 0.7 Eos # (Auto) 0.2 Baso # (Auto) 0.1 WBC Differential . Differential Comment Auto diff final POC Glucose 172 H Pleural Fluid Comment 05/24/18 05/24/18 05/25/18 17:09 21:36 07:56 WBC RBC Hgb Hct MCV MCH MCHC RDW Plt Count MPV Neut % (Auto) Lymph % (Auto) [place] % (Auto) Eos % (Auto) Baso % (Auto) Neut # (Auto) Lymph # (Auto) [place] # (Auto) Eos # (Auto) Baso # (Auto) WBC Differential Differential Comment POC Glucose 260 H 238 H 128 H Pleural Fluid Comment - Imaging Impressions Chest X-Ray 05/25/18 06:00 CONCLUSION: Removal of right chest tube without pneumothorax. Basilar airspace disease and right effusion appears stable. - Procedures chest tube right Assessment and Plan - Assessment (1) Pneumothorax, acute Code(s): J93.83 - Other pneumothorax Status: Acute (2) COPD (chronic obstructive pulmonary disease) Code(s): J44.9 - Chronic obstructive pulmonary disease, unspecified Status: Chronic - Plan Recurrent right-sided pneumothorax Likely secondary to ruptured bleb secondary to underlying undiagnosed COPD with continued hypoxemia. Patient has right pleural effusion. When tube unclamped by pulmonology pus started draining so antibiotics were started. CT surgery and ID consults appreciated. -continue IV vancomycin and clindamycin per ID. -wean oxygen to keep saturations at least 92%. -scheduled DuoNeb treatments. -d/c steroids. -follow up with pulmonology. Consult appreciated. -CTS following. Chest tube removed. Pain S/t chest tube. -pain control with a bowel regimen. Resolved now that chest tube is out. Leukocytosis Likely s/t steroids. -monitor. -d/c steroids. New onset DM A1c 6.8%. -Diabetic education. -Monitor FS with SSC. -d/c steroids. Elevated AST and ALT Med related ? Tylenol level not elevated. Hepatitis profile negative. Asymptomatic. - Monitor as needed. DVT prophylaxis-Bilateral lower extremity SCDs. Heparin 5000 units subcu every 8 hours
[2018-05-25] MEDS ORDERED: Pharmacy Ordered Lab Info OTHER ONE ×2 (12:45→13:45)
--- NOTE | 2018-05-25 13:11 | P.DCO ---
Post Hospital Infusion Therapy Location of Infusion Therapy: Home Health Care IV Infusion Order Patient Weight: 111.7 kg - Diagnosis (1) MRSA (methicillin resistant staphylococcus aureus) pneumonia Code(s): J15.212 - Pneumonia due to Methicillin resistant Staphylococcus aureus (2) Empyema Code(s): J86.9 - Pyothorax without fistula - Administer Medication Vancomycin Dose: 2 grams IV Directions: q 24 hours Stop Treatment: 06/21/18 - Additional Information Venous Access: PICC Line Additional Instructions: [x] Peripheral flush and dressing changes per protocol [x] Implanted port and central gas line servicer: * Implanted port: 10 ml Normal Saline followed by 5 ml Heparin 100 units/ml Heparin flush after each use and monthly to maintain. [] May leave port accessed during therapy. [] May leave peripheral site accessed for duration of therapy. [x] If patient has SOB or respiratory distress, check oxygen saturation. If less than 90% or clinical signs of respiratory distress, administer oxygen at 2 L/min. via nasal cannula and notify physician. [x] Anaphylaxis/Reaction orders: * Stop infusion. * Keep IV line open with saline flush. * Notify physician. * Monitor vital signs every 15 minutes until symptoms resolve. * Check Oxygen saturation; Oxygen at 2 L/min. via nasal cannula if less than 90% or clinical signs of respiratory distress. * Administer diphenhydramine (Benadryl) 25 mg IV STAT, (unless patient has received as pre-med). May repeat once, if necessary. * Solu-Cortef 250 mg IVP over 30-60 seconds, use 100 mg vials for each dissolution. * Epinephrine (1mg/1 ml) 0.3 mg subcutaneously or IVP now with any signs of respiratory distress. * Check with physician for new additional pre-med orders if patient is re- challenged or re-treated. [x] May remove PICC line when treatment complete, after confirming with Physician. [x] If the patient is admitted to the hospital, the ED, or transferred via [facility] , complete transfer form including medication reconciliation order sheet. Weekly Labs: BMP, CBC w/diff, Vancomycin Trough Additional Information: Follow up with Dr Jahaira Soto in 1 week. Allergies No Known Allergies Allergy (Unverified 05/07/18 11:05) (1) MRSA (methicillin resistant staphylococcus aureus) pneumonia Qualifiers: Laterality: right Lung location: middle lobe of lung Qualified Code(s): J15.212 - Pneumonia due to Methicillin resistant Staphylococcus aureus
--- NOTE | 2018-05-25 13:27 | P.PNID ---
Subjective Remarks: Patient is post surgical drainage of empyema. Chest tube has been removed. No complaints. Feels some soreness at the r. chest wall. Afebrile. Coughing up phlegm. This is a 62-year-old white male who was admitted to the hospital on 05/09/2018. The patient was noted to have spontaneous pneumothorax of the right lung. He underwent insertion of a pigtail chest tube after admission. He had subsequent x-rays that showed emphysema of the right lung and also persistent pleural effusion. The patient is now draining purulent drainage via the chest tube. Evaluation of the pleural fluid showed 135,000 nucleated cells with 94% neutrophils. Culture of the fluid has grown MRSA. Past Medical History: PAST MEDICAL HISTORY: Abdominal aortic aneurysm repair in 2008. Allergies/Adverse Reactions: Allergies No Known Allergies Allergy (Unverified 05/07/18 11:05) Objective Vital Signs 05/24/18 16:00 05/24/18 16:13 05/24/18 19:59 Temperature 98.9 F Pulse Rate 75 72 89 Respiratory Rate 18 16 Blood Pressure 143/76 H Pulse Oximetry 93 L 97 05/24/18 20:00 05/24/18 22:15 05/25/18 00:00 Temperature 98.1 F 97.9 F Pulse Rate 88 77 Respiratory Rate 17 18 17 Blood Pressure 118/64 132/68 Pulse Oximetry 94 L 92 L 05/25/18 00:11 05/25/18 01:09 05/25/18 04:50 Temperature 98.5 F Pulse Rate 66 79 Respiratory Rate 18 17 Blood Pressure 134/65 Pulse Oximetry 95 05/25/18 08:00 05/25/18 08:06 05/25/18 09:11 Temperature 98.4 F Pulse Rate 80 68 107 H Respiratory Rate 18 17 Blood Pressure 133/68 Pulse Oximetry 93 L 05/25/18 12:00 05/25/18 12:01 Temperature 98.6 F Pulse Rate 88 76 Respiratory Rate 18 15 Blood Pressure 127/68 Pulse Oximetry 96 Intake & Output 05/24/18 05/25/18 05/25/18 18:59 06:59 18:59 Intake Total 1050 / 1050 720 / 720 Output Total 525 / 525 Balance 525 / 525 720 / 720 Weight 111.7 kg 111.7 kg Intake: IV 570 / 570 Cleocin 900 mg/NS Premix 900 mg 50 / 50 In 50 ml @ 100 mls/hr IV.SIG Q8H SERGIO Rx#:[id number] Vancomycin Inj 2,000 MG In NS 520 / 520 Inj 500 ML @ 250 mls/hr IV.SIG Q24H SERGIO Rx#:[id number] Oral 480 / 480 720 / 720 Output: Urine 525 / 525 Other: # Voids 3 Date of Last Bowel Movement 05/21/18 05/21/18 # Bowel Movements 0 05/21/18 17:42 Fluid - Pleural fluid Gram Stain - Final 05/21/18 17:42 Fluid - Pleural fluid Body Fluid Culture - Final S. aureus MRSA 05/21/18 17:41 Fluid - Pleural fluid Fungal Smear - Final No fungal elements seen 05/21/18 17:41 Fluid - Pleural fluid Fungal Culture - Pending Lab - Hematology Results 05/24/18 13:43 WBC 15.1 H RBC 4.07 L Hgb 12.8 L Hct 38.7 L MCV 95.0 MCH 31.5 MCHC 33.2 RDW 14.9 Plt Count 255 MPV 8.1 Neut % (Auto) 82.1 H Lymph % (Auto) 10.9 [place] % (Auto) 5.0 Eos % (Auto) 1.5 Baso % (Auto) 0.5 Neut # (Auto) 12.4 H Lymph # (Auto) 1.6 [place] # (Auto) 0.7 Eos # (Auto) 0.2 Baso # (Auto) 0.1 WBC Differential . Differential Comment Auto diff final Lab - Chemistry Results 05/23/18 05/23/18 05/24/18 16:26 21:25 08:00 POC Glucose 292 H 265 H 147 H 05/24/18 05/24/18 05/24/18 11:27 17:09 21:36 POC Glucose 172 H 260 H 238 H 05/25/18 05/25/18 07:56 11:43 POC Glucose 128 H 233 H Imaging: ITS Impressions Chest CT 05/22/18 00:00 CONCLUSION: 1. [id number] right hydropneumothorax with a right-sided chest tube. 2. There is a consolidation or atelectasis at the right middle lobe, right lower lobe and to a lesser degree the anterior left lower lobe. 3. Soft tissue emphysema. 4. Emphysematous change seen within the lungs. 5. Hepatic steatosis. Chest X-Ray 05/25/18 06:00 CONCLUSION: Removal of right chest tube without pneumothorax. Basilar airspace disease and right effusion appears stable. Physical Exam: PHYSICAL EXAMINATION: GENERAL: No acute distress. He is awake and alert and oriented. HEENT: Head is atraumatic. Extraocular movements are grossly intact. Pupils reactive to light. No icterus. No conjunctival erythema. Oropharynx moist mucosa without lesions. NECK: Supple, no adenopathy. LUNGS: Decreased breath sounds bilateral, R>L. ABDOMEN: Bowel sounds present, soft, no tenderness appreciated. EXTREMITIES: No clubbing, cyanosis or edema. SKIN: No diffuse rash. The skin is warm and moist. NEUROLOGIC: Nonfocal. PSYCHIATRIC: Calm and cooperative. Assessment and Plan (1) MRSA (methicillin resistant staphylococcus aureus) pneumonia Status: Acute Code(s): J15.212 - Pneumonia due to Methicillin resistant Staphylococcus aureus (2) Empyema Status: Acute Code(s): J86.9 - Pyothorax without fistula - Plan IMPRESSION: 1. Right lung empyema. Methicillin resistant Staphylococcus aureus positive culture. 2. Leukocytosis secondary to empyema. Stable. RECOMMENDATIONS: 1. Continue the vancomycin IV x 4 more weeks. Orders written on infusion form. Labs ordered. PICC ordered. 2. Can be discharged when arrangements are made for outpatient IV antibiotics. 3. Follow up with ID outpatient in 1 week. (1) MRSA (methicillin resistant staphylococcus aureus) pneumonia Qualifiers: Laterality: right Lung location: middle lobe of lung Qualified Code(s): J15.212 - Pneumonia due to Methicillin resistant Staphylococcus aureus
--- NOTE | 2018-05-25 16:58 | P.PNCA ---
- Note Subjective/Hospital Course: No complaints. Right chest tube is clamped. 05/22/18 Patient with copious purulent drainage from right chest tube. No complaints otherwise. 05/23/18 Doing well, no complaints 05/24/18 no drainage from chest tube/ no air leak chest tube removed without difficulty pt chest tube site had yellowish foul smelling purulent drainage tube was not securely sutured site cleansed with chlorhexidine / sterile vaseline gauze dressing applied f/u CXR in am if worsening effusion / may need to consider right vats with decortication 05/25 CXR stable no PTX continue antibotics will see prn ok to remove current chest dressing in am / with wound care Objective: Vital Signs - 24 hr 05/24/18 19:59 05/24/18 20:00 05/24/18 22:15 Temperature 98.1 F Pulse Rate 89 88 Respiratory Rate 17 18 Blood Pressure 118/64 Pulse Oximetry 94 L 05/25/18 00:00 05/25/18 00:11 05/25/18 01:09 Temperature 97.9 F Pulse Rate 77 66 Respiratory Rate 17 18 Blood Pressure 132/68 Pulse Oximetry 92 L 05/25/18 04:50 05/25/18 08:00 05/25/18 08:06 Temperature 98.5 F 98.4 F Pulse Rate 79 80 68 Respiratory Rate 17 18 Blood Pressure 134/65 133/68 Pulse Oximetry 95 93 L 05/25/18 09:11 05/25/18 12:00 05/25/18 12:01 Temperature 98.6 F Pulse Rate 107 H 88 76 Respiratory Rate 17 18 15 Blood Pressure 127/68 Pulse Oximetry 96 05/25/18 16:00 Temperature 98.4 F Pulse Rate 75 Respiratory Rate 18 Blood Pressure 129/63 Pulse Oximetry 94 L GENERAL: SKIN: Warm and dry. dressing to right lateral chest wall HEAD: Normocephalic. EYES: No scleral icterus. No injection or drainage. NECK: Supple, trachea midline. No JVD or lymphadenopathy. CARDIOVASCULAR: Regular rate and rhythm without murmurs, gallops, or rubs. RESPIRATORY: Breath sounds equal bilaterally. No accessory muscle use. GASTROINTESTINAL: Abdomen soft, non-tender, nondistended. MUSCULOSKELETAL: No cyanosis, or edema. BACK: Nontender without obvious deformity. No CVA tenderness. Labs: Laboratory Results - last 12 hr 05/25/18 05/25/18 05/25/18 07:56 11:43 13:25 POC Glucose 128 H 233 H Vancomycin Trough 5.6 05/25/18 16:01 POC Glucose 240 H Vancomycin Trough Result Diagrams: 05/24/18 13:43 05/22/18 06:34 - Plan (1) Pneumothorax, acute Plan: Chest tube has been clamped by Dr. Sanders. Will review CXR tomorrow. He may have an issue with pleural fluid, but I do not see an air leak. If his CXR is stable, agree with pulling tube. chest tube removed f/u CXR in am leave current dressing in place until Thursday, then ok to remove, and allow pt to shower chest xray stable remove dressing in am / then ok to shower wash site with antibacterial soap daily / dry dressing if any drainage
[2018-05-25] MEDS: Vancomycin Inj 2,000 MG in Sodium Chlor 0.9% Inj 500 ML IV.SIG SCH (17:12)
[2018-05-25] MEDS ORDERED: Heparin Central Flush 100 UNIT/ML 5 ML Vial IV.FLUSH PRN (17:48)
--- NOTE | 2018-05-25 20:41 | P.PNPL ---
Subjective Interval history: 62 YOWM with PTX On RA Breathing better Ambulates No Fever Physical Exam Vital signs: Vital Signs 05/24/18 22:15 05/25/18 00:00 05/25/18 00:11 Temperature 97.9 F Pulse Rate 77 66 Respiratory Rate 18 17 Blood Pressure 132/68 Pulse Oximetry 92 L Pulse Oximetry [Resting on Room Air] Pulse Oximetry [Resting with Oxygen] 05/25/18 01:09 05/25/18 04:50 05/25/18 08:00 Temperature 98.5 F 98.4 F Pulse Rate 79 80 Respiratory Rate 18 17 18 Blood Pressure 134/65 133/68 Pulse Oximetry 95 93 L Pulse Oximetry [Resting on Room Air] Pulse Oximetry [Resting with Oxygen] 05/25/18 08:06 05/25/18 09:11 05/25/18 12:00 Temperature 98.6 F Pulse Rate 68 107 H 88 Respiratory Rate 17 18 Blood Pressure 127/68 Pulse Oximetry 96 Pulse Oximetry [Resting on Room Air] Pulse Oximetry [Resting with Oxygen] 05/25/18 12:01 05/25/18 16:00 05/25/18 17:02 Temperature 98.4 F Pulse Rate 76 75 76 Respiratory Rate 15 18 Blood Pressure 129/63 Pulse Oximetry 94 L Pulse Oximetry [Resting on Room Air] Pulse Oximetry [Resting with Oxygen] 05/25/18 18:30 Temperature Pulse Rate Respiratory Rate Blood Pressure Pulse Oximetry Pulse Oximetry [Resting on Room Air] 95 Pulse Oximetry [Resting with Oxygen] 96 Intake & Output 05/25/18 05/25/18 05/26/18 06:59 18:59 06:59 Intake Total 720 / 720 1100 / 1100 Balance 720 / 720 1100 / 1100 Weight 111.7 kg 111.7 kg Intake: Oral 720 / 720 1100 / 1100 Other: # Voids 3 4 Date of Last Bowel Movement 05/21/18 05/25/18 # Bowel Movements 0 1 GENERAL: WBWN WM,NAD SKIN: Warm and dry. HEAD: Normocephalic. EYES: No scleral icterus. No injection or drainage. NECK: Supple, trachea midline. No JVD or lymphadenopathy. CARDIOVASCULAR: Regular rate and rhythm without murmurs, gallops, or rubs. RESPIRATORY: Breath sounds equal bilaterally. No accessory muscle use. GASTROINTESTINAL: Abdomen soft, non-tender, nondistended. MUSCULOSKELETAL: No cyanosis, or edema. BACK: Nontender without obvious deformity. No CVA tenderness. Assessment and Plan - Plan IMPRESSION: Right PTX COPD Nicotine use H/O AAA repair Chest wall pain Pleural effusion, Empyema PLAN: Chest tube removed Abx per ID Supplement 02 Percocet for pain DW Pt
[2018-05-26] MEDS: Vancomycin Inj 1,500 MG in Sodium Chlor 0.9% Inj 500 ML IV.SIG SCH ×2 (02:59→14:04)
[2018-05-26 05:21] VITALS: O2SAT 95
--- NOTE | 2018-05-26 07:24 | XR ---
EXAM DATE: 05/26/2018 7:14 AM EDT AGE/SEX: 63 years / Male INDICATIONS: . Short of breath. CLINICAL DATA: This is the patient's subsequent encounter. Patient reports that signs and symptoms h ave been present for 1 week and indicates a pain score of Nonresponsive. MEDICAL/SURGICAL HISTORY: None. . Abdominal aortic aneurysm repair. Right sided chest tube. COMPARISON: [facility], CHEST 1V SINGLE AP, 05/25/2018. . FINDINGS: A single AP view of the chest demonstrates persistent bilateral pleural effusions with associated bib asilar atelectasis. Overall, the lung bases are better aerated, particularly on the right. Stable mil dly enlarged cardiac silhouette. New right upper extremity PICC with distal tip projecting over th e cavoatrial junction. No appreciable pneumothorax. Right lateral chest wall subcutaneous emphysema. CONCLUSION: 1. Persistent bilateral pleural effusions and bibasilar atelectasis. 2. Overall improved aeration, particularly in the right lung base. 3. New right upper extremity PICC in appropriate position. Electronically signed by: Alyson Brewer MD 05/26/2018 7:22 AM EDT
[2018-05-26] MEDS ORDERED: Heparin Central Flush 100 UNIT/ML 5 ML Vial IV.FLUSH SCH (09:00)
[2018-05-26] MEDS: guaiFENesin 600 MG ER Tablet PO SCH (09:39)
[2018-05-26] MEDS: Budesonide-Formoterol 80/4.5 MCG 6.9 GM Inhaler INH SCH (09:41)
--- NOTE | 2018-05-26 09:50 | P.DCO ---
- Home Health Nursing Order: Medical education, Signs/symptoms of disease process, Diabetic education , Medication education-adverse effect, Wound care and dressing changes, Nursing assessment with vital signs Instructions: Dry dressing if any drainage - Certification I have seen patient Jan Vang on 05/26/18. My clinical findings support the need for the requested home health care services because: Limited mobility due to disease progression, Deconditioned with increased weakness, Limited ability to care for self, Infection with risk of complications I certify that my clinical findings support that this patient is homebound because: Unsafe to leave home unassisted
--- NOTE | 2018-05-26 09:59 | P.DS ---
Date of admission: 05/07/18 12:40 Primary care physician: Adair Jesus MD Anticipated date of discharge: 05/26/18 Brief History from admission: Patient is a 62-year-old obese male with past medical history significant for long-standing tobacco abuse, history of AAA status post repair who presented to the emergency department with ongoing shortness of breath and cough. Apparently he woke up yesterday morning with severe coughing spell which progressed to severe shortness of breath and chest pain. DS: Diagnosis - Discharge Diagnosis (1) Pneumothorax, acute Status: Acute (2) COPD (chronic obstructive pulmonary disease) Status: Chronic DS: Medications - Discharge Medications Prescriptions: albuterol sulfate 1 puff INHALATION Q4-6H PRN #1 inhaler PRN Reason: Shortness Of Breath budesonide-formoterol [Symbicort] 1 puff INHALATION Q12H #1 g clotrimazole 10 mg BUCCAL 5 TIMES A DAY 7 Days tab ipratropium bromide [Atrovent HFA] 1 puff INHALATION QID #1 inhaler oxycodone-acetaminophen [Percocet] 1 tab PO Q4-6H PRN #12 tab PRN Reason: Pain DS: Summary Hospital Course: Recurrent right-sided pneumothorax Chest x-ray done in ED showed a spontaneous pneumothorax on the right side. A right pigtail chest tube was placed with expansion of the pneumothorax. Patient was admitted to the hospitalist service. The patient became acutely short of breath. A stat chest x-ray showed large tension pneumothorax in the right-sided with dislodgment of the pigtail chest tube. The patient was emergently moved to the ICU and the forestry and wildlife manager was consulted. Patient was in severe distress with an oxygen saturation of 75% on a 100% nonrebreather. The forestry and wildlife manager placed an emergent right-sided pigtail catheter with immediate relief of symptoms and improvement in O2 sat. He was started on breathing treatments, steroids, Symbicort and Atrovent. He was also started on antibiotics. Repeat chest x-ray showed a right sided moderate pneumothorax despite right pigtail chest tube in place. A large bore chest tube was placed. Pulmonology and CT surgery were consulted. When the tube was clamped pus started draining from the chest tube. Broad spectrum antibiotics were started and infectious disease was consulted. Steroids were discontinued and he passed the home oxygen walk test. He will continue IV vancomycin with home health care per ID recommendations. He will follow up with ID and pulmonology upon discharge. He will continue breathing treatments. Pain S/t chest tube. The pt received pain control with a bowel regimen. He will be discharged with pain medications. E-FORCSE was checked. New onset DM A1c 6.8%. family life educator was consulted. We monitored blood sugars and placed the pt on an insulin sliding scale. We discontinued steroids. He will focus on lifestyle modifications and will follow up with his PCP. Thrush The pt complained of the development of thrush. He was started on clotrimazole troches and will follow up with his PCP and infectious disease. - Time Spent with Patient Total time spent providing and/or coordinating discharge services: Greater than 30 minutes Exam Vital signs: Vital Signs 05/25/18 12:00 05/25/18 12:01 05/25/18 16:00 Temperature 98.6 F 98.4 F Pulse Rate 88 76 75 Respiratory Rate 18 15 18 Blood Pressure 127/68 129/63 Pulse Oximetry 96 94 L Pulse Oximetry [Resting on Room Air] Pulse Oximetry [Resting with Oxygen] 05/25/18 17:02 05/25/18 18:30 05/25/18 20:00 Temperature 98.1 F Pulse Rate 76 87 Respiratory Rate 17 Blood Pressure 148/65 H Pulse Oximetry 95 Pulse Oximetry [Resting on Room Air] 95 Pulse Oximetry [Resting with Oxygen] 96 05/25/18 21:23 05/26/18 00:25 05/26/18 04:00 Temperature 98.9 F 97.9 F Pulse Rate 75 74 Respiratory Rate 17 16 Blood Pressure 118/75 135/74 Pulse Oximetry 95 94 L 95 Pulse Oximetry [Resting on Room Air] Pulse Oximetry [Resting with Oxygen] 05/26/18 08:40 Temperature Pulse Rate 72 Respiratory Rate 17 Blood Pressure Pulse Oximetry 95 Pulse Oximetry [Resting on Room Air] Pulse Oximetry [Resting with Oxygen] Intake & Output 05/25/18 05/26/18 05/26/18 18:59 06:59 18:59 Intake Total 1100 / 1100 960 / 960 Balance 1100 / 1100 960 / 960 Weight 111.7 kg 111.8 kg Intake: Oral 1100 / 1100 960 / 960 Other: # Voids 4 4 Date of Last Bowel Movement 05/25/18 # Bowel Movements 1 0 Narrative: GENERAL: This is a well-nourished, well-developed patient, in no apparent distress CARDIOVASCULAR: Regular rate and rhythm RESPIRATORY: CTAB GASTROINTESTINAL: Abdomen soft, non-tender, nondistended. Normal active bowel sounds MUSCULOSKELETAL: Bandage in place over right chest wall. Extremities without clubbing, cyanosis, or edema NEURO: Alert & Oriented x4 to person, place, time, situation. Moves all ext x4 Results Procedures completed during hospitalization: chest tube right Labs on day of discharge: Labs from last 24 hours 05/25/18 05/25/18 05/25/18 21:40 16:01 13:25 POC Glucose 177 H 240 H Vancomycin Trough 5.6 05/25/18 11:43 POC Glucose 233 H Vancomycin Trough - Impressions ITS Impressions Chest CT 05/22/18 00:00 CONCLUSION: 1. [id number] right hydropneumothorax with a right-sided chest tube. 2. There is a consolidation or atelectasis at the right middle lobe, right lower lobe and to a lesser degree the anterior left lower lobe. 3. Soft tissue emphysema. 4. Emphysematous change seen within the lungs. 5. Hepatic steatosis. Chest X-Ray 05/26/18 06:00 CONCLUSION: 1. Persistent bilateral pleural effusions and bibasilar atelectasis. 2. Overall improved aeration, particularly in the right lung base. 3. New right upper extremity PICC in appropriate position. Discharge Plan - Discharge Disposition Patient Disposition: W/Home Health Service - Discharge Condition Condition: Stable - Discharge Order Discharge Orders: Discharge Order (Routine); Ordered 05/26/18 Ordered By: Alex Garcia - Discharge Details Anticipated Discharge Date: 05/26/18 Discharge Comment: OK to discharge when home antibiotics are arranged - Physicians Team Primary Care Provider: Adair Jesus Attending Provider: Alex Garcia Other Providers: Bety Mayfield MD ; Domingo Vilchis MD ; Kaushal Barroso MD ; Gurdeep Atkinson MD ; [facility] - Rxs /Orders / Referrals /Forms Prescriptions: New albuterol sulfate 90 mcg/actuation Hfa Aerosol Inhaler 1 puff INHALATION Q4-6H PRN (Reason: Shortness Of Breath) Qty: 1 RF: 0 aspirin 81 mg Tablet,Delayed Release (Dr/Ec) 81 mg PO DAILY RF: 0 budesonide-formoterol [Symbicort] 80-4.5 mcg/actuation Hfa Aerosol Inhaler 1 puff INHALATION Q12H Qty: 1 RF: 0 clotrimazole 10 mg Yoselin 10 mg buccal 5 TIMES A DAY 7 Days RF: 0 ipratropium bromide [Atrovent HFA] 17 mcg/actuation Hfa Aerosol Inhaler 1 puff INHALATION QID Qty: 1 RF: 0 oxycodone-acetaminophen [Percocet] 5-325 mg Tablet 1 tab PO Q4-6H PRN (Reason: Pain) Qty: 12 RF: 0 vancomycin 10 gram Recon Soln 1,500 mg IV Q12H RF: 0 Discontinued aspirin 325 mg Tablet 325 mg PO DAILY Ambulatory Orders / Order Sets / DME: Oxygen Tank (2 liter) (Routine) Location: Determined by Patient Ordered By: Eder Sanders Referrals: Domingo Vilchis MD [Physician] - See Instructions (1wk) Adair Jesus MD [Primary Care Provider] - See Instructions (1 wk) Olga Soto MD [Physician] - See Instructions (one week )
[2018-05-26 12:18] VITALS: PULSE 86; RESP 18
[2018-05-26 14:14] VITALS: BP 123/70; TEMP 98.4
[2018-05-26] MEDS: Clotrimazole 10 MG Troche BUCCAL SCH ×2 (14:31→16:16)
[2018-05-26] MEDS: Heparin - SQ 10,000 UNITS/ML Vial SQ SCH ×2 (14:32→16:15)
[2018-05-26] MEDS: Insulin NovoLOG Aspart Correctional Sugar Inj SQ SCH (22:11)
[2018-05-27] MEDS ORDERED: Pharmacy Ordered Lab Info OTHER ONE (01:45)
== END 2018-05-26 16:59 | disposition home health service (06) ==
LOC: N07 12:40 → N03 05-08 11:15 → N06 05-11 22:50
PROVIDERS: ADMIT Hospitalist; ATTEND Hospitalist